=== PATIENT | female | born 1955 ===

== ENCOUNTER → 2019-01-18 13:37 | Outpatient (CLI) | payer OTHER, SELFPAY ==
[2019-01-18 14:15] LABS: Add Manual Diff / Slide Review NO; Basophils Absolute Auto 0 /uL (0-100); Basophils Percent Auto 0.1 % (0-2); Eosinophils Absolute Auto 300 /uL (0-450); Eosinophils Percent Auto 3.4 % (2-4); Hematocrit 38.5 % (36-46); Hemoglobin 13.3 g/dL (12.0-16.0); Lymphocytes Absolute Auto 1800 /uL (1100-4500); Lymphocytes Percent Auto 21.3 % (25-40); Mean Corpuscular HGB Conc 34.6 % (30-36); Mean Corpuscular Hemoglobin 28.4 PG (26-34); Monocytes Absolute Auto 500 /uL (0-900); Monocytes Percent Auto 5.3 % (3-14); Neutrophils Absolute Auto 6000 /uL (1500-7000); Neutrophils Percent Auto 69.9 % (50-75); Platelet Count 263 X10^3/uL (150-400); Red Cell Distribution Width 14.3 % (11.6-14.8); White Blood Cell Count 8.5 X10^3/uL (4.5-11.0)
[2019-01-18 14:44] LABS: Alanine Aminotransferase 77 IU/L (9-52); Albumin 4.7 g/dL (3.5-5.0); Albumin Globulin Ratio 1.4 (1.0-2.8); Alkaline Phosphatase 79 U/L (38-126); Aspartate Aminotransferase 65 IU/L (14-36); BUN Creatinine Ratio 15.7 (6-22); Bilirubin Total 0.6 mg/dL (0.2-1.3); Blood Urea Nitrogen 11 mg/dL (7-17); Calcium 9.6 mg/dL (8.4-10.2); Carbon Dioxide 28 mmol/L (22-32); Chloride 99 mmol/L (98-107); Cholesterol 218 mg/dL (140-199); Estimated Glomerular Filt Rate > 60.0 mL/min (>60); Globulin 3.4 g/dL (1.7-4.1); Glucose 111 mg/dL (80-110); HDL Cholesterol 42 mg/dL (40-60); HEMOLYSIS < 15 (0-50); LDL Cholesterol Calculated 138 mg/dL (<100); Potassium 4.1 mmol/L (3.4-5.1); Sodium 139 mmol/L (137-145); Total Protein 8.1 g/dL (6.3-8.2); Triglycerides 190 mg/dL (35-150)
[2019-01-18 15:19] LABS: TSH w/ Reflex to FT4 0.61 uIU/mL (0.47-4.68)
== END ==
PROVIDERS: PCP Nurse Practitioner; Visit Provider Nurse Practitioner
DX: I10 Essential (primary) hypertension (principal); E66.01 Morbid (severe) obesity due to excess calories; E88.81 Metabolic syndrome and other insulin resistance
CPT/HCPCS: 36415; 80053; 80061; 84443; 85025

== ENCOUNTER 2019-01-18 21:45 | Emergency (ER) | payer OTHER, SELFPAY ==
[2019-01-18 21:50] VITALS: BP 191/92; PULSE 88; RESP 16; TEMP 36.1; O2SAT 97; BMI 42.2
[2019-01-19] VITALS: BP 156/72; PULSE 78; RESP 16; TEMP 36.8; O2SAT 96
[2019-01-19] MEDS: SULFACETAMIDE 10% OPHTH PREPACK 1 BOTTLE MISC (01:10)
[2019-01-19 01:19] VITALS: BP 162/81; PULSE 84; RESP 16; O2SAT 97
--- NOTE | 2019-01-19 04:57 | ED.EYEPROB ---
HPI - Eye Problem General Chief complaint: Eye Problems Stated complaint: LT EYE NOT WORKING RIGHT, PAIN Time Seen by Provider: 01/18/19 22:27 Source: patient and family Mode of arrival: ambulatory Limitations: no limitations History of Present Illness HPI Narrative: 63-year-old female, nonsmoker presents to the emergency department with her in the chief complaint of severe left eye irritation, pain, watering with discharge and blurred vision over the course of the day. She states that she frequently will wake up with irritated eyes are watering and she takes antihistamines and often has to rub them. She does not wear contacts. She denies any other symptoms such as runny nose, sore throat or fever or chills. She has had no rash on her face, the tip of her nose or in her ear. She called the nursing hotline and was encouraged to present to the emergency department for evaluation chief complaint: eye pain and eye redness Onset (ago): hour(s) Onset description: gradual Duration: constant Location: left eye Eye Symptoms: burning, redness, pain, foreign body sensation, itching, discharge and decreased vision Place: home Mechanism: none Severity: moderate If Pain, Quality: burning Treatments Prior to Arrival: none Related Data Home Medications Medication Instructions Recorded Confirmed cetirizine 10 mg tablet 10 mg PO DAILY 01/13/19 01/13/19 Previous Rx's Medication Instructions Recorded [[id number] VAG PERLE] 0 VAGINAL SEE INSTRUCTIONS #30 ea 08/25/17 lisinopril 20 mg tablet 20 mg PO Q DAY #90 tab 11/02/18 Allergies Allergy/AdvReac Type Severity Reaction Status Date / Time doxycycline [DOXYCYCLINE] Allergy Mild DIARRHEA Verified 01/18/19 21:49 erythromycin base Allergy Mild DIARRHEA Verified 01/18/19 21:49 [ERYTHROMYCIN BASE] Review of Systems Constitutional Denies chills, Denies fever(s), Denies lethargy and Denies weakness Eyes Reports change in vision, Reports eye discharge, Reports irritation, Reports itchy eyes and Denies loss of vision ENT Ears, Nose, Mouth, and Throat: Denies change in voice, Denies neck pain and Denies sore throat Cardiovascular Denies chest pain, Denies irregular heart rhythm, Denies lightheadedness, Denies palpitations, Denies dyspnea, Denies dyspnea on exertion and Denies orthopnea Respiratory Denies cough, Denies dyspnea, Denies dyspnea on exertion and Denies wheezing Gastrointestinal Gastrointestinal: Denies abdominal pain, Denies change in bowel habits, Denies diarrhea, Denies nausea and Denies vomiting Genitourinary Denies hematuria, Denies flank pain, Denies urinary incontinence and Denies urinary urgency Musculoskeletal Denies neck pain Integumentary/Breasts Denies pruritus, Denies erythema, Denies rash and Denies wounds Neurologic Denies confusion, Denies loss of vision and Denies weakness Psychiatric Denies anxiety, Denies confusion, Denies depression, Denies homicidal ideation and Denies suicidal ideation Endocrine Denies palpitations Hematologic/Lymphatic Denies easy bruising Allergic/Immunologic Reports itchy eyes and Denies wheezing FORMERLY [facility], [facility] Surgical History History of tonsillectomy Status post dilation and curettage Status post hysterectomy with oophorectomy (12/12/13) Family History (Updated 02/25/16 @ 00:00 by Conversion Provider) Father Cancer Heart disease Grandfather Hypertension Stroke Grandmother Cancer High cholesterol Stroke Mother Age: 79 Breast cancer Cervical cancer Diabetes mellitus Grandfather Liver failure Grandmother Heart disease Social History Smoking Status: Never smoker Family History Father Cancer Heart disease Grandfather Hypertension Stroke Grandmother Cancer High cholesterol Stroke Mother Age: 79 Breast cancer Cervical cancer Diabetes mellitus Grandfather Liver failure Grandmother Heart disease Social History Smoking Status: Never smoker Exam Narrative Exam Narrative: GENERAL: 63-year-old female appears younger than stated age, resting in a dark room but obviously uncomfortable, covering her left eye HEAD: Atraumatic. Normocephalic. No temporal or scalp tenderness. EYES: Pupils are equal and reactive. left eye is erythematous, watering with some drainage. There is a corneal abrasion visible to the naked eye. Upper lid everted and no foreign body noted. near complete resolution of symptoms after proparacaine instilled in eye. Pressure obtained with Clifton-Pen notes 22 in left. Fluorescein uptake overlying the central field of view. No erythematous, warmth or swelling to upper or lower lid ENT: Nose without bleeding, purulent drainage or septal hematoma. Throat without erythema, tonsillar hypertrophy or exudate. Uvula midline. Airway patent. NECK: Trachea midline. No JVD or lymphadenopathy. Supple, nontender, no meningeal signs. CARDIOVASCULAR: Regular rate and rhythm without murmurs, gallops, or rubs. RESPIRATORY: Clear to auscultation. Breath sounds equal bilaterally. No wheezes, rales, or rhonchi. GASTROINTESTINAL: Abdomen soft, non-tender, nondistended. No hepato-splenomegaly, or palpable masses. No guarding. EXTREMITIES: No clubbing, cyanosis, or edema. No joint tenderness, effusion, or edema noted. BACK: Nontender without deformity or crepitance. No flank tenderness. NEURO: AOx3. SKIN: No rash or erythema. Initial Vital Signs Initial Vital Signs: Vital Signs Temperature 97.0 F L 01/18/19 21:50 Pulse Rate 88 01/18/19 21:50 Respiratory Rate 16 01/18/19 21:50 Blood Pressure 191/92 H 01/18/19 21:50 Pulse Oximetry 97 01/18/19 21:50 Course Orders Ordered: Discontinued Medications Sulfacetamide (Bleph-10 Prepack) 1 bottle MISC SEEINSTR ONE Stop: 01/19/19 00:59 Last Admin: 01/19/19 01:10 Dose: 1 bottle Vital Signs - 8 hr 01/18/19 21:50 01/19/19 00:00 01/19/19 01:19 Temperature 97.0 F L 98.2 F Pulse Rate 88 78 84 Respiratory Rate 16 16 16 Blood Pressure 191/92 H 162/81 H Blood Pressure [Left Arm] 156/72 H Pulse Oximetry 97 96 97 MDM - Eye Problem MDM Narrative Medical decision making narrative: Corneal abrasion with superinfection thought most likely cause given above described history and physical. Acute angle closure glaucoma considered but thought less likely given reactivity of pupil and normal pressure. Preseptal cellulitis considered but thought less likely given lack of consistent findings Discharge Plan Departure Patient Disposition: Home Clinical Impression: Corneal abrasion Qualifiers: Encounter type: initial encounter Laterality: left Qualified Code(s): S05.02XA - Injury of conjunctiva and corneal abrasion without foreign body, left eye, initial encounter Conjunctivitis Qualifiers: Conjunctivitis type: acute Acute conjunctivitis type: unspecified Laterality: left Qualified Code(s): H10.32 - Unspecified acute conjunctivitis, left eye Discharge Date/Time: 01/19/19 01:20 Interventions: ED Discharge Assessment Last Done: 01/19/19 01:19 Instructions: DI for Corneal Abrasion Activity Restrictions/Additional Instructions: *You have been diagnosed with [acute corneal abrasion with conjunctivitis ] *What to do: *Take medications as directed *Follow up with your host/hostess ground, call for an appointment. Let them know you were seen in the Emergency Department and that we ask that you be seen in follow up *Return to ER if you should have any new, worsening or concerning symptoms Prescriptions: No Action [[id number] VAG PERLE] Vaginal SEE INSTRUCTIONS Qty: 30 RF: 5 lisinopril [Prinivil] 20 mg tablet 20 mg PO Q DAY Qty: 90 RF: 0 cetirizine [Zyrtec] 10 mg tablet 10 mg PO DAILY RF: 0 Referrals: Jenn Loza ARNP [Primary Care Provider] - Eusebio Hawthorne MD [Physician] -
== END 2019-01-19 01:20 | disposition home or self-care (01) ==
PROVIDERS: Emergency Provider Emergency Medicine; PCP Nurse Practitioner
DX: S05.02XA Injury of conjunctiva and corneal abrasion without foreign body, left eye, initial encounter (principal)
CPT/HCPCS: 99283

== ENCOUNTER → 2019-01-19 14:00 | Outpatient (CLI) | payer OTHER, SELFPAY | PROVIDERS: PCP Nurse Practitioner; Visit Provider Ophthalmology | DX: H16.9 Unspecified keratitis (principal) | CPT/HCPCS: 87070; 87205; 87252 ==

== ENCOUNTER → 2019-01-20 07:45 | Outpatient (CLI) | payer OTHER, SELFPAY ==
--- NOTE | 2019-01-20 | DI.MG.S_ITS ---
BILATERAL DIGITAL SCREENING MAMMOGRAM 3D/2D WITH CAD: 01/20/2019 CLINICAL: Routine screening. Family history of breast cancer. Comparison is made to exams dated: 07/13/2013 mammogram, 02/09/2012 mammogram, and 02/06/2011 mammogram - [facility]. There are scattered fibroglandular elements in both breasts. Current study was also evaluated with a Computer Aided Detection (CAD) system. There is an oval circumscribed benign-appearing intramammary lymph node projecting over the right breast superior aspect posterior depth that is stable in size and morphology on multiple prior comparison exams dating back to at least 02/09/2012, but projects slightly more anteriorly due to patient positioning. There is an oval circumscribed benign-appearing intramammary lymph node projecting over the left breast superior medial aspect middle depth that is stable in size and morphology on multiple prior comparison exams dating back to at least 02/09/2012. There also are benign-appearing secretory calcifications in both breasts. No significant masses, calcifications, or other findings are seen in either breast. There has been no significant interval change. IMPRESSION: There is no mammographic evidence of malignancy. A 1 year screening mammogram is recommended. This exam was interpreted at Station ID: [id number]. NOTE: For mammograms, a report in lay terms will be sent to the patient. Approximately 15% of breast malignancies will not be visualized mammographically. In the management of a palpable breast mass, a negative mammogram must not discourage biopsy of a clinically suspicious lesion. Electronically Signed By: Alvin Quan M.D. ecl/:01/20/2019 12:04:57 letter sent: Normal Exam ACR BI-RADS Category 2: Benign Finding(s) 3342F
== END ==
PROVIDERS: PCP Nurse Practitioner; Visit Provider Nurse Practitioner
DX: Z12.31 Encounter for screening mammogram for malignant neoplasm of breast (principal)
CPT/HCPCS: 77063; 77067

== ENCOUNTER → 2019-01-25 17:30 | Outpatient (REF) | payer OTHER, SELFPAY | LOC: LAB 17:30 | PROVIDERS: PCP Nurse Practitioner; Visit Provider Ophthalmology | DX: H16.9 Unspecified keratitis (principal) | CPT/HCPCS: 87070; 87205; 87206 ==

== ENCOUNTER → 2019-01-27 19:28 | Outpatient (REF) | payer OTHER, SELFPAY | LOC: LAB 19:28 | PROVIDERS: PCP Nurse Practitioner; Visit Provider Ophthalmology | DX: Z22.322 Carrier or suspected carrier of Methicillin resistant Staphylococcus aureus (principal) | CPT/HCPCS: 87081 ==

== ENCOUNTER → 2020-03-23 08:23 | Outpatient (CLI) | payer OTHER, SELFPAY ==
[2020-03-23 09:38] LABS: Hemoglobin A1C% w Est Avg Glu 6.9 % (4.0-6.0)
[2020-03-23 09:44] LABS: Alanine Aminotransferase 69 IU/L (<35); Albumin 4.4 g/dL (3.5-5.0); Albumin Globulin Ratio 1.3 (1.0-2.8); Alkaline Phosphatase 70 U/L (38-126); Aspartate Aminotransferase 56 IU/L (14-36); BUN Creatinine Ratio 17.7 (6-22); Bilirubin Total 0.5 mg/dL (0.2-1.3); Blood Urea Nitrogen 11 mg/dL (7-17); Calcium 9.6 mg/dL (8.4-10.2); Carbon Dioxide 28 mmol/L (22-32); Chloride 100 mmol/L (98-107); Cholesterol 126 mg/dL (140-199); Estimated Glomerular Filt Rate > 60.0 mL/min (>60); Globulin 3.3 g/dL (1.7-4.1); Glucose 141 mg/dL (80-110); HDL Cholesterol 37 mg/dL (40-60); HEMOLYSIS < 15 (0-50); LDL Cholesterol Calculated 60 mg/dL (<100); Potassium 3.9 mmol/L (3.4-5.1); Sodium 137 mmol/L (137-145); Total Protein 7.7 g/dL (6.3-8.2); Triglycerides 146 mg/dL (35-150)
[2020-03-23 10:15] LABS: Thyroid Stimulating Hormone 0.89 uIU/mL (0.47-4.68)
[2020-03-23 10:41] LABS: Creatinine Urine Random 128.5 mg/dL
[2020-03-23 10:45] LABS: Microalbumi Creatinin Ratio Ur 8.5 ug/mg CR (<30); Microalbumin Urine Random 1.1 mg/dL (0-1.6)
[2020-03-26 11:09] LABS: Fecal Immunochemical Test Negative (Negative)
== END ==
PROVIDERS: PCP Nurse Practitioner; Referring Provider Nurse Practitioner; Visit Provider Nurse Practitioner
DX: Z13.29 Encounter for screening for other suspected endocrine disorder (principal); Z12.11 Encounter for screening for malignant neoplasm of colon; E66.01 Morbid (severe) obesity due to excess calories; E88.81 Metabolic syndrome and other insulin resistance; I10 Essential (primary) hypertension
CPT/HCPCS: 36415; 80053; 80061; 82043; 82274; 82570; 83036; 84443

== ENCOUNTER → 2020-05-21 08:36 | Outpatient (CLI) | payer OTHER, SELFPAY ==
--- NOTE | 2020-05-21 08:37 | DI.MG.S_ITS ---
BILATERAL DIGITAL SCREENING MAMMOGRAM 3D/2D WITH CAD: 05/21/2020 CLINICAL: Routine screening. Family history of breast cancer. Comparison is made to exams dated: 01/20/2019 mammogram, 07/13/2013 mammogram, and 02/09/2012 mammogram - [facility]. There are scattered fibroglandular elements in both breasts. Current study was also evaluated with a Computer Aided Detection (CAD) system. There is a benign intramammary node in both breasts. There also are benign calcifications in both breasts. No significant masses, calcifications, or other findings are seen in either breast. There has been no significant interval change. IMPRESSION: BENIGN There is no mammographic evidence of malignancy. A 1 year screening mammogram is recommended. This exam was interpreted at Station ID: [id number]. NOTE: For mammograms, a report in lay terms will be sent to the patient. Approximately 15% of breast malignancies will not be visualized mammographically. In the management of a palpable breast mass, a negative mammogram must not discourage biopsy of a clinically suspicious lesion. Electronically Signed By: Jarek aldana/[place]:05/21/2020 10:02:19 letter sent: Normal Exam ACR BI-RADS Category 2: Benign Finding(s) 3342F
== END ==
PROVIDERS: PCP Nurse Practitioner; Referring Provider Nurse Practitioner; Visit Provider Nurse Practitioner
DX: Z12.31 Encounter for screening mammogram for malignant neoplasm of breast (principal); Z80.3 Family history of malignant neoplasm of breast
CPT/HCPCS: 77063; 77067

== ENCOUNTER → 2020-08-08 07:39 | Outpatient (CLI) | payer OTHER, SELFPAY ==
[2020-08-08 08:21] LABS: Hemoglobin A1C% w Est Avg Glu 5.8 % (4.0-6.0)
[2020-08-08 09:14] LABS: Alanine Aminotransferase 34 IU/L (<35); Albumin 4.5 g/dL (3.5-5.0); Albumin Globulin Ratio 1.5 (1.0-2.8); Alkaline Phosphatase 75 U/L (38-126); Aspartate Aminotransferase 35 IU/L (14-36); Bilirubin Total 0.5 mg/dL (0.2-1.3); Bilirubin Unconjugated 0.5 mg/dL (0.0-1.1); Glucose 103 mg/dL (80-110); HEMOLYSIS < 15 (0-50); Total Protein 7.5 g/dL (6.3-8.2)
== END ==
PROVIDERS: PCP Nurse Practitioner; Referring Provider Nurse Practitioner; Visit Provider Nurse Practitioner
DX: E66.01 Morbid (severe) obesity due to excess calories (principal); E78.5 Hyperlipidemia, unspecified; E88.81 Metabolic syndrome and other insulin resistance; I10 Essential (primary) hypertension; Z79.899 Other long term (current) drug therapy
CPT/HCPCS: 36415; 80076; 82947; 83036

== ENCOUNTER → 2020-10-23 07:33 | Outpatient (CLI) | payer OTHER, SELFPAY ==
[2020-10-23 08:27] LABS: Hemoglobin A1C% w Est Avg Glu 5.7 % (4.0-6.0)
[2020-10-23 17:11] LABS: Creatinine Urine Random 65.6 mg/dL
[2020-10-23 17:21] LABS: Microalbumin Urine Random < 0.6 mg/dL (0-1.6)
== END ==
PROVIDERS: PCP Nurse Practitioner; Referring Provider Nurse Practitioner; Visit Provider Nurse Practitioner
DX: R73.01 Impaired fasting glucose (principal)
CPT/HCPCS: 36415; 82043; 82570; 83036

== ENCOUNTER → 2021-02-12 09:28 | Outpatient (CLI) | payer OTHER, SELFPAY ==
[2021-02-12 10:25] LABS: Hemoglobin A1C% w Est Avg Glu 5.4 % (4.0-6.0)
== END ==
PROVIDERS: PCP Nurse Practitioner; Referring Provider Nurse Practitioner; Visit Provider Nurse Practitioner
DX: E66.09 Other obesity due to excess calories (principal); R73.01 Impaired fasting glucose; Z68.34 Body mass index [BMI] 34.0-34.9, adult; Z79.899 Other long term (current) drug therapy
CPT/HCPCS: 36415; 83036

== ENCOUNTER → 2021-03-23 08:43 | Outpatient (CLI) | payer OTHER, SELFPAY ==
[2021-03-23 09:53] LABS: Hemoglobin A1C% w Est Avg Glu 5.4 % (4.0-6.0)
[2021-03-23 09:59] LABS: Alanine Aminotransferase 24 IU/L (<35); Albumin 4.2 g/dL (3.5-5.0); Albumin Globulin Ratio 1.5 (1.0-2.8); Alkaline Phosphatase 62 U/L (38-126); Aspartate Aminotransferase 27 IU/L (14-36); BUN Creatinine Ratio 27.6 (6-22); Bilirubin Total 0.4 mg/dL (0.2-1.3); Blood Urea Nitrogen 16 mg/dL (7-17); Calcium 9.8 mg/dL (8.4-10.2); Carbon Dioxide 29 mmol/L (22-32); Chloride 104 mmol/L (98-107); Cholesterol 128 mg/dL (140-199); Estimated Glomerular Filt Rate > 60.0 mL/min (>60); Globulin 2.8 g/dL (1.7-4.1); Glucose 97 mg/dL (80-110); HDL Cholesterol 59 mg/dL (40-60); HEMOLYSIS < 15 (0-50); LDL Cholesterol Calculated 57 mg/dL (<100); Potassium 4.3 mmol/L (3.4-5.1); Sodium 139 mmol/L (137-145); Triglycerides 60 mg/dL (35-150)
[2021-03-23 10:16] LABS: Free T3, Triiodothyronine Free 3.89 pg/mL (2.77-5.27); Free T4, Direct Thyroxine 1.07 ng/dL (0.78-2.19)
[2021-03-23 10:30] LABS: Thyroid Stimulating Hormone 1.32 uIU/mL (0.47-4.68)
[2021-03-23 11:07] LABS: Creatinine Urine Random 38.6 mg/dL
[2021-03-23 11:13] LABS: Microalbumin Urine Random < 0.6 mg/dL (0-1.6)
== END ==
PROVIDERS: PCP Nurse Practitioner; Referring Provider Nurse Practitioner; Visit Provider Nurse Practitioner
DX: Z00.00 Encounter for general adult medical examination without abnormal findings (principal); I10 Essential (primary) hypertension; E78.5 Hyperlipidemia, unspecified; R73.01 Impaired fasting glucose; Z79.899 Other long term (current) drug therapy
CPT/HCPCS: 36415; 80053; 80061; 82043; 82570; 83036; 84439; 84443; 84481

== ENCOUNTER → 2022-10-30 09:08 | Outpatient (CLI) | payer OTHER, SELFPAY ==
[2022-10-30 11:06] LABS: COVID19 -Nasal RAPID Negative (Negative)
== END ==
PROVIDERS: PCP Nurse Practitioner; Visit Provider Surgery
DX: Z20.822 Contact with and (suspected) exposure to COVID-19 (principal); Z01.812 Encounter for preprocedural laboratory examination
CPT/HCPCS: 87635; C9803

== ENCOUNTER 2022-10-31 06:53 | Day surgery (SDC) | payer OTHER, SELFPAY ==
[2022-10-31 07:26] VITALS: BMI 35.2
[2022-10-31 07:35] VITALS: BP 139/86; PULSE 76; RESP 16; TEMP 36.2; O2SAT 95
[2022-10-31] MEDS: ONDANSETRON 4 MG/2 ML INJ IV (07:37)
[2022-10-31] MEDS: LACTATED RINGERS 1,000 ML 84 ML IV (07:46)
--- NOTE | 2022-10-31 07:50 | PM.HP.1 ---
History of Present Illness History of Present Illness Chief complaint: SCREENING COLONOSCOPY Narrative: Ms. Weiss has never had a colonoscopy before she is here today for screening. She has no family history of colon cancer. She is not had any bleeding or changes in her bowel habits that are concerning. She has had a hysterectomy for prolapse and a knee replacement and condition runs in her family which makes her have a lot of bone spurs. She has had nausea with anesthesia in the past Patient History Medical History Class 1 obesity due to excess calories with body mass index (BMI) of 34.0 to 34.9 in adult Elevated fasting blood sugar Hyperlipidemia Left knee pain (02/20/15) Metabolic syndrome (08/25/17) Morbid obesity with body mass index (BMI) of 40.0 to 49.9 (02/20/15) Non-insulin dependent diabetes mellitus Other care home (current) drug therapy Surgical History History of tonsillectomy S/P total knee arthroplasty Status post dilation and curettage Status post hysterectomy with oophorectomy (12/12/13) Family & Social History Family History Father Cancer Heart disease Grandfather Hypertension Stroke Grandmother Cancer High cholesterol Stroke Mother Age: 83 Breast cancer Cervical cancer Diabetes mellitus Grandfather Liver failure Grandmother Heart disease Tobacco & Substance use: Smoking Status Never smoker alcohol intake frequency holiday/special occasion Substance Use Type does not use Meds Home Medications and Allergies Home Medications Medication Instructions Recorded Confirmed Type cetirizine 10 mg tablet (Zyrtec) 10 mg PO DAILY 01/13/19 10/31/22 History adjuvant AS01B (PF)vial 1 of 2 0.5 ml IM ONCE #0.5 mL 01/20/19 10/31/22 Rx (Shingrix Adjuvant Component (PF) intramuscular suspension) ascorbic acid (vitamin C) 500 mg mg PO 03/13/20 09/02/22 History capsule cholecalciferol (vitamin D3) 25 25 mcg PO DAILY 03/13/20 10/31/22 History mcg (1,000 unit) capsule fexofenadine 60 mg tablet (Meena 60 mg PO BID 03/13/20 10/31/22 History Allergy) lactobacillus combination no.8 PO 03/13/20 09/02/22 History [Adult Probiotic] multivitamin 1 tab PO DAILY 03/13/20 10/31/22 History blood-glucose meter #1 ea 03/27/20 09/02/22 Rx lancets #200 ea 03/27/20 09/02/22 Rx blood sugar diagnostic (Blood #200 ea 04/04/21 09/02/22 Rx Glucose Test strips) atorvastatin 10 mg tablet See Rx Instructions .Route 08/27/22 10/31/22 Rx .COMPLEX #90 tabs Allertec See Rx Instructions .Route 09/02/22 10/31/22 Rx .COMPLEX #1 cap Cinnamon 1000mg See Rx Instructions .Route .COMPLEX 09/02/22 10/31/22 History Elderberry Gummies See Rx Instructions .Route .COMPLEX 09/02/22 10/31/22 History Turmeric Chromium See Rx Instructions .Route .COMPLEX 09/02/22 10/31/22 History acyclovir 400 mg tablet See Rx Instructions .Route 09/02/22 10/31/22 Rx .COMPLEX #20 tabs hydrochlorothiazide 25 mg tablet See Rx Instructions .Route 09/26/22 Rx .COMPLEX #90 tabs lisinopril 20 mg tablet See Rx Instructions .Route 09/26/22 10/31/22 Rx .COMPLEX #90 tabs sodium,potassium,mag sulfates 17.5 See Rx Instructions PO .COMPLEX 10/17/22 10/31/22 Rx gram-3.13 gram-1.6 gram oral soln #354 mL (Suprep Bowel Prep Kit) Allergies Allergy/AdvReac Type Severity Reaction Status Date / Time doxycycline [DOXYCYCLINE] Allergy Mild DIARRHEA Verified 10/31/22 07:21 erythromycin base Allergy Mild DIARRHEA Verified 10/31/22 07:21 [ERYTHROMYCIN BASE] Exam Vital Signs (past 8 hours): - 10/31/22 07:35 Temperature 97.1 F L Pulse Rate 76 Respiratory Rate 16 Blood Pressure 139/86 Pulse Oximetry 95 Oxygen Delivery Method Room Air Oxygen Delivery Method Room Air Const General: cooperative and healthy appearing Nutritional Appearance: obese HENMT Head: normal to inspection Resp Effort & Inspection: normal respiratory effort and able to speak in complete sentences GI Palpation: soft and No tender Assessment & Plan Assessment and plan (1) Screening for colon cancer: Status: Acute Assessment & Plan narrative: I discussed the risks benefits and alternatives of a screening colonoscopy with Ms. Weiss it specifically I discussed the risk of an incomplete exam or perforation of the colon for risks though they are rare. She fully understands and would like to proceed Time Spent With Patient Critical Care time: I spent a total of [] minutes of critical care time on this patient's care today; this time is exclusive of procedural time.
[2022-10-31 08:30] VITALS: BP 112/64; PULSE 78; RESP 16; TEMP 36.2; O2SAT 98
[2022-10-31 08:33] VITALS: BP 105/60; PULSE 56; RESP 12; TEMP 36.7; O2SAT 97
--- NOTE | 2022-10-31 08:41 | P.OP.COLON_ITS ---
Procedure & Clinicians Study performed: Colonoscopy Same procedure as scheduled: Yes Indications: Screening Surgeon: Ellen Stevens Procedure Notes Procedure in detail: Patient was taken to the endoscopy suite and placed in a left lateral decubitus position. Time-out was performed. Conscious sedation was performed by anesthesiologist Dr. Corbin. A digital rectal exam was performed no strictures or masses were felt. The colonoscope was introduced into the anal canal and advanced through to the cecum. A photograph was taken of the appendiceal orifice. A few scattered diverticula were seen in the sigmoid colon. No polyps were appreciated. No biopsy was taken. The prep was very good [place] bowel prep 3. Specimen(s): none sent Complications: none
[2022-10-31 08:45] VITALS: BP 101/66; PULSE 57; RESP 97; TEMP 36.8; O2SAT 98
== END 2022-10-31 09:00 | disposition home or self-care (01) ==
PROVIDERS: PCP Nurse Practitioner; Referring Provider Surgery; Visit Provider Surgery
PROC: 0DJD8ZZ Inspection of Lower Intestinal Tract, Via Natural or Artificial Opening Endoscopic (ICD-10-PCS; CPT 45378; principal; 2022-10-31 07:45)
DX: Z12.11 Encounter for screening for malignant neoplasm of colon (principal); K57.30 Diverticulosis of large intestine without perforation or abscess without bleeding
CPT/HCPCS: 45378; J2405; J2704

== ENCOUNTER → 2022-11-03 08:59 | Outpatient (CLI) | payer OTHER, SELFPAY ==
[2022-11-03 10:16] LABS: Creatinine Urine Random 107.2 mg/dL
[2022-11-03 10:19] LABS: Hemoglobin A1C% w Est Avg Glu 5.7 % (4.0-6.0)
[2022-11-03 10:20] LABS: Microalbumi Creatinin Ratio Ur 6.5 ug/mg CR (<30); Microalbumin Urine Random 0.7 mg/dL (0-1.6)
[2022-11-03 10:39] LABS: Alanine Aminotransferase 25 IU/L (<35); Albumin 4.5 g/dL (3.5-5.0); Albumin Globulin Ratio 1.3 (1.0-2.8); Alkaline Phosphatase 69 U/L (38-126); Aspartate Aminotransferase 27 IU/L (14-36); Bilirubin Total 0.5 mg/dL (0.2-1.3); Blood Urea Nitrogen 13 mg/dL (7-17); Calcium 9.4 mg/dL (8.4-10.2); Carbon Dioxide 25 mmol/L (22-32); Chloride 104 mmol/L (98-107); Cholesterol 149 mg/dL (140-199); Estimated Glomerular Filt Rate > 60 mL/min (>60); Globulin 3.6 g/dL (1.7-4.1); Glucose 108 mg/dL (80-110); HDL Cholesterol 40 mg/dL (40-60); HEMOLYSIS < 15 (0-50); LDL Cholesterol Calculated 79 mg/dL (<100); Potassium 3.9 mmol/L (3.4-5.1); Sodium 140 mmol/L (137-145); Total Protein 8.1 g/dL (6.3-8.2); Triglycerides 148 mg/dL (35-150)
[2022-11-03 10:53] LABS: Free T3, Triiodothyronine Free 3.68 pg/mL (2.77-5.27); Free T4, Direct Thyroxine 1.17 ng/dL (0.78-2.19)
[2022-11-03 11:07] LABS: Thyroid Stimulating Hormone 1.32 uIU/mL (0.47-4.68)
--- NOTE | 2022-11-03 12:43 | DI.MG.S_ITS ---
BILATERAL DIGITAL SCREENING MAMMOGRAM 3D/2D WITH CAD: 11/03/2022 CLINICAL: Routine screening. Family history of breast cancer. Comparison is made to exams dated: 05/21/2020 mammogram, 01/20/2019 mammogram, and 07/13/2013 mammogram - [facility]. There are scattered areas of fibroglandular density in both breasts (category b / 25%-50% glandular tissue). Current study was also evaluated with a Computer Aided Detection (CAD) system. There is a benign intramammary node in both breasts. There also are benign calcifications in both breasts. No significant masses, calcifications, or other findings are seen in either breast. There has been no significant interval change. IMPRESSION: BENIGN There is no mammographic evidence of malignancy. A 1 year screening mammogram is recommended. Based on the Tyrer Cuzick model (a risk assessment model) the patient's lifetime risk is 9.8% and her 10 year risk is 4.7%. According to the ACR, ACS, and NCCN guidelines, an annual breast MRI exam along with mammogram is recommended if the patient's lifetime risk is 20% or greater. This exam was interpreted at Station ID: [id number]. NOTE: For mammograms, a report in lay terms will be sent to the patient. Approximately 15% of breast malignancies will not be visualized mammographically. In the management of a palpable breast mass, a negative mammogram must not discourage biopsy of a clinically suspicious lesion. Electronically Signed By: Raghavendra waldron/[place]:11/03/2022 14:12:18 letter sent: Normal Exam ACR BI-RADS Category 2: Benign Finding(s) 3342F
[2022-11-03 17:37] LABS: Hep C Virus Ab w/Reflex Quant NEGATIVE s/c (NEGATIVE)
--- NOTE | 2022-12-04 12:59 | DI.ECHO.S_ITS ---
+ + Reason For Study: HYPERTENSION : :Ordering Physician: LUCILLE, : :HILDA DENNY Performed By: Serenity Mauricio : :Referring: HILDA ADKINS : + + Interpretation Summary The ejection fraction is estimated to be 60-65%. There is mild to moderate mitral regurgitation. There is mild tricuspid regurgitation. Procedure: A two-dimensional transthoracic echocardiogram with color flow and Doppler was performed. The study quality was technically adequate. There is no prior echocardiogram noted for this patient. The patient was in sinus rhythm with heart rates between 58-74 bpm during the exam. Left Ventricle: The left ventricle is normal in size and wall thickness. The ejection fraction is estimated to be 60-65%. Left ventricular wall motion is normal. Right Ventricle: The right ventricle is normal in size and function. Atria: The left atrium is mildly dilated. Right atrial size is normal. There is no Doppler evidence for an interatrial shunt. Mitral Valve: The mitral valve is normal in structure and function. There is mild to moderate mitral regurgitation. Aortic Valve: The aortic valve is trileaflet. The aortic valve opens well. There is no aortic valve stenosis. No aortic regurgitation is present. Tricuspid Valve: The tricuspid valve is normal in structure and function. There is mild tricuspid regurgitation. Pulmonary artery pressures cannot be estimated because of the lack of a measurable TR jet velocity. Pulmonic Valve: The pulmonic valve leaflets are thin and pliable; valve motion is normal. There is mild pulmonic regurgitation. Great Vessels: The aortic root is normal size. The dimensions of the ascending aorta are normal. The IVC is of normal diameter and collapses greater than 50% with a sniff. This suggests a low right atrial pressure of 3 mm Hg. Pericardium/ Pleura There is no pericardial effusion. There is no pleural effusion. MMode/2D Measurements & Calculations LVIDd: 4.3 cm LVOT diam: 2.2 cm LVIDs: 2.8 cm Ao root diam: 3.1 cm FS: 35.5 % asc Aorta Diam: 3.1 cm IVSd: 1.0 cm Ao Arch Diam (Prox Trans): 2.5 cm LVPWd: 0.87 cm LV tristan. diameter/BSA (cm/m^2): 2.4 LV sys. diameter/BSA (cm/m^2): 1.6 LA A2 area: 18.8 cm2 RA long axis: 4.9 cm LA A4 area: 18.2 cm2 RA area: 14.3 cm2 LA length (vol): 4.8 cm RA vol: 35.5 ml LA vol: 60.7 ml RA : 19.9 ml/m2 LA vol index: 34.1 ml/m2 IVC diam: 1.6 cm RVD1 (basal): 3.8 cm RVD2 (mid): 3.2 cm TAPSE: 1.6 cm Doppler Measurements & Calculations Ao V2 max: 131.7 cm/sec LVOT Max Federico: 108.3 cm/sec Ao V2 mean: 97.0 cm/sec LV V1 max P.7 mmHg Ao max P.9 mmHg LV V1 VTI: 23.8 cm Ao mean P.2 mmHg NOLVIA(I,D): 3.4 cm2 Ao V2 VTI: 26.6 cm NOLIVA(V,D): 3.1 cm2 sev ratio: 0.90 NOLVIA indexed to BSA (cm^2/m^2): 1.9 MV E max federico: 75.8 cm/sec PA V2 max: 94.6 cm/sec MV A max federico: 66.2 cm/sec PA V2 mean: 61.9 cm/sec MV E/A: 1.1 PA mean P.8 mmHg Med Peak E' Federico: 5.0 cm/sec PA pr(Accel): 20.8 mmHg E/E' med: 15.3 Lat Peak E' Federico: 8.1 cm/sec E/E' lat: 9.4 E/e' average: 12.3 MV dec time: 0.22 sec SV(LVOT): 90.8 ml Reading Physician:03:20 PM
== END ==
PROVIDERS: PCP Nurse Practitioner; Referring Provider Nurse Practitioner; Visit Provider Nurse Practitioner
DX: Z12.31 Encounter for screening mammogram for malignant neoplasm of breast (principal); Z80.3 Family history of malignant neoplasm of breast; Z13.820 Encounter for screening for osteoporosis; Z78.0 Asymptomatic menopausal state; I10 Essential (primary) hypertension; E11.9 Type 2 diabetes mellitus without complications; E78.2 Mixed hyperlipidemia; Z11.59 Encounter for screening for other viral diseases; Z79.899 Other long term (current) drug therapy; Z90.710 Acquired absence of both cervix and uterus
CPT/HCPCS: 36415; 77063; 77067; 77080; 80053; 80061; 82043; 82570; 83036; 84439; 84443; 84481; 86803; 93306

== ENCOUNTER → 2022-12-09 13:26 | Outpatient (CLI) | payer OTHER, SELFPAY | PROVIDERS: PCP Nurse Practitioner; Referring Provider Nurse Practitioner; Visit Provider Nurse Practitioner | DX: I10 Essential (primary) hypertension (principal) | CPT/HCPCS: 93005 ==

== ENCOUNTER → 2023-03-12 07:45 | Outpatient (CLI) | payer OTHER, SELFPAY ==
[2023-03-12 08:44] LABS: Alanine Aminotransferase 28 IU/L (<35); Albumin 4.7 g/dL (3.5-5.0); Albumin Globulin Ratio 1.6 (1.0-2.8); Alkaline Phosphatase 65 U/L (38-126); Aspartate Aminotransferase 28 IU/L (14-36); BUN Creatinine Ratio 21.9 (6-22); Bilirubin Total 0.7 mg/dL (0.2-1.3); Blood Urea Nitrogen 14 mg/dL (7-17); Calcium 9.7 mg/dL (8.4-10.2); Carbon Dioxide 28 mmol/L (22-32); Chloride 99 mmol/L (98-107); Estimated Glomerular Filt Rate > 60 mL/min (>60); Glucose 107 mg/dL (80-110); HEMOLYSIS < 15 (0-50); Potassium 4.1 mmol/L (3.4-5.1); Sodium 137 mmol/L (137-145); Total Protein 7.7 g/dL (6.3-8.2)
[2023-03-12 16:29] LABS: HIV 1 & 2 Ab/Ag 4th Gen Combo NEGATIVE (NEGATIVE)
[2023-03-13 06:44] LABS: x Labcorp Estim. Avg Glu (eAG) 126 mg/dL (.)
== END ==
PROVIDERS: PCP Nurse Practitioner; Referring Provider Nurse Practitioner; Visit Provider Nurse Practitioner
DX: R73.01 Impaired fasting glucose (principal); Z11.4 Encounter for screening for human immunodeficiency virus [HIV]
CPT/HCPCS: 36415; 80053; 83036; 87389

== ENCOUNTER 2023-05-02 11:44 | Emergency (ER) | payer MEDICARE, OTHER, SELFPAY ==
[2023-05-02 11:48] VITALS: BP 149/76; PULSE 61; RESP 18; TEMP 36.6; O2SAT 97; BMI 35.9
--- NOTE | 2023-05-02 11:56 | DI.RAD.S_ITS ---
PROCEDURE: XR SHOULDER LT MIN 2V INDICATIONS: fall/pain TECHNIQUE: 3 views of the shoulder were acquired. COMPARISON: None. FINDINGS: Bones: No fractures or dislocations. No suspicious bony lesions. Visualized ribs appear intact. Degenerative changes of the acromioclavicular and glenohumeral joints. Soft tissues: No suspicious soft tissue calcifications. IMPRESSION: Left shoulder without acute fracture or dislocation. 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 If there is persistent clinical concern for occult fracture given adequate mechanism of injury, consider repeat imaging in 10-14 days. Dictated by: Jarek Diaz M.D. on 05/02/2023 at 11:35 Approved by: Jarek Diaz M.D. on 05/02/2023 at 11:36
--- NOTE | 2023-05-02 11:58 | DI.CT.S_ITS ---
PROCEDURE: CT HEAD/BRAIN WO CON INDICATIONS: fall/headache pain TECHNIQUE: Noncontrast 4.5 mm thick angled axial sections acquired from the foramen magnum to the vertex, with coronal and sagittal reformats. For radiation dose reduction, the following was used: automated exposure control, adjustment of mA and/or kV according to patient size. COMPARISON: None. FINDINGS: Image quality: Excellent. CSF spaces: Basal cisterns are patent. No extra-axial fluid collections. Ventricles are normal in size and shape. Brain: No midline shift. No intracranial masses or hemorrhage. Maradiaga-white matter interface is normal. Skull and face: Left parietal scalp contusion. Calvarium and visualized facial bones are intact, without suspicious lesions. Sinuses: Visualized sinuses and mastoids are clear. IMPRESSION: CT head without acute intracranial abnormalities. Left parietal scalp contusion without underlying calvarial fractures. Dictated by: Jarek Diaz M.D. on 05/02/2023 at 11:31 Approved by: Jarek Diaz M.D. on 05/02/2023 at 11:31
[2023-05-02 13:51] VITALS: BP 171/70; PULSE 57; O2SAT 98
--- NOTE | 2023-05-02 13:59 | ED.HEATRA ---
HPI - Head Injury General Chief complaint: Head Injury Stated complaint: Head inj Time Seen by Provider: 05/02/23 13:59 Source: patient Mode of arrival: Ambulatory History of Present Illness HPI Narrative: Patient is a 68-year-old female history of hypertension hyperlipidemia who presents 6 days after ground level. She is not on antiplatelet or anticoagulation medication. She reports she was running when she slipped and hit her head on a door jam. She hit the top left parietal side of her head. She did not lose consciousness she is not had any nausea vomiting numbness tingling or weakness. She denies any neck pain. She is having some left shoulder pain as well. She called her primary who recommended she take Tylenol rather than ibuprofen however today she is having persistent headache and just wanted to get checked out. She is noted to have significant contusion over her left periorbital area with a subconjunctival hemorrhage. She reports she did not hit her eye she is not having vision changes that the bruising showed up the day after she hit the top of her head. Related Data Home Medications Medication Instructions Recorded Confirmed cetirizine 10 mg tablet (Zyrtec) 10 mg PO DAILY 01/13/19 10/31/22 ascorbic acid (vitamin C) 500 mg mg PO 03/13/20 09/02/22 capsule cholecalciferol (vitamin D3) 25 25 mcg PO DAILY 03/13/20 10/31/22 mcg (1,000 unit) capsule fexofenadine 60 mg tablet (Meena 60 mg PO BID 03/13/20 10/31/22 Allergy) lactobacillus combination no.8 PO 03/13/20 09/02/22 [Adult Probiotic] multivitamin 1 tab PO DAILY 03/13/20 10/31/22 Elderberry Gummies See Rx Instructions .Route .COMPLEX 09/02/22 10/31/22 Turmeric Chromium See Rx Instructions .Route .COMPLEX 09/02/22 10/31/22 Previous Rx's Medication Instructions Recorded blood-glucose meter #1 ea 03/27/20 lancets #200 ea 03/27/20 blood sugar diagnostic (Blood #200 ea 04/04/21 Glucose Test strips) Allertec See Rx Instructions .Route 09/02/22 .COMPLEX #1 cap pneumoc 20-alana conj-dip cr(PF) 0.5 0.5 ml IM ONCE #0.5 mL 12/09/22 mL IM syringe (Prevnar 20 (PF)) tetanus-diphtheria toxoids-Td 2 Lf 0.5 ml IM ONCE #0.5 mL 12/09/22 unit-2 Lf unit/0.5 mL IM suspension varicella-zoster glycoE [id number] 0.5 ml IM ONCE #1 ea 12/09/22 adj(PF) 50 mcg/0.5 mL IM susp, kit (Shingrix (PF)) atorvastatin 10 mg tablet See Rx Instructions .Route 01/05/23 .COMPLEX #90 tabs hydrochlorothiazide 25 mg tablet See Rx Instructions .Route 01/05/23 .COMPLEX #90 tabs lisinopril 20 mg tablet 20 mg PO BID #180 tabs 01/06/23 acyclovir 400 mg tablet 400 mg PO 5XD PRN cold sores #30 03/18/23 tabs estradiol 10 mcg vaginal tablet 10 mcg vaginal DAILY #36 tabs 03/18/23 hydrocodone 5 mg-acetaminophen 325 1 tab PO Q6H PRN pain #10 tabs 05/02/23 mg tablet Allergies Allergy/AdvReac Type Severity Reaction Status Date / Time doxycycline [DOXYCYCLINE] Allergy Mild DIARRHEA Verified 12/09/22 12:08 erythromycin base Allergy Mild DIARRHEA Verified 12/09/22 12:08 [ERYTHROMYCIN BASE] adhesive Allergy Rash Verified 05/02/23 11:48 latex Allergy Rash Verified 05/02/23 11:48 Review of Systems Review of Systems ROS Unobtainable: All systems reviewed & are unremarkable except as noted in HPI and below Patient History Medical History Class 1 obesity due to excess calories with body mass index (BMI) of 34.0 to 34.9 in adult DM (diabetes mellitus), type 2 with ophthalmic complications Elevated fasting blood sugar Hyperlipidemia Left knee pain (02/20/15) Metabolic syndrome (08/25/17) Morbid obesity with body mass index (BMI) of 40.0 to 49.9 (02/20/15) Other senior care (current) drug therapy Pelvic floor dysfunction Surgical History History of tonsillectomy S/P total knee arthroplasty Status post dilation and curettage Status post hysterectomy with oophorectomy (12/12/13) Family History Father Cancer Heart disease Grandfather Hypertension Stroke Grandmother Cancer High cholesterol Stroke Mother Age: 84 Breast cancer Cervical cancer Diabetes mellitus Grandfather Liver failure Grandmother Heart disease Social History household members: spouse Smoking Status: Never smoker Smoking Status: Never smoker alcohol intake frequency: holidays/special occasions only Substance Use Type: does not use Exam Initial Vital Signs Initial Vital Signs: Vital Signs Temperature 98 F 05/02/23 11:48 Pulse Rate 61 05/02/23 11:48 Respiratory Rate 18 05/02/23 11:48 Blood Pressure 149/76 H 05/02/23 11:48 Pulse Oximetry 97 05/02/23 11:48 Oxygen Delivery Method Room Air 05/02/23 11:48 GENERAL: Alert pleasant well-appearing 68-year-old female HEENT: Head left periorbital contusion with left subconjunctival hemorrhage extraocular muscles are intact. Tenderness over superior left parietal area but no depressions crepitations mild hematoma appreciated CARDIOVASCULAR: Regular rate and rhythm without murmurs, rubs or gallops. RESPIRATORY: Breath sounds equal bilaterally, no wheezes rales or rhonchi. EXTREMITIES: Normal range of motion, no clubbing or edema. Neurovascularly intact Left shoulder no gross deformity clavicle does not have any step-off distal radial pulse intact NEUROLOGICAL: Alert and oriented x4.Normal gait and speech. Cranial nerves II through XII grossly intact. SKIN: Warm, dry, no laceration, no petechiae, no rashes or lesions. Course Orders Ordered: ED Orders 05/02/23 11:56 XR shoulder LT min 2V Stat 05/02/23 11:58 CT head/brain wo con Stat Vital Signs Vital signs: Vital Signs - 8 hr 05/02/23 11:48 05/02/23 13:51 05/02/23 14:11 Temperature 98 F Pulse Rate 61 57 L Respiratory Rate 18 Blood Pressure 149/76 H 171/70 H 152/69 H Pulse Oximetry 97 98 97 Oxygen Delivery Method Room Air Room Air Room Air MDM - Head Injury Imaging Data Extremity x-ray #1: Radiologist's Impression: PROCEDURE:? XR SHOULDER LT MIN 2V ? INDICATIONS:? fall/pain ? TECHNIQUE:? 3 views of the shoulder were acquired.? ? COMPARISON:? None. ? FINDINGS:? ? Bones:? No fractures or dislocations.? No suspicious bony lesions.? Visualized ribs appear intact.? Degenerative changes of the acromioclavicular and glenohumeral joints. ? Soft tissues:? No suspicious soft tissue calcifications.? ? IMPRESSION:? Left shoulder without acute fracture or dislocation.? 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 ? If there is persistent clinical concern for occult fracture given adequate mechanism of injury, consider repeat imaging in 10-14 days. ? ? ? Dictated by: Jarek Diaz M.D. on 05/02/2023 at 11:35 ? ? CT scan - head: Radiologist's Impression: PROCEDURE:? CT HEAD/BRAIN WO CON ? INDICATIONS:? fall/headache pain ? TECHNIQUE:? Noncontrast 4.5 mm thick angled axial sections acquired from the foramen magnum to the vertex, with coronal and sagittal reformats.? For radiation dose reduction, the following was used:? automated exposure control, adjustment of mA and/or kV according to patient size.? ? COMPARISON:? None. ? FINDINGS:? Image quality:? Excellent.? ? CSF spaces:? Basal cisterns are patent.? No extra-axial fluid collections.? Ventricles are normal in size and shape.? ? Brain:? No midline shift.? No intracranial masses or hemorrhage.? Maradiaga-white matter interface is normal.? ? Skull and face:? Left parietal scalp contusion.? Calvarium and visualized facial bones are intact, without suspicious lesions.? ? Sinuses:? Visualized sinuses and mastoids are clear.? ? IMPRESSION:? CT head without acute intracranial abnormalities. ? Left parietal scalp contusion without underlying calvarial fractures. ? ? Dictated by: Jarek Diaz M.D. on 05/02/2023 at 11:31? [facility] Narrative Medical decision making narrative: Patient 68-year-old female presenting 6 days after closed head injury. She is no signs or symptoms of intracranial hemorrhage head CT is negative. However she does have symptoms consistent with concussion. She also has significant periorbital contusion she is adamant she did not hit her I that that all showed up the following day. She is not tender no step-offs around the orbital rim no evidence of entrapment. I suspect that this is all swelling and bruising secondary to the hematoma from her head. Shoulder x-ray is also negative but does show arthritic changes. At this time supportive care. Discharge Plan Departure Patient Disposition: Home Clinical Impression: Closed head injury, Contusion of left shoulder Instructions: Concussion Activity Restrictions/Additional Instructions: *You have been diagnosed with closed head injury, contusion left shoulder *What to do: At this time increase activity as tolerated. Expect to have some headache and nausea. However if you are persistently vomiting or headache is on controlled please return to ED. Increase left shoulder movement as tolerated. Ice 20-30 minutes as needed *Continue to take medications as directed Tylenol 650 mg every 4-6 hours if needed for [id number] pain [place] 1 tablet every 6 hours if needed for severe pain *Follow up with your primary care provider in 2-3 days or call [phone] *Return to ER if you should have increased confusion numbness tingling weakness or any new, worsening or concerning symptoms CONTROLLED SUBSTANCE DISCHARGE (Narcotoic/benzodiazepine/Flexeril/Phenergan) 1. You have been prescribed narcotic medications, it does have acetaminophen/Tylenol/paracetamol in it, DO NOT TAKE MORE THAN 4,00mg in 24 hours of Tylenol. TRAMADOL DOES NOT CONTAIN TYLENOL 2. Please understand that we cannot provide further refills of narcotics, benzodiazepines or controlled substances through the ED and her pain management will need to be through your provider. 3. While on these medications you cannot drive or operate heavy machinery. 4. You cannot sign legal documents or perform any duties such as this. 5. As long as you're taking opiate pain medications he should also be taking a stool softener such as Colace, Dulcolax, MiraLAX or prune juice, to help avoid constipation. Prescriptions: New hydrocodone-acetaminophen 5-325 mg tablet 1 tab PO Q6H PRN (Reason: pain) Qty: 10 0RF No Action (DME) Blood Glucose Test Strip See Rx Instructions .ROUTE .MEDSUPPLY Qty: 200 3RF Rx Instructions: Use to check blood glucose twice daily, BRAND PER INSURANCE atorvastatin 10 mg tablet See Rx Instructions .ROUTE .COMPLEX Qty: 90 3RF Dose Instruction: TAKE 1 TABLET BY MOUTH AT BEDTIME Rx Instructions: TAKE 1 TABLET BY MOUTH AT BEDTIME hydrochlorothiazide 25 mg tablet See Rx Instructions .ROUTE .COMPLEX Qty: 90 3RF Dose Instruction: TAKE 1 TABLET(25 MG) BY MOUTH EVERY DAY FOR BLOOD PRESSURE Rx Instructions: TAKE 1 TABLET(25 MG) BY MOUTH EVERY DAY FOR BLOOD PRESSURE lisinopril 20 mg tablet 20 mg PO BID Qty: 180 3RF Rx Instructions: Take 1 tab by mouth twice per day for blood pressure, goal under 130/80 cetirizine [Zyrtec] 10 mg tablet 10 mg PO DAILY Hold Instructions: rotates antihistimine fexofenadine [Meena Allergy] 60 mg tablet 60 mg PO BID ascorbic acid (vitamin C) 500 mg capsule PO cholecalciferol (vitamin D3) 25 mcg (1,000 unit) capsule 25 mcg PO DAILY lactobacillus combination no.8 PO multivitamin Tablet 1 tab PO DAILY (DME) blood-glucose meter [facility] See Rx Instructions .ROUTE .MEDSUPPLY Qty: 1 0RF Rx Instructions: Use to check blood glucose twice daily, BRAND PER INSURANCE (DME) lancets Misc See Rx Instructions .ROUTE .MEDSUPPLY Qty: 200 3RF Rx Instructions: Use to check blood glucose twice daily, BRAND PER INSURANCE Allertec See Rx Instructions .ROUTE .COMPLEX Qty: 1 0RF Rx Instructions: Take 1 daily; Elderberry Gummies See Rx Instructions .ROUTE .COMPLEX Rx Instructions: Take 2 daily; Turmeric Chromium See Rx Instructions .ROUTE .COMPLEX Rx Instructions: Take daily; Shingrix (PF) 50 mcg/0.5 mL suspension for reconstitution 0.5 ml IM ONCE Qty: 1 0RF Rx Instructions: as a single dose Prevnar 20 (PF) 0.5 mL syringe 0.5 ml IM ONCE Qty: 0.5 0RF Rx Instructions: as a single dose tetanus-diphtheria toxoids-Td 2-2 Lf unit/0.5 mL suspension 0.5 ml IM ONCE Qty: 0.5 0RF Rx Instructions: Administer once, Td booster acyclovir 400 mg tablet 400 mg PO 5XD PRN (Reason: cold sores) Qty: 30 2RF estradiol 10 mcg tablet 10 mcg vaginal DAILY Qty: 36 3RF Rx Instructions: Insert vaginally every other day (3x/week) Referrals: Jenn Loza ARNP [Primary Care Provider] - Stand Alone Forms: Patient Portal/API
[2023-05-02 14:11] VITALS: BP 152/69; O2SAT 97
== END 2023-05-02 14:13 | disposition home or self-care (01) ==
PROVIDERS: Emergency Provider Emergency Medicine; Family Provider Nurse Practitioner; PCP Nurse Practitioner
DX: S09.90XA Unspecified injury of head, initial encounter (principal); S40.012A Contusion of left shoulder, initial encounter; W01.0XXA Fall on same level from slipping, tripping and stumbling without subsequent striking against object, initial encounter
CPT/HCPCS: 70450; 73030; 99284

== ENCOUNTER → 2023-07-13 10:46 | Outpatient (CLI) | payer MEDICARE, OTHER, SELFPAY ==
[2023-07-13 12:44] LABS: Add Manual Diff / Slide Review NO; Basophils Absolute Auto 0 /uL (0-100); Basophils Percent Auto 0.3 % (0-2); Eosinophils Absolute Auto 200 /uL (0-450); Eosinophils Percent Auto 4.2 % (2-4); Hematocrit 36.3 % (36-46); Hemoglobin 12.8 g/dL (12.0-16.0); Lymphocytes Absolute Auto 1400 /uL (1100-4500); Lymphocytes Percent Auto 25.2 % (25-40); Mean Corpuscular HGB Conc 35.1 % (30-36); Mean Corpuscular Hemoglobin 29.1 PG (26-34); Mean Corpuscular Volume 82.8 fL (80-100); Monocytes Absolute Auto 400 /uL (0-900); Neutrophils Absolute Auto 3400 /uL (1500-7000); Neutrophils Percent Auto 63.3 % (50-75); Platelet Count 264 X10^3/uL (150-400); Red Blood Cell Count 4.38 X10^6/uL (4.0-5.2); Red Cell Distribution Width 14.2 % (11.6-14.8); White Blood Cell Count 5.4 X10^3/uL (4.5-11.0)
[2023-07-13 12:49] LABS: Hemoglobin A1C% w Est Avg Glu 5.5 % (4.0-6.0)
[2023-07-13 13:15] LABS: Creatinine Urine Random 138.5 mg/dL
[2023-07-13 13:17] LABS: Alanine Aminotransferase 25 IU/L (<35); Albumin 4.5 g/dL (3.5-5.0); Albumin Globulin Ratio 1.3 (1.0-2.8); Alkaline Phosphatase 67 U/L (38-126); Aspartate Aminotransferase 26 IU/L (14-36); BUN Creatinine Ratio 20.3 (6-22); Bilirubin Total 0.5 mg/dL (0.2-1.3); Blood Urea Nitrogen 14 mg/dL (7-17); Carbon Dioxide 28 mmol/L (22-32); Chloride 99 mmol/L (98-107); Estimated Glomerular Filt Rate > 60 mL/min (>60); Globulin 3.4 g/dL (1.7-4.1); Glucose 98 mg/dL (80-110); HEMOLYSIS < 15 (0-50); Potassium 3.7 mmol/L (3.4-5.1); Sodium 136 mmol/L (137-145); Total Protein 7.9 g/dL (6.3-8.2)
[2023-07-13 13:23] LABS: Microalbumin Urine Random 0.7 mg/dL (0-1.6)
[2023-07-13 13:33] LABS: Free T3, Triiodothyronine Free 3.95 pg/mL (2.77-5.27); Free T4, Direct Thyroxine 1.03 ng/dL (0.78-2.19)
[2023-07-13 13:46] LABS: Thyroid Stimulating Hormone 1.29 uIU/mL (0.47-4.68)
== END ==
PROVIDERS: Family Provider Nurse Practitioner; PCP Nurse Practitioner; Referring Provider Nurse Practitioner; Visit Provider Nurse Practitioner
DX: E11.39 Type 2 diabetes mellitus with other diabetic ophthalmic complication (principal); E78.5 Hyperlipidemia, unspecified; I10 Essential (primary) hypertension; R73.01 Impaired fasting glucose
CPT/HCPCS: 36415; 80053; 82043; 82570; 83036; 84439; 84443; 84481; 85025

== ENCOUNTER 2023-07-20 15:00 | Outpatient (RCR) | payer MEDICARE, OTHER, SELFPAY ==
--- NOTE | 2023-05-11 17:36 | PT.OIE ---
Current Diagnoses Muscle weakness (generalized) (05/11/23) Other specified disorders of muscle (05/11/23) Urge incontinence (05/11/23) Incomplete defecation (05/11/23) Past Medical History (Last Reviewed 05/07/23 @ 10:18 by Gary Alston DO) Class 1 obesity due to excess calories with body mass index (BMI) of 34.0 to 34.9 in adult DM (diabetes mellitus), type 2 with ophthalmic complications Elevated fasting blood sugar Facial contusion Hyperlipidemia Left knee pain (02/20/15) Left shoulder strain Metabolic syndrome (08/25/17) Morbid obesity with body mass index (BMI) of 40.0 to 49.9 (02/20/15) Other salvage determiner (current) drug therapy Pelvic floor dysfunction Past Surgical History (Last Reviewed 05/07/23 @ 10:18 by Gary Alston DO) History of tonsillectomy S/P total knee arthroplasty Status post dilation and curettage Status post hysterectomy with oophorectomy (12/12/13) Visit Care Team Role Provider Type DENISHA Hills Attending Provider Advanced Property Site Manager Family Provider Primary Care Provider Referring Provider Specialty: [facility] Address: [address] [place] [address] Email: [email or web address] Physical Therapy Initial Evaluation PT-OP-A Visit Information Start: 04/17/23 20:09 Freq: Status: Active Protocol: Document 05/11/23 10:31 LRN (Rec: 05/11/23 12:18 TOM [id number]) Out-Patient Physical Therapy Visit Information Visit Information Visit Type Initial Evaluation Visit Start Time 10:31 Visit Stop Time 11:22 Total Visit Minutes 51 Visit Number 1 Evaluation Information Evaluation Date 05/11/23 Precautions Precautions Possible tape/latex allergy, Diabetes type 2, arthritis, L knee replacement 2015, D&C several since 1977. PT-OP-B Current Condition Start: 04/17/23 20:09 Freq: Status: Active Protocol: Document 05/11/23 10:31 LRN (Rec: 05/11/23 12:18 [id number]) Current Condition History of Current Condition Onset Date 12/2022 Current Complaints Urinary leakage w/urgency, trigger of seeing toilet, self asst BM History of Current Condition Pt was having pap smear and referring physician was concerned of another prolapse. States she started estrodial 12/2022 and was referred for PT. Pt is not sure what PT will do. Pt also reports has difficulty sometimes with BM and requires pressure applied to perineum to void. Prior Treatments and Tests Bladder lift with hysterectomy by Dr. Rojas ~7 yrs ago. Developmental History Developmental History Vaginal with epiziotomy with all 3 kids (1977, 1979, miscarrage between [id number], 1982) and fissure with first child. Treatment Goals Patient/Caregiver Goals Pt goal is: Decrease symptoms of urinary urge leakage with urgency, and decrease need for self assist with BM (pressure applied to perineum) to void. Independent HEP. Personal Factors Other Personal Factors That May Effect Bladder lift with hysterectomy Therapy/Recovery 7 yrs ago, D& C several since 1977, arthritis. PT-OP-C Subjective Start: 04/17/23 20:09 Freq: Status: Active Protocol: Document 05/11/23 10:31 LRN (Rec: 05/11/23 12:18 LRN [id number]) Patient Questionnaires Pelvic Pain and Urgency/Frequency Patient Symptom Scale Pelvic Pain Score 5 PT-OP-I Pelvic Floor Start: 04/17/23 20:09 Freq: Status: Active Protocol: Document 05/11/23 10:31 LRN (Rec: 05/11/23 12:18 LRN [id number]) Pelvic Floor Assessment Urine Urinary Symptoms Urge Sensation Leakage Size Small Leakage Cause Urge Leaks Per Day Once every couple weeks not able to make it to bathroom Voiding Frequency 3-4 hrs, sometimes 1-2x/day, sometimes 3x. Nocturia 1 Pads Used In 24 Hours 0 Bowel Bowel Surgery No Bowel Symptoms Constipation,Uncontrolled Flatulence Other Bowel Symptoms Frequency 5-6x/day or sometimes not. Bowel Movement Frequency 1-4 Lorimor Stool Chart Comments Type 3-4 Prolapse Cystocele Grade 2 Rectocele Grade 2 Contraction Ability Voluntary Contraction Moderate Manual Muscle Testing Left 1 Manual Muscle Testing Right 2 Manual Muscle Testing Anterior 2 Manual Muscle Testing Posterior 3 Muscle Endurance (Seconds) 3 Number of Quick Contractions In 10 9 Seconds Comments Pelvic Floor Comments Pt uses substitute ms of abdominals, gluteals and hip AD's to assist with PF contractions. PT-OP-J Posture/Palpation/Skin Start: 04/17/23 20:09 Freq: Status: Active Protocol: Document 05/11/23 10:31 LRN (Rec: 05/11/23 12:18 LRN [id number]) Posture Evaluation Position Standing Head/C-Spine Posture Forward Head T-Spine Posture Increased Kyphosis L-Spine Posture Increased Lordosis Shoulder Posture (L) Rounded,(R) Rounded,(L) Forward,(R) Forward,(L) Elevated Arm Posture (L) Internally Rotated,(R) Internally Rotated Pelvis Posture Anteriorly Tilted Weight Distribution Weight Shifted Right Comments Posture Comments C-curve of spine with apex T6- T7 PT-OP-K Range of Motion Start: 04/17/23 20:09 Freq: Status: Active Protocol: Document 05/11/23 10:31 LRN (Rec: 05/11/23 12:18 LRN [id number]) Lumbar Spine Range of Motion Lumbar Spine Active Degrees Testing Position Standing Flexion 90 Extension 15 Rotation Left 30 Rotation Right 35 Lateral Flexion Left 18 Lateral Flexion Right 15 ROM Limitations Soft Tissue Tightness Comments Trunk AROM: Flexion is 90 deg ?s with 68 deg?s hip flexion, Trunk extension is 15 deg?s with 13 deg?s hip extension. Hip Goniometric Range of Motion Hip Right Passive Testing Position Supine Internal Rotation 20 External Rotation 50 Left Passive Testing Position Supine Internal Rotation 25 External Rotation 40 PT-OP-M Strength Start: 04/17/23 20:09 Freq: Status: Active Protocol: Document 05/11/23 10:31 LRN (Rec: 05/11/23 12:18 LRN [id number]) Trunk Strength Trunk Manual Muscle Testing Core Stabilization Core weakness as noted with loss of stabilization with MMT of LE's (weakness with rotation, TA). Hip Strength Hip Manual Muscle Testing Right Flexion (L2) 4 Good Extension (S1) 3 Fair Adduction 1 Trace Comments Generally 5/5 except as indicated above. Pt breathholds with MMT and positional changes. Left Flexion (L2) 4 Good Extension (S1) 3 Fair External Rotation 3+ Fair+ Comments Generally 5/5 except as indicated above. Pt breathholds with MMT and positional changes. PT-OP-Q Treatments Start: 04/17/23 20:09 Freq: Status: Active Protocol: Document 05/11/23 10:31 LRN (Rec: 05/11/23 12:18 LRN [id number]) Self-Care/Home Management Treatment Education Patient Education Home Exercise Program Other Education Discussed results of evaluation, goals, and plan of care (POC). Pt agreeable to goals and POC. Pt educated in use of Bladder Diary and I/S in tracking for 1 week. Discussed use of bladder/food diary for tracking of bladder and bowel. Activities Self-Care/Home Management Activities Issued & reviewed HEP: Kegel ex's and discussed exercise of Quick Flicks, Long Holds and Aggravators. PT-OP-T Assessment and Plan Start: 04/17/23 20:09 Freq: Status: Active Protocol: Document 05/11/23 10:31 LRN (Rec: 05/11/23 12:18 [facility] [id number]) Physical Therapy Assessment Rehab Potential Rehabilitation Potential Good Evaluation Complexity Number of Personal Factors/Comorbidities 1-2 Number of Body Systems Impaired 4 or More Clinical Presentation at Evaluation Evolving Impairments Impairments Posture,ROM,Soft Tissue Mobility,Strength,Transfers Goals Three Impairment Self assist sometimes needed to have a bowel movement Short Term Goal (STG) Pt education in Bowel massage and bowel management program. STG Duration 7 weeks (06/16/23) Retirement Goal (LTG) Decrease need for self assist with BM (pressure applied to perineum) to void. LTG Duration 12 weeks (08/09/23) Two Impairment Urinary urge incontinence Short Term Goal (STG) Pt education in urge deference technique and fluid recommendations (amt & type). STG Duration 2 weeks (05/19/23) Recovery Auditor Goal (LTG) Improve PF strength to decrease symptoms of urinary leakage with a strong urge LTG Duration 12 weeks (08/09/23) One Impairment Lacks appropriate self care HEP Short Term Goal (STG) Pt educated in proper transfers to lessen core abdominal pressure. STG Duration 3 weeks (05/29/23) Retirement Goal (LTG) Pt will be independent in a self care HEP for PF strengthening. LTG Duration 12 weeks (08/09/23) Assessment Summary Assessment Pt is a 68 yo female who presents with urge incontinence and difficulty with bowel movements sometimes requiring manual assist with pressure on perineum to voiding (rectocele ). Grade 2 cystocele and rectocele. She is using self assist sometimes to have bowel movement; therefore the pt may need further medical assessment if she is not able to improve with physical therapy. She demonstrates substitution of abdominal, gluteal and hip muscles to perform a PF contraction with minimal contraction of the anterior PF noted (no visible clitoral nod, but obvious anal wing present). She tends to hold her breath with PF contractions. She appears to have soft tissue, postural and mechanical changes that contribute to her PF weakness. The pt will benefit from skilled physical therapy to address the previously stated dysfunctions and to promote changes to achieve the above stated goals. Physical Therapy Plan Frequency and Duration Frequency of Treatment 1x/Week Duration of treatment (weeks) 12 Plan of Care Start Date 05/11/23 Plan of Care End Date 08/09/23 Therapeutic Interventions Therapeutic Interventions Home Exercise Program,Joint Mobilizations,Manual Therapy, Neuromuscular Re-education, Self-Care/Home Management,Soft Tissue Mobilization, Therapeutic Activities, Therapeutic Exercises Modalities Biofeedback,Electric Stimulation,Hot Packs Next Visit Focus/Plan Next Note Type Treatment Note Next Visit Plan Assess bladder diary and bowel involvement with recommendations as appropriate . Education: Urge deference technique and fluid recommendations (amt & type), Bowel massage and bowel management program, PF contractions in isolation of substitute muscles, Coordination of proper breaths with ADLs, transfers, body mechanics and exercise. Ex's: Hip stretch (Maciej. ER/IR, IR>ER) Core strengthening (rotation, TA). Weak Hip Maciej flex, ext , & R AD. POC: PF strengthening, BM care, pt education, core strengthening, hip stretches.
--- NOTE | 2023-05-11 17:36 | PT.OPPOC ---
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 Family Provider Primary Care Provider Referring Provider Specialty: Family Practice Address: [address] [place] [address], [id number] Email: [email or web address] Plan Of Care PT-OP-T Assessment and Plan Start: 04/17/23 20:09 Freq: Status: Active Protocol: Document 05/11/23 10:31 LRN (Rec: 05/11/23 12:18 LRN [id number]) Physical Therapy Assessment Rehab Potential Rehabilitation Potential Good Evaluation Complexity Number of Personal Factors/Comorbidities 1-2 Number of Body Systems Impaired 4 or More Clinical Presentation at Evaluation Evolving Impairments Impairments Posture,ROM,Soft Tissue Mobility,Strength,Transfers Goals Three Impairment Self assist sometimes needed to have a bowel movement Short Term Goal (STG) Pt education in Bowel massage and bowel management program. STG Duration 7 weeks (06/16/23) Correction Goal (LTG) Decrease need for self assist with BM (pressure applied to perineum) to void. LTG Duration 12 weeks (08/09/23) Two Impairment Urinary urge incontinence Short Term Goal (STG) Pt education in urge deference technique and fluid recommendations (amt & type). STG Duration 2 weeks (05/19/23) Dinkey Brakeman Goal (LTG) Improve PF strength to decrease symptoms of urinary leakage with a strong urge LTG Duration 12 weeks (08/09/23) One Impairment Lacks appropriate self care HEP Short Term Goal (STG) Pt educated in proper transfers to lessen core abdominal pressure. STG Duration 3 weeks (05/29/23) Dinkey Brakeman Goal (LTG) Pt will be independent in a self care HEP for PF strengthening. LTG Duration 12 weeks (08/09/23) Assessment Summary Assessment Pt is a 68 yo female who presents with urge incontinence and difficulty with bowel movements sometimes requiring manual assist with pressure on perineum to voiding (rectocele ). Grade 2 cystocele and rectocele. She is using self assist sometimes to have bowel movement; therefore the pt may need further medical assessment if she is not able to improve with physical therapy. She demonstrates substitution of abdominal, gluteal and hip muscles to perform a PF contraction with minimal contraction of the anterior PF noted (no visible clitoral nod, but obvious anal wing present). She tends to hold her breath with PF contractions. She appears to have soft tissue, postural and mechanical changes that contribute to her PF weakness. The pt will benefit from skilled physical therapy to address the previously stated dysfunctions and to promote changes to achieve the above stated goals. Physical Therapy Plan Frequency and Duration Frequency of Treatment 1x/Week Duration of treatment (weeks) 12 Plan of Care Start Date 05/11/23 Plan of Care End Date 08/09/23 Therapeutic Interventions Therapeutic Interventions Home Exercise Program,Joint Mobilizations,Manual Therapy, Neuromuscular Re-education, Self-Care/Home Management,Soft Tissue Mobilization, Therapeutic Activities, Therapeutic Exercises Modalities Biofeedback,Electric Stimulation,Hot Packs Next Visit Focus/Plan Next Note Type Treatment Note Next Visit Plan Assess bladder diary and bowel involvement with recommendations as appropriate . Education: Urge deference technique and fluid recommendations (amt & type), Bowel massage and bowel management program, PF contractions in isolation of substitute muscles, Coordination of proper breaths with ADLs, transfers, body mechanics and exercise. Ex's: Hip stretch (Maciej. ER/IR, IR>ER) Core strengthening (rotation, TA). Weak Hip Maciej flex, ext , & R AD. POC: PF strengthening, BM care, pt education, core strengthening, hip stretches. Plan of Care Dates Plan of Care Start Date 05/11/23 Plan of Care End Date 08/09/23 Electronically Signed by: Cammie Lomas, PT 05/12/23 0362 If you are in agreement with this Plan of Care, please return a signed and dated copy. I have reviewed this Plan of Care and certify that the skilled therapy services above are required to meet the patient?s needs. Physician Signature Date Printed Name and Credentials Clinical Instructor Signature Printed Name and Credentials
--- NOTE | 2023-06-01 13:24 | PT.OTN ---
Current Diagnoses Muscle weakness (generalized) (06/01/23) Other specified disorders of muscle (06/01/23) Urge incontinence (06/01/23) Incomplete defecation (06/01/23) Physical Therapy Treatment Note PT-OP-A Visit Information Start: 04/17/23 20:09 Freq: Status: Active Protocol: Document 06/01/23 08:49 LRN (Rec: 06/01/23 09:35 LRN [id number]) Out-Patient Physical Therapy Visit Information Visit Information Visit Type Treatment Note Visit Note Pt 4 min late Visit Start Time 08:49 Visit Stop Time 09:27 Total Visit Minutes 38 Visit Number 2 Evaluation Information Evaluation Date 05/11/23 Precautions Precautions Possible tape/latex allergy, Diabetes type 2, arthritis, L knee replacement 2015, D&C several since 1977. PT-OP-B Current Condition Start: 04/17/23 20:09 Freq: Status: Active Protocol: Document 05/11/23 10:31 LRN (Rec: 05/11/23 12:18 LRN [id number]) Current Condition History of Current Condition Onset Date 12/2022 Current Complaints Urinary leakage w/urgency, trigger of seeing toilet, self asst BM History of Current Condition Pt was having pap smear and referring physician was concerned of another prolapse. States she started estrodial 12/2022 and was referred for PT. Pt is not sure what PT will do. Pt also reports has difficulty sometimes with BM and requires pressure applied to perineum to void. Prior Treatments and Tests Bladder lift with hysterectomy by Dr. Rojas ~7 yrs ago. Developmental History Developmental History Vaginal with epiziotomy with all 3 kids (1977, 1979, miscarrage between [id number], 1982) and fissure with first child. Treatment Goals Patient/Caregiver Goals Pt goal is: Decrease symptoms of urinary urge leakage with urgency, and decrease need for self assist with BM (pressure applied to perineum) to void. Independent HEP. Personal Factors Other Personal Factors That May Effect Bladder lift with hysterectomy Therapy/Recovery 7 yrs ago, D& C several since 1977, arthritis. PT-OP-C Subjective Start: 04/17/23 20:09 Freq: Status: Active Protocol: Document 06/01/23 08:49 LRN (Rec: 06/01/23 12:57 LRN [id number]) OP-PT Subjective Patient Comments Patient Comments Did bladder diary but was not as consistent with Kegel ex's because of family events. PT-OP-I Pelvic Floor Start: 04/17/23 20:09 Freq: Status: Active Protocol: Document 05/11/23 10:31 LRN (Rec: 05/11/23 12:18 LRN [id number]) Pelvic Floor Assessment Urine Urinary Symptoms Urge Sensation Leakage Size Small Leakage Cause Urge Leaks Per Day Once every couple weeks not able to make it to bathroom Voiding Frequency 3-4 hrs, sometimes 1-2x/day, sometimes 3x. Nocturia 1 Pads Used In 24 Hours 0 Bowel Bowel Surgery No Bowel Symptoms Constipation,Uncontrolled Flatulence Other Bowel Symptoms Frequency 5-6x/day or sometimes not. Bowel Movement Frequency 1-4 [place] Stool Chart Comments Type 3-4 Prolapse Cystocele Grade 2 Rectocele Grade 2 Contraction Ability Voluntary Contraction Moderate Manual Muscle Testing Left 1 Manual Muscle Testing Right 2 Manual Muscle Testing Anterior 2 Manual Muscle Testing Posterior 3 Muscle Endurance (Seconds) 3 Number of Quick Contractions In 10 9 Seconds Comments Pelvic Floor Comments Pt uses substitute ms of abdominals, gluteals and hip AD's to assist with PF contractions. PT-OP-J Posture/Palpation/Skin Start: 04/17/23 20:09 Freq: Status: Active Protocol: Document 05/11/23 10:31 LRN (Rec: 05/11/23 12:18 LRN [id number]) Posture Evaluation Position Standing Head/C-Spine Posture Forward Head T-Spine Posture Increased Kyphosis L-Spine Posture Increased Lordosis Shoulder Posture (L) Rounded,(R) Rounded,(L) Forward,(R) Forward,(L) Elevated Arm Posture (L) Internally Rotated,(R) Internally Rotated Pelvis Posture Anteriorly Tilted Weight Distribution Weight Shifted Right Comments Posture Comments C-curve of spine with apex T6- T7 PT-OP-K Range of Motion Start: 04/17/23 20:09 Freq: Status: Active Protocol: Document 05/11/23 10:31 LRN (Rec: 05/11/23 12:18 LRN [id number]) Lumbar Spine Range of Motion Lumbar Spine Active Degrees Testing Position Standing Flexion 90 Extension 15 Rotation Left 30 Rotation Right 35 Lateral Flexion Left 18 Lateral Flexion Right 15 ROM Limitations Soft Tissue Tightness Comments Trunk AROM: Flexion is 90 deg ?s with 68 deg?s hip flexion, Trunk extension is 15 deg?s with 13 deg?s hip extension. Hip Goniometric Range of Motion Hip Right Passive Testing Position Supine Internal Rotation 20 External Rotation 50 Left Passive Testing Position Supine Internal Rotation 25 External Rotation 40 PT-OP-M Strength Start: 04/17/23 20:09 Freq: Status: Active Protocol: Document 05/11/23 10:31 LRN (Rec: 05/11/23 12:18 LRN [id number]) Trunk Strength Trunk Manual Muscle Testing Core Stabilization Core weakness as noted with loss of stabilization with MMT of LE's (weakness with rotation, TA). Hip Strength Hip Manual Muscle Testing Right Flexion (L2) 4 Good Extension (S1) 3 Fair Adduction 1 Trace Comments Generally 5/5 except as indicated above. Pt breathholds with MMT and positional changes. Left Flexion (L2) 4 Good Extension (S1) 3 Fair External Rotation 3+ Fair+ Comments Generally 5/5 except as indicated above. Pt breathholds with MMT and positional changes. PT-OP-Q Treatments Start: 04/17/23 20:09 Freq: Status: Active Protocol: Document 06/01/23 08:49 LRN (Rec: 06/01/23 09:35 LRN [id number]) Therapeutic Exercises Supine Exercises Bowel massage Supine Exercise Name Bowel massage training Reps/Minutes 7' Comments Cuing palmar surface circular motions and speed/breath Sitting Exercises Deep Breathing Sitting Exercise Name Deep Breathing Training Reps/Minutes 5' Comments V & self phy cuing w/hands on chest/abdomen for abdominal mvmt Self-Care/Home Management Treatment Education Patient Education Home Exercise Program Other Education Reviewed Bladder dairy and discussed at length, fluid intake (AM/PM), bowel movement frequency, bowel types, bowel /bladder changes with different fluid types and her medications, and discussed modifications to having BM without forcing and improving speed of voiding with use of squatty potty and deep breathing. Pt educated with use of handout picture, internal abdominal anatomy of PF muscles, internal organ positioning, and explaining cystocele and rectocele and discussed how this can worsen with decreased bowel mobility and breath holding. Activities Self-Care/Home Management Activities Issued & reviewed self care HEP: Deep breathing and Bowel (ILU) massage. PT-OP-T Assessment and Plan Start: 04/17/23 20:09 Freq: Status: Active Protocol: Document 06/01/23 08:49 LRN (Rec: 08/21/23 09:35 LRN [id number]) Physical Therapy Assessment Goals Three Impairment Self assist sometimes needed to have a bowel movement Short Term Goal (STG) Pt education in Bowel massage and bowel management program. STG Duration 7 weeks (06/16/23) progressed 06/01/23 (educ needed for bowel mgmt prog) Penitentiary Goal (LTG) Decrease need for self assist with BM (pressure applied to perineum) to void. LTG Duration 12 weeks (08/09/23) Two Impairment Urinary urge incontinence Short Term Goal (STG) Pt education in urge deference technique and fluid recommendations (amt & type). STG Duration 2 weeks (05/19/23) Registry Nurse Goal (LTG) Improve PF strength to decrease symptoms of urinary leakage with a strong urge LTG Duration 12 weeks (08/09/23) One Impairment Lacks appropriate self care HEP Short Term Goal (STG) Pt educated in proper transfers to lessen core abdominal pressure. STG Duration 3 weeks (05/29/23) Registry Nurse Goal (LTG) Pt will be independent in a self care HEP for PF strengthening. LTG Duration 12 weeks (08/09/23) Assessment Summary Assessment Pt with urge incontinence and difficulty with BMs, sometimes requiring manual assist ( pressure on perineum) to void. Pt w/grade 2 cystocele and rectocele. Pt appears to be rushing to have a BM and forces void or incompetely defecates; therefore creating a strong urge to have a BM. Use of diuretic through the day appears to have decreased pt's need to urinary void after intaking in caffeine. Pt to needs to learn to void more easily to avoid worsening of cystocele and to deep breathe properly. Pt is very open to education. Physical Therapy Plan Frequency and Duration Frequency of Treatment 1x/Week Duration of treatment (weeks) 12 Plan of Care Start Date 05/11/23 Plan of Care End Date 08/09/23 Next Visit Focus/Plan Next Note Type Treatment Note Next Visit Plan Educ in bowel management program, Educ pt in Bowel movements without holding breath and issue handout for squatty potty. Education: Urge deference technique and fluid recommendations (amt & type), PF contractions in isolation of substitute muscles, Coordination of proper breaths with ADLs, transfers, body mechanics and exercise. Ex's: Hip stretch (Maciej. ER/IR, IR>ER) Core strengthening (rotation, TA). Weak Hip Maciej flex, ext , & R AD. POC: PF strengthening, BM care, pt education, core strengthening, hip stretches.
--- NOTE | 2023-06-08 12:49 | PT-OP ANOTE ---
Pt DNS. Pt called, message left to notify pt of missed appt and notified of next appt 06/22/23 @ 12:30.
--- NOTE | 2023-06-09 08:46 | PT.OTN ---
Current Diagnoses Muscle weakness (generalized) (06/09/23) Other specified disorders of muscle (06/09/23) Urge incontinence (06/09/23) Incomplete defecation (06/09/23) Physical Therapy Treatment Note PT-OP-A Visit Information Start: 04/17/23 20:09 Freq: Status: Active Protocol: Document 06/09/23 08:00 LRN (Rec: 06/09/23 08:46 LRN [id number]) Out-Patient Physical Therapy Visit Information Visit Information Visit Type Treatment Note Visit Start Time 08:00 Visit Stop Time 08:38 Total Visit Minutes 38 Visit Number 3 Evaluation Information Evaluation Date 05/11/23 Precautions Precautions Possible tape/latex allergy, Diabetes type 2, arthritis, L knee replacement 2015, D&C several since 1977. PT-OP-B Current Condition Start: 04/17/23 20:09 Freq: Status: Active Protocol: Document 05/11/23 10:31 LRN (Rec: 05/11/23 12:18 LRN [id number]) Current Condition History of Current Condition Onset Date 12/2022 Current Complaints Urinary leakage w/urgency, trigger of seeing toilet, self asst BM History of Current Condition Pt was having pap smear and referring physician was concerned of another prolapse. States she started estrodial 12/2022 and was referred for PT. Pt is not sure what PT will do. Pt also reports has difficulty sometimes with BM and requires pressure applied to perineum to void. Prior Treatments and Tests Bladder lift with hysterectomy by Dr. Rojas ~7 yrs ago. Developmental History Developmental History Vaginal with epiziotomy with all 3 kids (1977, 1979, miscarrage between [id number], 1982) and fissure with first child. Treatment Goals Patient/Caregiver Goals Pt goal is: Decrease symptoms of urinary urge leakage with urgency, and decrease need for self assist with BM (pressure applied to perineum) to void. Independent HEP. Personal Factors Other Personal Factors That May Effect Bladder lift with hysterectomy Therapy/Recovery 7 yrs ago, D& C several since 1977, arthritis. PT-OP-C Subjective Start: 04/17/23 20:09 Freq: Status: Active Protocol: Document 06/09/23 08:00 LRN (Rec: 06/09/23 08:46 LRN [id number]) OP-PT Subjective Patient Comments Patient Comments Has been going ok, so tried BM massage one time. PT-OP-I Pelvic Floor Start: 04/17/23 20:09 Freq: Status: Active Protocol: Document 05/11/23 10:31 LRN (Rec: 05/11/23 12:18 LRN [id number]) Pelvic Floor Assessment Urine Urinary Symptoms Urge Sensation Leakage Size Small Leakage Cause Urge Leaks Per Day Once every couple weeks not able to make it to bathroom Voiding Frequency 3-4 hrs, sometimes 1-2x/day, sometimes 3x. Nocturia 1 Pads Used In 24 Hours 0 Bowel Bowel Surgery No Bowel Symptoms Constipation,Uncontrolled Flatulence Other Bowel Symptoms Frequency 5-6x/day or sometimes not. Bowel Movement Frequency 1-4 [place] Stool Chart Comments Type 3-4 Prolapse Cystocele Grade 2 Rectocele Grade 2 Contraction Ability Voluntary Contraction Moderate Manual Muscle Testing Left 1 Manual Muscle Testing Right 2 Manual Muscle Testing Anterior 2 Manual Muscle Testing Posterior 3 Muscle Endurance (Seconds) 3 Number of Quick Contractions In 10 9 Seconds Comments Pelvic Floor Comments Pt uses substitute ms of abdominals, gluteals and hip AD's to assist with PF contractions. PT-OP-J Posture/Palpation/Skin Start: 04/17/23 20:09 Freq: Status: Active Protocol: Document 05/11/23 10:31 LRN (Rec: 05/11/23 12:18 LRN [id number]) Posture Evaluation Position Standing Head/C-Spine Posture Forward Head T-Spine Posture Increased Kyphosis L-Spine Posture Increased Lordosis Shoulder Posture (L) Rounded,(R) Rounded,(L) Forward,(R) Forward,(L) Elevated Arm Posture (L) Internally Rotated,(R) Internally Rotated Pelvis Posture Anteriorly Tilted Weight Distribution Weight Shifted Right Comments Posture Comments C-curve of spine with apex T6- T7 PT-OP-K Range of Motion Start: 04/17/23 20:09 Freq: Status: Active Protocol: Document 05/11/23 10:31 LRN (Rec: 05/11/23 12:18 LRN [id number]) Lumbar Spine Range of Motion Lumbar Spine Active Degrees Testing Position Standing Flexion 90 Extension 15 Rotation Left 30 Rotation Right 35 Lateral Flexion Left 18 Lateral Flexion Right 15 ROM Limitations Soft Tissue Tightness Comments Trunk AROM: Flexion is 90 deg ?s with 68 deg?s hip flexion, Trunk extension is 15 deg?s with 13 deg?s hip extension. Hip Goniometric Range of Motion Hip Right Passive Testing Position Supine Internal Rotation 20 External Rotation 50 Left Passive Testing Position Supine Internal Rotation 25 External Rotation 40 PT-OP-M Strength Start: 04/17/23 20:09 Freq: Status: Active Protocol: Document 05/11/23 10:31 LRN (Rec: 05/11/23 12:18 LRN [id number]) Trunk Strength Trunk Manual Muscle Testing Core Stabilization Core weakness as noted with loss of stabilization with MMT of LE's (weakness with rotation, TA). Hip Strength Hip Manual Muscle Testing Right Flexion (L2) 4 Good Extension (S1) 3 Fair Adduction 1 Trace Comments Generally 5/5 except as indicated above. Pt breathholds with MMT and positional changes. Left Flexion (L2) 4 Good Extension (S1) 3 Fair External Rotation 3+ Fair+ Comments Generally 5/5 except as indicated above. Pt breathholds with MMT and positional changes. PT-OP-Q Treatments Start: 04/17/23 20:09 Freq: Status: Active Protocol: Document 06/09/23 08:00 LRN (Rec: 06/09/23 08:46 LRN [id number]) Therapeutic Exercises Supine Exercises Kegel Supine Exercise Name Kegel quick & long hold Equipment Used wedge Reps/Minutes 6' Deep Breathing Supine Exercise Name Deep Breathing training Reps/Minutes 8' Comments Much v/phy cuing needed and given small straw Bowel massage Supine Exercise Name Bowel massage training Reps/Minutes 10' Comments Cuing palmar surface circular motions and speed/breath Self-Care/Home Management Treatment Education Other Education Educated pt on Fluid management w/discussion of avg of 1/2 body wgt in oz's and other needs if drinking caffeine drinks. Activities Self-Care/Home Management Activities Isued & reviewed HEP: Urge deference technique and reissued Deep breathing and ILU massage handouts with review. PT-OP-T Assessment and Plan Start: 04/17/23 20:09 Freq: Status: Active Protocol: Document 06/09/23 08:00 LRN (Rec: 06/09/23 08:46 LRN [id number]) Physical Therapy Assessment Goals Three Impairment Self assist sometimes needed to have a bowel movement Short Term Goal (STG) Pt education in Bowel massage and bowel management program. 06/01/23: Pt educated in BM massage and reissued 06/09/23. STG Duration 7 weeks (06/16/23) progressed 06/09/23 (educ needed for bowel mgmt prog) Desktop Support Manager Goal (LTG) Decrease need for self assist with BM (pressure applied to perineum) to void. LTG Duration 12 weeks (08/09/23) Two Impairment Urinary urge incontinence Short Term Goal (STG) Pt education in urge deference technique and fluid recommendations (amt & type). STG Duration 2 weeks (05/19/23) (: MET GOAL) Intermediate Goal (LTG) Improve PF strength to decrease symptoms of urinary leakage with a strong urge LTG Duration 12 weeks (08/09/23) One Impairment Lacks appropriate self care HEP Short Term Goal (STG) Pt educated in proper transfers to lessen core abdominal pressure. STG Duration 3 weeks (05/29/23) Desktop Support Manager Goal (LTG) Pt will be independent in a self care HEP for PF strengthening. 06/09/23: HEP: Kegel quick and long holds w/pillow under hips. LTG Duration 12 weeks (08/09/23) progressed 06/09/23 Progress Towards Goals Progress Comments STG #2 MET. HEP progressed. Assessment Summary Assessment Pt with urge incontinence and difficulty with bowel movements sometimes requiring manual assist with pressure on perineum to voiding ( rectocele). Grade 2 cystocele and rectocele. Pt able to perform a deep breath over 6 sec in/out breath only after training with much cuing and use of a small straw. Pt still has trouble with abdominal breathing and automatically goes into chest breathe. Physical Therapy Plan Frequency and Duration Frequency of Treatment 1x/Week Duration of treatment (weeks) 12 Plan of Care Start Date 05/11/23 Plan of Care End Date 08/09/23 Next Visit Focus/Plan Next Note Type Treatment Note Next Visit Plan Educ in bowel management program, and proper transfers to lessen core abdominal pressure (coordinate proper breaths with ADLs, transfers, body mechanics and exercise) Educ pt in Bowel movements without holding breath and issue handout for squatty potty. PF contractions in isolation of substitute muscles, Ex's: Hip stretch (Maciej. ER/IR, IR>ER) Core strengthening (rotation, TA). Weak Hip Maciej flex, ext , & R AD. POC: PF strengthening, BM care, pt education, core strengthening, hip stretches.
--- NOTE | 2023-06-22 13:46 | PT.OTN ---
Current Diagnoses Muscle weakness (generalized) (06/22/23) Other specified disorders of muscle (06/22/23) Urge incontinence (06/22/23) Incomplete defecation (06/22/23) Physical Therapy Treatment Note PT-OP-A Visit Information Start: 04/17/23 20:09 Freq: Status: Active Protocol: Document 06/22/23 12:35 LRN (Rec: 06/22/23 13:46 LRN [id number]) Out-Patient Physical Therapy Visit Information Visit Information Visit Type Treatment Note Visit Start Time 12:35 Visit Stop Time 13:24 Total Visit Minutes 49 Visit Number 4 Evaluation Information Evaluation Date 05/11/23 Precautions Precautions Possible tape/latex allergy, Diabetes type 2, arthritis, L knee replacement 2015, D&C several since 1977. PT-OP-B Current Condition Start: 04/17/23 20:09 Freq: Status: Active Protocol: Document 05/11/23 10:31 LRN (Rec: 05/11/23 12:18 LRN [id number]) Current Condition History of Current Condition Onset Date 12/2022 Current Complaints Urinary leakage w/urgency, trigger of seeing toilet, self asst BM History of Current Condition Pt was having pap smear and referring physician was concerned of another prolapse. States she started estrodial 12/2022 and was referred for PT. Pt is not sure what PT will do. Pt also reports has difficulty sometimes with BM and requires pressure applied to perineum to void. Prior Treatments and Tests Bladder lift with hysterectomy by Dr. Rojas ~7 yrs ago. Developmental History Developmental History Vaginal with epiziotomy with all 3 kids (1977, 1979, miscarrage between [id number], 1982) and fissure with first child. Treatment Goals Patient/Caregiver Goals Pt goal is: Decrease symptoms of urinary urge leakage with urgency, and decrease need for self assist with BM (pressure applied to perineum) to void. Independent HEP. Personal Factors Other Personal Factors That May Effect Bladder lift with hysterectomy Therapy/Recovery 7 yrs ago, D& C several since 1977, arthritis. PT-OP-C Subjective Start: 04/17/23 20:09 Freq: Status: Active Protocol: Document 06/22/23 12:35 LRN (Rec: 06/22/23 13:46 LRN [id number]) OP-PT Subjective Patient Comments Patient Comments BM daily, occasionally needs manual assist but not as often . PT-OP-I Pelvic Floor Start: 04/17/23 20:09 Freq: Status: Active Protocol: Document 05/11/23 10:31 LRN (Rec: 05/11/23 12:18 LRN [id number]) Pelvic Floor Assessment Urine Urinary Symptoms Urge Sensation Leakage Size Small Leakage Cause Urge Leaks Per Day Once every couple weeks not able to make it to bathroom Voiding Frequency 3-4 hrs, sometimes 1-2x/day, sometimes 3x. Nocturia 1 Pads Used In 24 Hours 0 Bowel Bowel Surgery No Bowel Symptoms Constipation,Uncontrolled Flatulence Other Bowel Symptoms Frequency 5-6x/day or sometimes not. Bowel Movement Frequency 1-4 [place] Stool Chart Comments Type 3-4 Prolapse Cystocele Grade 2 Rectocele Grade 2 Contraction Ability Voluntary Contraction Moderate Manual Muscle Testing Left 1 Manual Muscle Testing Right 2 Manual Muscle Testing Anterior 2 Manual Muscle Testing Posterior 3 Muscle Endurance (Seconds) 3 Number of Quick Contractions In 10 9 Seconds Comments Pelvic Floor Comments Pt uses substitute ms of abdominals, gluteals and hip AD's to assist with PF contractions. PT-OP-J Posture/Palpation/Skin Start: 04/17/23 20:09 Freq: Status: Active Protocol: Document 05/11/23 10:31 LRN (Rec: 05/11/23 12:18 LRN [id number]) Posture Evaluation Position Standing Head/C-Spine Posture Forward Head T-Spine Posture Increased Kyphosis L-Spine Posture Increased Lordosis Shoulder Posture (L) Rounded,(R) Rounded,(L) Forward,(R) Forward,(L) Elevated Arm Posture (L) Internally Rotated,(R) Internally Rotated Pelvis Posture Anteriorly Tilted Weight Distribution Weight Shifted Right Comments Posture Comments C-curve of spine with apex T6- T7 PT-OP-K Range of Motion Start: 04/17/23 20:09 Freq: Status: Active Protocol: Document 05/11/23 10:31 LRN (Rec: 05/11/23 12:18 LRN [id number]) Lumbar Spine Range of Motion Lumbar Spine Active Degrees Testing Position Standing Flexion 90 Extension 15 Rotation Left 30 Rotation Right 35 Lateral Flexion Left 18 Lateral Flexion Right 15 ROM Limitations Soft Tissue Tightness Comments Trunk AROM: Flexion is 90 deg ?s with 68 deg?s hip flexion, Trunk extension is 15 deg?s with 13 deg?s hip extension. Hip Goniometric Range of Motion Hip Right Passive Testing Position Supine Internal Rotation 20 External Rotation 50 Left Passive Testing Position Supine Internal Rotation 25 External Rotation 40 PT-OP-M Strength Start: 04/17/23 20:09 Freq: Status: Active Protocol: Document 05/11/23 10:31 LRN (Rec: 05/11/23 12:18 LRN [id number]) Trunk Strength Trunk Manual Muscle Testing Core Stabilization Core weakness as noted with loss of stabilization with MMT of LE's (weakness with rotation, TA). Hip Strength Hip Manual Muscle Testing Right Flexion (L2) 4 Good Extension (S1) 3 Fair Adduction 1 Trace Comments Generally 5/5 except as indicated above. Pt breathholds with MMT and positional changes. Left Flexion (L2) 4 Good Extension (S1) 3 Fair External Rotation 3+ Fair+ Comments Generally 5/5 except as indicated above. Pt breathholds with MMT and positional changes. PT-OP-Q Treatments Start: 04/17/23 20:09 Freq: Status: Active Protocol: Document 06/22/23 12:35 LRN (Rec: 06/22/23 13:46 LRN [id number]) Therapeutic Exercises Supine Exercises PF/BKFO/breath Supine Exercise Name PF/BKFO/breath Equipment Used Lev2 TB Reps/Minutes 6' Comments Much cuing needed for holding PF contraction with mvmt PF/Bridge/breath Supine Exercise Name PF/Bridge/breath Resistance Many times rest due to hamstring cramping Equipment Used wedge & without wedge Reps/Minutes 11' Comments Cuing/traning to coord ex/ activity w/NL breathing TA/heel slides Supine Exercise Name TA/heel slides/breath Side bilateral Reps/Minutes 10x each Comments Cuing/traning to coord ex/ activity w/NL breathing Kegel Supine Exercise Name Kegel quick & long hold Equipment Used wedge Reps/Minutes 6' Comments Cuing for coordination of contract/relax and for long hold thru breath. Deep Breathing Supine Exercise Name Deep Breathing training Reps/Minutes 4' Comments Much v/phy cuing needed and given small straw Other Exercises Core pressure management Other Exercise Name Core pressure management with breathwork on transfers Stand< >sup. Reps/Minutes 4' Comments phys & v cuing with sup<>sit and v cuing sit<>stand to coordinate breathing Self-Care/Home Management Treatment Education Other Education Educated and discussed per pt questions different forms of ex for her to do. Recommended yoga for breathing with ex and discussed pros/cons. Discussed ex workout in gym pros/cons and recommended pt focus on breathing with ex. Educated pt in supine<>sit<> stand with core pressure management. Activities Self-Care/Home Management Activities Issued & reviewed HEP: PF/ Bridge/1-1/2 breaths & I/S for PF/BKFOx2/breath on exhale. Issued handout for squatty potty. PT-OP-T Assessment and Plan Start: 04/17/23 20:09 Freq: Status: Active Protocol: Document 06/22/23 12:35 LRN (Rec: 06/22/23 13:46 LRN [id number]) Physical Therapy Assessment Goals Three Impairment Self assist sometimes needed to have a bowel movement Short Term Goal (STG) Pt education in Bowel massage and bowel management program. 06/01/23: Pt educated in BM massage and reissued 06/09/23. STG Duration 7 weeks (06/16/23) progressed 06/09/23 (educ needed for bowel mgmt prog) Detention Goal (LTG) Decrease need for self assist with BM (pressure applied to perineum) to void. 06/22/23: Pt reporting less use of external support on perineum to have a BM. LTG Duration 12 weeks (08/09/23) progressing 06/22/23 Two Impairment Urinary urge incontinence Short Term Goal (STG) Pt education in urge deference technique and fluid recommendations (amt & type). STG Duration 2 weeks (05/19/23) (: MET GOAL) [facility] Treater Goal (LTG) Improve PF strength to decrease symptoms of urinary leakage with a strong urge LTG Duration 12 weeks (08/09/23) One Impairment Lacks appropriate self care HEP Short Term Goal (STG) Pt educated in proper transfers to lessen core abdominal pressure. 06/22/23: Educated pt in supine<>sit<>stand with core pressure management. STG Duration 3 weeks (05/29/23) 06/22/23: MET GOAL. Detention Goal (LTG) Pt will be independent in a self care HEP for PF strengthening. 06/09/23: HEP: Kegel quick and long holds w/pillow under hips. 06/22/23: HEP: PF Hold thru bridge/1-1/2 breath, & resisted BKFOx2 w/breath on exhale. LTG Duration 12 weeks (08/09/23) progressed 06/22/23 Assessment Summary Assessment Pt with urge incontinence and difficulty with bowel movements, sometimes manual assisting to void by applying pressure on perineum. Pt w/ grade 2 cystocele/rectocele. Today pt reporting less need to support perineum to have BM . Pt by end of session pt felt she was able to hold a PF contraction 10 secs through bridge and resisted BKFO ex. Physical Therapy Plan Frequency and Duration Frequency of Treatment 1x/Week Duration of treatment (weeks) 12 Plan of Care Start Date 05/11/23 Plan of Care End Date 08/09/23 Next Visit Focus/Plan Next Note Type Treatment Note Next Visit Plan Educ in bowel management program, and to lessen core abdominal pressure (coordinate proper breaths with ADLs, body mechanics and exercise) Educ pt in Bowel movements without holding breath. PF contractions in isolation of substitute muscles, Ex's: Hip stretch (Maciej. ER/IR, IR>ER). Strengthen: Weak Hip Maciej flex, ext, & R AD. Core strengthening (rotation, TA). POC: PF strengthening, BM care, pt education, core strengthening, hip stretches.
--- NOTE | 2023-07-06 16:00 | PT.OTN ---
Current Diagnoses Muscle weakness (generalized) (07/06/23) Other specified disorders of muscle (07/06/23) Urge incontinence (07/06/23) Incomplete defecation (07/06/23) Physical Therapy Treatment Note PT-OP-A Visit Information Start: 04/17/23 20:09 Freq: Status: Active Protocol: Document 07/06/23 15:04 LRN (Rec: 07/06/23 16:00 LRN [id number]) Out-Patient Physical Therapy Visit Information Visit Information Visit Type Treatment Note Visit Start Time 15:04 Visit Stop Time 15:44 Total Visit Minutes 40 Visit Number 5 Evaluation Information Evaluation Date 05/11/23 Precautions Precautions Possible tape/latex allergy, Diabetes type 2, arthritis, L knee replacement 2015, D&C several since 1977. PT-OP-B Current Condition Start: 04/17/23 20:09 Freq: Status: Active Protocol: Document 05/11/23 10:31 LRN (Rec: 05/11/23 12:18 LRN [id number]) Current Condition History of Current Condition Onset Date 12/2022 Current Complaints Urinary leakage w/urgency, trigger of seeing toilet, self asst BM History of Current Condition Pt was having pap smear and referring physician was concerned of another prolapse. States she started estrodial 12/2022 and was referred for PT. Pt is not sure what PT will do. Pt also reports has difficulty sometimes with BM and requires pressure applied to perineum to void. Prior Treatments and Tests Bladder lift with hysterectomy by Dr. Rojas ~7 yrs ago. Developmental History Developmental History Vaginal with epiziotomy with all 3 kids (1977, 1979, miscarrage between [id number], 1982) and fissure with first child. Treatment Goals Patient/Caregiver Goals Pt goal is: Decrease symptoms of urinary urge leakage with urgency, and decrease need for self assist with BM (pressure applied to perineum) to void. Independent HEP. Personal Factors Other Personal Factors That May Effect Bladder lift with hysterectomy Therapy/Recovery 7 yrs ago, D& C several since 1977, arthritis. PT-OP-C Subjective Start: 04/17/23 20:09 Freq: Status: Active Protocol: Document 07/06/23 15:04 LRN (Rec: 07/06/23 16:00 LRN [id number]) OP-PT Subjective Patient Comments Patient Comments Not being consistent with ex's . Was camping all last week, didn't really have any urinary leakage but didn't do much coughing, laughing. PT-OP-I Pelvic Floor Start: 04/17/23 20:09 Freq: Status: Active Protocol: Document 05/11/23 10:31 LRN (Rec: 05/11/23 12:18 LRN [id number]) Pelvic Floor Assessment Urine Urinary Symptoms Urge Sensation Leakage Size Small Leakage Cause Urge Leaks Per Day Once every couple weeks not able to make it to bathroom Voiding Frequency 3-4 hrs, sometimes 1-2x/day, sometimes 3x. Nocturia 1 Pads Used In 24 Hours 0 Bowel Bowel Surgery No Bowel Symptoms Constipation,Uncontrolled Flatulence Other Bowel Symptoms Frequency 5-6x/day or sometimes not. Bowel Movement Frequency 1-4 [place] Stool Chart Comments Type 3-4 Prolapse Cystocele Grade 2 Rectocele Grade 2 Contraction Ability Voluntary Contraction Moderate Manual Muscle Testing Left 1 Manual Muscle Testing Right 2 Manual Muscle Testing Anterior 2 Manual Muscle Testing Posterior 3 Muscle Endurance (Seconds) 3 Number of Quick Contractions In 10 9 Seconds Comments Pelvic Floor Comments Pt uses substitute ms of abdominals, gluteals and hip AD's to assist with PF contractions. PT-OP-J Posture/Palpation/Skin Start: 04/17/23 20:09 Freq: Status: Active Protocol: Document 05/11/23 10:31 LRN (Rec: 05/11/23 12:18 LRN [id number]) Posture Evaluation Position Standing Head/C-Spine Posture Forward Head T-Spine Posture Increased Kyphosis L-Spine Posture Increased Lordosis Shoulder Posture (L) Rounded,(R) Rounded,(L) Forward,(R) Forward,(L) Elevated Arm Posture (L) Internally Rotated,(R) Internally Rotated Pelvis Posture Anteriorly Tilted Weight Distribution Weight Shifted Right Comments Posture Comments C-curve of spine with apex T6- T7 PT-OP-K Range of Motion Start: 04/17/23 20:09 Freq: Status: Active Protocol: Document 05/11/23 10:31 LRN (Rec: 05/11/23 12:18 LRN [id number]) Lumbar Spine Range of Motion Lumbar Spine Active Degrees Testing Position Standing Flexion 90 Extension 15 Rotation Left 30 Rotation Right 35 Lateral Flexion Left 18 Lateral Flexion Right 15 ROM Limitations Soft Tissue Tightness Comments Trunk AROM: Flexion is 90 deg ?s with 68 deg?s hip flexion, Trunk extension is 15 deg?s with 13 deg?s hip extension. Hip Goniometric Range of Motion Hip Right Passive Testing Position Supine Internal Rotation 20 External Rotation 50 Left Passive Testing Position Supine Internal Rotation 25 External Rotation 40 PT-OP-M Strength Start: 04/17/23 20:09 Freq: Status: Active Protocol: Document 05/11/23 10:31 LRN (Rec: 05/11/23 12:18 LRN [id number]) Trunk Strength Trunk Manual Muscle Testing Core Stabilization Core weakness as noted with loss of stabilization with MMT of LE's (weakness with rotation, TA). Hip Strength Hip Manual Muscle Testing Right Flexion (L2) 4 Good Extension (S1) 3 Fair Adduction 1 Trace Comments Generally 5/5 except as indicated above. Pt breathholds with MMT and positional changes. Left Flexion (L2) 4 Good Extension (S1) 3 Fair External Rotation 3+ Fair+ Comments Generally 5/5 except as indicated above. Pt breathholds with MMT and positional changes. PT-OP-Q Treatments Start: 04/17/23 20:09 Freq: Status: Active Protocol: Document 07/06/23 15:04 LRN (Rec: 07/06/23 16:00 LRN [id number]) Therapeutic Exercises Supine Exercises Iliopsoas stretch Supine Exercise Name Iliopsoas stretch from side of table Side bilateral Reps/Minutes 60 SH x 1 each Extra time for positioning due to LBP w/ stretch Comments Cuing for positioning for support of upper body while doing stretch. Fig 4 stretch Side bilateral Equipment Used Pillows to prop Hip up for a tolerable stretch Reps/Minutes 60 SH x 1 each Extra time for positioning Comments Extra time taken to position with pillows to get tolerable stretch Lateral Hip stretch Side bilateral Reps/Minutes 60 SH x 1 each Extra time for positioning Comments Pt having to hold stretch leg w/both arms to get stretch. Piriformis stretch Supine Exercise Name Ankle crossing over the knee. Side bilateral Reps/Minutes 60 SH x 1 Extra time for positioning Comments Cuing for positioning and not pulling the knee/lower leg due to stiffness Standing Exercises Iliopsoas stretch Standing Exercise Name Ilipsoas stretch Side bilateral Reps/Minutes 60 SH Extra time for positioning to avoid LBP onset Comments Much extra time w/phys & v cuing to position for stretch. Self-Care/Home Management Treatment Education Other Education Discussed & educated pt in a bowel mgmt program. Activities Self-Care/Home Management Activities Issued & reviewed HEP: Hip stretches (Piriformis & lateral hip, Fig 4, & Iliopsoas-sup & stand). PT-OP-T Assessment and Plan Start: 04/17/23 20:09 Freq: Status: Active Protocol: Document 07/06/23 15:04 LRN (Rec: 07/06/23 16:00 LRN [id number]) Physical Therapy Assessment Goals Three Impairment Self assist sometimes needed to have a bowel movement Short Term Goal (STG) Pt education in Bowel massage and bowel management program. 06/01/23: Pt educated in BM massage and reissued 07/06/23: Pt educated in bowel mgmt program STG Duration 7 weeks (06/16/23) (07/06/23: MET GOAL) Assisted Goal (LTG) Decrease need for self assist with BM (pressure applied to perineum) to void. 06/22/23: Pt reporting less use of external support on perineum to have a BM. 07/06/23: Has to assist with BM 2x/week. When eats right has to help less with BM's. LTG Duration 12 weeks (08/09/23) progressing 06/22/23 Two Impairment Urinary urge incontinence Short Term Goal (STG) Pt education in urge deference technique and fluid recommendations (amt & type). STG Duration 2 weeks (05/19/23) (: MET GOAL) Assisted Goal (LTG) Improve PF strength to decrease symptoms of urinary leakage with a strong urge. 07/06/23: Hasn't had any moments to john into the bathroom. Intermittent with having to john. LTG Duration 12 weeks (08/09/23) One Impairment Lacks appropriate self care HEP Short Term Goal (STG) Pt educated in proper transfers to lessen core abdominal pressure. 06/22/23: Educated pt in supine<>sit<>stand with core pressure management. STG Duration 3 weeks (05/29/23) 06/22/23: MET GOAL. Orthodontic Band Maker Goal (LTG) Pt will be independent in a self care HEP for PF strengthening. 06/09/23: HEP: Kegel quick and long holds w/pillow under hips. 06/22/23: HEP: PF Hold thru bridge/1-1/2 breath, & resisted BKFOx2 w/breath on exhale. 07/06/23: HEP: Stretch to hip IR's, ER's, & Flexors. LTG Duration 12 weeks (08/09/23) progressed 07/06/23 Assessment Summary Assessment Pt is very restricted in hip mobility (rotation and hip flexor). She is not consistently doing her HEP; therefore she needs much encouragement to exercise. Ilipsoas stretch in supine limited due to LBP; does better with standing stretch. Physical Therapy Plan Frequency and Duration Frequency of Treatment 1x/Week Duration of treatment (weeks) 12 Plan of Care Start Date 05/11/23 Plan of Care End Date 08/09/23 Next Visit Focus/Plan Next Note Type Treatment Note Next Visit Plan Lessen core abdominal pressure (coordinate proper breaths with ADLs, body mechanics and exercise) Educ pt in Bowel movements without holding breath. PF contractions in isolation of substitute muscles, Ex's: Hip stretch (Maciej. ER/IR, IR>ER). Strengthen: Weak Hip Maciej flex, ext, & R AD. Core strengthening (rotation, TA). POC: PF strengthening, BM care, pt education, core strengthening, hip stretches.
--- NOTE | 2023-07-13 16:07 | PT.OTN ---
Current Diagnoses Muscle weakness (generalized) (07/13/23) Other specified disorders of muscle (07/13/23) Urge incontinence (07/13/23) Incomplete defecation (07/13/23) Physical Therapy Treatment Note PT-OP-A Visit Information Start: 04/17/23 20:09 Freq: Status: Active Protocol: Document 07/13/23 15:07 LRN (Rec: 07/13/23 16:06 LRN [id number]) Out-Patient Physical Therapy Visit Information Visit Information Visit Type Treatment Note Visit Start Time 15:07 Visit Stop Time 15:48 Total Visit Minutes 41 Visit Number 6 Evaluation Information Evaluation Date 05/11/23 Precautions Precautions Possible tape/latex allergy, Diabetes type 2, arthritis, L knee replacement 2015, D&C several since 1977. PT-OP-B Current Condition Start: 04/17/23 20:09 Freq: Status: Active Protocol: Document 05/11/23 10:31 LRN (Rec: 05/11/23 12:18 LRN [id number]) Current Condition History of Current Condition Onset Date 12/2022 Current Complaints Urinary leakage w/urgency, trigger of seeing toilet, self asst BM History of Current Condition Pt was having pap smear and referring physician was concerned of another prolapse. States she started estrodial 12/2022 and was referred for PT. Pt is not sure what PT will do. Pt also reports has difficulty sometimes with BM and requires pressure applied to perineum to void. Prior Treatments and Tests Bladder lift with hysterectomy by Dr. Rojas ~7 yrs ago. Developmental History Developmental History Vaginal with epiziotomy with all 3 kids (1977, 1979, miscarrage between [id number], 1982) and fissure with first child. Treatment Goals Patient/Caregiver Goals Pt goal is: Decrease symptoms of urinary urge leakage with urgency, and decrease need for self assist with BM (pressure applied to perineum) to void. Independent HEP. Personal Factors Other Personal Factors That May Effect Bladder lift with hysterectomy Therapy/Recovery 7 yrs ago, D& C several since 1977, arthritis. PT-OP-C Subjective Start: 04/17/23 20:09 Freq: Status: Active Protocol: Document 07/13/23 15:07 LRN (Rec: 07/13/23 16:06 LRN [id number]) OP-PT Subjective Patient Comments Patient Comments Does not have squatty potty yet. States she still has to sometimes use pressure to complete BM void. PT-OP-I Pelvic Floor Start: 04/17/23 20:09 Freq: Status: Active Protocol: Document 05/11/23 10:31 LRN (Rec: 05/11/23 12:18 LRN [id number]) Pelvic Floor Assessment Urine Urinary Symptoms Urge Sensation Leakage Size Small Leakage Cause Urge Leaks Per Day Once every couple weeks not able to make it to bathroom Voiding Frequency 3-4 hrs, sometimes 1-2x/day, sometimes 3x. Nocturia 1 Pads Used In 24 Hours 0 Bowel Bowel Surgery No Bowel Symptoms Constipation,Uncontrolled Flatulence Other Bowel Symptoms Frequency 5-6x/day or sometimes not. Bowel Movement Frequency 1-4 [place] Stool Chart Comments Type 3-4 Prolapse Cystocele Grade 2 Rectocele Grade 2 Contraction Ability Voluntary Contraction Moderate Manual Muscle Testing Left 1 Manual Muscle Testing Right 2 Manual Muscle Testing Anterior 2 Manual Muscle Testing Posterior 3 Muscle Endurance (Seconds) 3 Number of Quick Contractions In 10 9 Seconds Comments Pelvic Floor Comments Pt uses substitute ms of abdominals, gluteals and hip AD's to assist with PF contractions. PT-OP-J Posture/Palpation/Skin Start: 04/17/23 20:09 Freq: Status: Active Protocol: Document 05/11/23 10:31 LRN (Rec: 05/11/23 12:18 LRN [id number]) Posture Evaluation Position Standing Head/C-Spine Posture Forward Head T-Spine Posture Increased Kyphosis L-Spine Posture Increased Lordosis Shoulder Posture (L) Rounded,(R) Rounded,(L) Forward,(R) Forward,(L) Elevated Arm Posture (L) Internally Rotated,(R) Internally Rotated Pelvis Posture Anteriorly Tilted Weight Distribution Weight Shifted Right Comments Posture Comments C-curve of spine with apex T6- T7 PT-OP-K Range of Motion Start: 04/17/23 20:09 Freq: Status: Active Protocol: Document 05/11/23 10:31 LRN (Rec: 05/11/23 12:18 LRN [id number]) Lumbar Spine Range of Motion Lumbar Spine Active Degrees Testing Position Standing Flexion 90 Extension 15 Rotation Left 30 Rotation Right 35 Lateral Flexion Left 18 Lateral Flexion Right 15 ROM Limitations Soft Tissue Tightness Comments Trunk AROM: Flexion is 90 deg ?s with 68 deg?s hip flexion, Trunk extension is 15 deg?s with 13 deg?s hip extension. Hip Goniometric Range of Motion Hip Right Passive Testing Position Supine Internal Rotation 20 External Rotation 50 Left Passive Testing Position Supine Internal Rotation 25 External Rotation 40 PT-OP-M Strength Start: 04/17/23 20:09 Freq: Status: Active Protocol: Document 05/11/23 10:31 LRN (Rec: 05/11/23 12:18 LRN [id number]) Trunk Strength Trunk Manual Muscle Testing Core Stabilization Core weakness as noted with loss of stabilization with MMT of LE's (weakness with rotation, TA). Hip Strength Hip Manual Muscle Testing Right Flexion (L2) 4 Good Extension (S1) 3 Fair Adduction 1 Trace Comments Generally 5/5 except as indicated above. Pt breathholds with MMT and positional changes. Left Flexion (L2) 4 Good Extension (S1) 3 Fair External Rotation 3+ Fair+ Comments Generally 5/5 except as indicated above. Pt breathholds with MMT and positional changes. PT-OP-Q Treatments Start: 04/17/23 20:09 Freq: Status: Active Protocol: Document 07/13/23 15:07 LRN (Rec: 07/13/23 16:06 LRN [id number]) Therapeutic Exercises Supine Exercises PF/Diagonal abdominal rot Supine Exercise Name Wedge/PF/Abodminal rot Equipment Used Wedge, ball Reps/Minutes PF/L & R (inhale mve, exhale rtn to start) Comments phys & v cuing for coordination of breath with exercise. PF/LE Roll in/outs Supine Exercise Name PF/LE Roll in-ball squeeze/ outs-TB resist Equipment Used Wedge/Ball & Lev 2 TBand Reps/Minutes 5 sec roll in/5 sec roll out Comments 10x, extra time for training/ coord of mvmt & mvmt w/breath Deep Breathing Supine Exercise Name 5-6 sec Deep breathing review Reps/Minutes 1' Sitting Exercises PF/Diagonal abdominal rot Sitting Exercise Name PF/Diagonal Abdominal rot Reps/Minutes PF/L & R (inhale mve, exhale rtn to start) Comments phys & v cuing for coordination of breath with exercise. PF/LE roll in/outs Sitting Exercise Name PF/LE Roll in-ball squeeze/ outs-TB resist Side bilateral Equipment Used Ball & Lev 2 TBand Reps/Minutes 5 sec roll in/5 sec roll out Comments 10x, extra time for training/ coord of mvmt & mvmt w/breath Isolated PF Sitting Exercise Name Isolated PF contraction Reps/Minutes 2' Comments Cuing to isolate PF contraction Self-Care/Home Management Treatment Education Patient Education Body Mechanics,Home Exercise Program Other Education Pt education to lessen core abdominal pressure (coordinate proper breaths with ADLs, body mechanics and exercise). Activities Self-Care/Home Management Activities Issued & reviewed HEP: Roll for Control 1) Abdominal ball squeeze/TBand with I/S of PF strengthening; 2) Diagonal ( rot) Abdominal rot with I/S of PF tightening. PT-OP-T Assessment and Plan Start: 04/17/23 20:09 Freq: Status: Active Protocol: Document 07/13/23 15:07 LRN (Rec: 07/13/23 16:06 LRN [id number]) Physical Therapy Assessment Goals Three Impairment Self assist sometimes needed to have a bowel movement Short Term Goal (STG) Pt education in Bowel massage and bowel management program. 06/01/23: Pt educated in BM massage and reissued 07/06/23: Pt educated in bowel mgmt program STG Duration 7 weeks (06/16/23) (07/06/23: MET GOAL) Gastroenterology Nurse Practitioner Goal (LTG) Decrease need for self assist with BM (pressure applied to perineum) to void. 06/22/23: Pt reporting less use of external support on perineum to have a BM. 07/06/23: Has to assist with BM 2x/week. When eats right has to help less with BM's. LTG Duration 12 weeks (08/09/23) progressing 06/22/23 Two Impairment Urinary urge incontinence Short Term Goal (STG) Pt education in urge deference technique and fluid recommendations (amt & type). STG Duration 2 weeks (05/19/23) (: MET GOAL) Fpc Goal (LTG) Improve PF strength to decrease symptoms of urinary leakage with a strong urge. 07/06/23: Hasn't had any moments to john into the bathroom. Intermittent with having to john. LTG Duration 12 weeks (08/09/23) progressed 07/06/23 One Impairment Lacks appropriate self care HEP Short Term Goal (STG) Pt educated in proper transfers to lessen core abdominal pressure. 06/22/23: Educated pt in supine<>sit<>stand with core pressure management. STG Duration 3 weeks (05/29/23) 06/22/23: MET GOAL. Fpc Goal (LTG) Pt will be independent in a self care HEP for PF strengthening. 06/09/23: HEP: Kegel quick and long holds w/pillow under hips. 06/22/23: HEP: PF Hold thru bridge/1-1/2 breath, & resisted BKFOx2 w/breath on exhale. 07/06/23: HEP: Stretch to hip IR's, ER's, & Flexors. 07/13/23: HEP: Coordinate core abdominal pressure with ADLs, body mechanics and future exercise program; & LE roll in/outs for abdominal and trunk rotation strengtheing w /PF. LTG Duration 12 weeks (08/09/23) progressed 07/13/23 Assessment Summary Assessment Pt may needing more training for consistency of coordination of breathing/PF contraction with ADLs and body mechanics. She need much cuing at this time for ex to perform PF contraction & coordination of breath with ex . Pt had multiple times of hamstring ms cramping with ex on wedge, probably due to weakness of ms and possibly positioning on wedge. Physical Therapy Plan Frequency and Duration Frequency of Treatment 1x/Week Duration of treatment (weeks) 12 Plan of Care Start Date 05/11/23 Plan of Care End Date 08/09/23 Next Visit Focus/Plan Next Note Type Treatment Note Next Visit Plan Assess response to educ in BM positioning w/breathwork for BM voiding. Review Roll in/ out exs and PF contractions in isolation of substitute muscles. Next: Add Hip stretch (Maciej. ER/IR, IR>ER). Strengthen: Weak Hip Maciej flex, ext, & R AD . POC: PF strengthening, BM care, pt education, core strengthening, hip stretches.
--- NOTE | 2023-07-20 15:59 | PT.OTN ---
Current Diagnoses Muscle weakness (generalized) (07/20/23) Other specified disorders of muscle (07/20/23) Urge incontinence (07/20/23) Incomplete defecation (07/20/23) Physical Therapy Treatment Note PT-OP-A Visit Information Start: 04/17/23 20:09 Freq: Status: Active Protocol: Document 07/20/23 15:03 LRN (Rec: 07/20/23 15:57 LRN [id number]) Out-Patient Physical Therapy Visit Information Visit Information Visit Type Treatment Note Visit Start Time 15:03 Visit Stop Time 15:41 Total Visit Minutes 38 Visit Number 7 Evaluation Information Evaluation Date 05/11/23 Precautions Precautions Possible tape/latex allergy, Diabetes type 2, arthritis, L knee replacement 2015, D&C several since 1977. PT-OP-B Current Condition Start: 04/17/23 20:09 Freq: Status: Active Protocol: Document 05/11/23 10:31 LRN (Rec: 05/11/23 12:18 LRN [id number]) Current Condition History of Current Condition Onset Date 12/2022 Current Complaints Urinary leakage w/urgency, trigger of seeing toilet, self asst BM History of Current Condition Pt was having pap smear and referring physician was concerned of another prolapse. States she started estrodial 12/2022 and was referred for PT. Pt is not sure what PT will do. Pt also reports has difficulty sometimes with BM and requires pressure applied to perineum to void. Prior Treatments and Tests Bladder lift with hysterectomy by Dr. Rojas ~7 yrs ago. Developmental History Developmental History Vaginal with epiziotomy with all 3 kids (1977, 1979, miscarrage between [id number], 1982) and fissure with first child. Treatment Goals Patient/Caregiver Goals Pt goal is: Decrease symptoms of urinary urge leakage with urgency, and decrease need for self assist with BM (pressure applied to perineum) to void. Independent HEP. Personal Factors Other Personal Factors That May Effect Bladder lift with hysterectomy Therapy/Recovery 7 yrs ago, D& C several since 1977, arthritis. PT-OP-C Subjective Start: 04/17/23 20:09 Freq: Status: Active Protocol: Document 07/20/23 15:03 LRN (Rec: 07/20/23 15:57 LRN [id number]) OP-PT Subjective Patient Comments Patient Comments Thinks are good, not good at doing on regular basis but states she is starting to put things togther (coordinating breathwork with movement). States having to help less with fingers pushing to have BM, maybe a couple times a week. Back pain from moving boxes over weekend. Pt feeling like she may be ready to be placed on HEP. PT-OP-I Pelvic Floor Start: 04/17/23 20:09 Freq: Status: Active Protocol: Document 05/11/23 10:31 LRN (Rec: 05/11/23 12:18 LRN [id number]) Pelvic Floor Assessment Urine Urinary Symptoms Urge Sensation Leakage Size Small Leakage Cause Urge Leaks Per Day Once every couple weeks not able to make it to bathroom Voiding Frequency 3-4 hrs, sometimes 1-2x/day, sometimes 3x. Nocturia 1 Pads Used In 24 Hours 0 Bowel Bowel Surgery No Bowel Symptoms Constipation,Uncontrolled Flatulence Other Bowel Symptoms Frequency 5-6x/day or sometimes not. Bowel Movement Frequency 1-4 [place] Stool Chart Comments Type 3-4 Prolapse Cystocele Grade 2 Rectocele Grade 2 Contraction Ability Voluntary Contraction Moderate Manual Muscle Testing Left 1 Manual Muscle Testing Right 2 Manual Muscle Testing Anterior 2 Manual Muscle Testing Posterior 3 Muscle Endurance (Seconds) 3 Number of Quick Contractions In 10 9 Seconds Comments Pelvic Floor Comments Pt uses substitute ms of abdominals, gluteals and hip AD's to assist with PF contractions. PT-OP-J Posture/Palpation/Skin Start: 04/17/23 20:09 Freq: Status: Active Protocol: Document 05/11/23 10:31 LRN (Rec: 05/11/23 12:18 LRN [id number]) Posture Evaluation Position Standing Head/C-Spine Posture Forward Head T-Spine Posture Increased Kyphosis L-Spine Posture Increased Lordosis Shoulder Posture (L) Rounded,(R) Rounded,(L) Forward,(R) Forward,(L) Elevated Arm Posture (L) Internally Rotated,(R) Internally Rotated Pelvis Posture Anteriorly Tilted Weight Distribution Weight Shifted Right Comments Posture Comments C-curve of spine with apex T6- T7 PT-OP-K Range of Motion Start: 04/17/23 20:09 Freq: Status: Active Protocol: Document 05/11/23 10:31 LRN (Rec: 05/11/23 12:18 LRN [id number]) Lumbar Spine Range of Motion Lumbar Spine Active Degrees Testing Position Standing Flexion 90 Extension 15 Rotation Left 30 Rotation Right 35 Lateral Flexion Left 18 Lateral Flexion Right 15 ROM Limitations Soft Tissue Tightness Comments Trunk AROM: Flexion is 90 deg ?s with 68 deg?s hip flexion, Trunk extension is 15 deg?s with 13 deg?s hip extension. Hip Goniometric Range of Motion Hip Right Passive Testing Position Supine Internal Rotation 20 External Rotation 50 Left Passive Testing Position Supine Internal Rotation 25 External Rotation 40 PT-OP-M Strength Start: 04/17/23 20:09 Freq: Status: Active Protocol: Document 05/11/23 10:31 LRN (Rec: 05/11/23 12:18 LRN [id number]) Trunk Strength Trunk Manual Muscle Testing Core Stabilization Core weakness as noted with loss of stabilization with MMT of LE's (weakness with rotation, TA). Hip Strength Hip Manual Muscle Testing Right Flexion (L2) 4 Good Extension (S1) 3 Fair Adduction 1 Trace Comments Generally 5/5 except as indicated above. Pt breathholds with MMT and positional changes. Left Flexion (L2) 4 Good Extension (S1) 3 Fair External Rotation 3+ Fair+ Comments Generally 5/5 except as indicated above. Pt breathholds with MMT and positional changes. PT-OP-Q Treatments Start: 04/17/23 20:09 Freq: Status: Active Protocol: Document 07/20/23 15:03 LRN (Rec: 07/20/23 15:57 LRN [id number]) Therapeutic Exercises Supine Exercises PF/LE Roll in/outs Supine Exercise Name PF/LE Roll in-ball squeeze/ outs-TB resist Equipment Used Ball & Lev 2 TBand (no wedge due to back pain) Reps/Minutes 3-5 sec roll in/3-5 sec roll out Comments 10x, extra time for training/ coord of mvmt & mvmt w/breath Iliopsoas stretch Supine Exercise Name Iliopsoas stretch from side of table Side bilateral Reps/Minutes 60 SH x 1 each Extra time for positioning due to LBP w/ stretch Comments Cuing for positioning for support of upper body while doing stretch. Fig 4 stretch Side bilateral Equipment Used Pillows to prop Hip up for a tolerable stretch Reps/Minutes 60 SH x 1 each Extra time for positioning Comments Extra time taken to position with pillows to get tolerable stretch Lateral Hip stretch Side bilateral Reps/Minutes 60 SH x 1 each Extra time for positioning Comments Pt having to hold stretch leg w/both arms to get stretch. Piriformis stretch Supine Exercise Name Ankle crossing over the knee. Side bilateral Reps/Minutes 60 SH x 1 Extra time for positioning Comments Cuing for positioning and not pulling the knee/lower leg due to stiffness Kegel Supine Exercise Name Kegel in isolation of buttock and TA. Comments Cuing for positioning, arching back, reducing force of contraction. Deep Breathing Supine Exercise Name 5-6 sec Deep breathing review Reps/Minutes 2' Comments V & Phys Cuing for abdominal breathing w/a hand on chest and TA Sidelying Exercises R hip AD Sidelying Exercise Name R hip AD/exhale on lift Side bilateral Reps/Minutes 5x each Comments Phys & v cuing for core stabilization,exhale on lift, and positioning. DB/Clamshell Sidelying Exercise Name Clamshell w/Breath (exhale on lift) Side bilateral Reps/Minutes 5x each Comments Cuing for TA stab, exhale on lift and for positioning. Self-Care/Home Management Treatment Activities Self-Care/Home Management Activities Issued & verbally reviewd HEP: Strengthening of Hip Maciej flex , ext. PT-OP-T Assessment and Plan Start: 04/17/23 20:09 Freq: Status: Active Protocol: Document 07/20/23 15:03 LRN (Rec: 07/20/23 15:57 LRN [id number]) Physical Therapy Assessment Goals Three Impairment Self assist sometimes needed to have a bowel movement Short Term Goal (STG) Pt education in Bowel massage and bowel management program. 06/01/23: Pt educated in BM massage and reissued 07/06/23: Pt educated in bowel mgmt program STG Duration 7 weeks (06/16/23) (07/06/23: MET GOAL) Alf Goal (LTG) Decrease need for self assist with BM (pressure applied to perineum) to void. 06/22/23: Pt reporting less use of external support on perineum to have a BM. 07/06/23: Has to assist with BM 2x/week. When eats right has to help less with BM's. LTG Duration 12 weeks (08/09/23) progressing 06/22/23 Two Impairment Urinary urge incontinence Short Term Goal (STG) Pt education in urge deference technique and fluid recommendations (amt & type). STG Duration 2 weeks (05/19/23) (: MET GOAL) Dry Chain Worker Goal (LTG) Improve PF strength to decrease symptoms of urinary leakage with a strong urge. 07/06/23: Hasn't had any moments to john into the bathroom. Intermittent with having to john. LTG Duration 12 weeks (08/09/23) progressed 07/06/23 One Impairment Lacks appropriate self care HEP Short Term Goal (STG) Pt educated in proper transfers to lessen core abdominal pressure. 06/22/23: Educated pt in supine<>sit<>stand with core pressure management. STG Duration 3 weeks (05/29/23) 06/22/23: MET GOAL. Dry Chain Worker Goal (LTG) Pt will be independent in a self care HEP for PF strengthening. 06/09/23: HEP: Kegel quick and long holds w/pillow under hips. 06/22/23: HEP: PF Hold thru bridge/1-1/2 breath, & resisted BKFOx2 w/breath on exhale. 07/06/23: HEP: Stretch to hip IR's, ER's, & Flexors. 07/13/23: HEP: Coordinate core abdominal pressure with ADLs, body mechanics and future exercise program; & LE roll in/outs for abdominal and trunk rotation strengthening w/PF. 07/20/23: HEP: Strengthen Hip Maciej flex, ext, (R hip AD isssued last session; therefore reviewed handout). LTG Duration 12 weeks (08/09/23) progressed 07/20/23 Assessment Summary Assessment Postive response to BM trainng with pt reporting lessening of need to assist with BM's from daily initially to 2x/ week. Pt able to perform hip rotational stretches previously issued with handout to assist in recall. Pt had difficulty to start with Deep Breathing/LE roll in-outs, but improved coordination after training jadiel in sidelie. Pt not able to tolerate supine ex's w/pillow under hips due to back pain. Physical Therapy Plan Frequency and Duration Frequency of Treatment 1x/Week Duration of treatment (weeks) 12 Plan of Care Start Date 05/11/23 Plan of Care End Date 08/09/23 Next Visit Focus/Plan Next Note Type Treatment Note Next Visit Plan DC next visit if pt still requests. Review Deep Breath/ PF/Roll in-out exs and PF contractions in isolation of substitute muscles. Review HEP issued of hip strengthening (flex, Ext). POC: PF strengthening, BM care, HEP, core strengthening.
--- NOTE | 2023-08-03 17:09 | PT-OP ANOTE ---
Per phone conversation, the pt reports she has been sick with 2 different illness and this week woke with temperature and not feeling well. She states she would not be able to return for therapy this week due to illness and that she has a new referral that was given to her for PT and requests DC from PT for her PF rehabilitation due to having less urgency ad able to h ave BM more easy. Pt will seek to schedule PT for her new condition and is agreeable to DC today from PT.
--- NOTE | 2023-08-04 08:15 | PT.OPDS ---
Current Diagnoses Muscle weakness (generalized) (07/20/23) Other specified disorders of muscle (07/20/23) Urge incontinence (07/20/23) Incomplete defecation (07/20/23) Visit Care Team Role Provider Type DENISHA Hills Attending Provider Advanced Accounts Collector Family Provider Primary Care Provider Referring Provider Specialty: Family Practice Address: [address] [place] [address], [facility] Email: [email or web address] Visit Number Visit Number 7 Discharge Summary PT-OP-B Current Condition Start: 04/17/23 20:09 Freq: Status: Active Protocol: Document 05/11/23 10:31 LRN (Rec: 05/11/23 12:18 LRN [id number]) Current Condition History of Current Condition Onset Date 12/2022 Current Complaints Urinary leakage w/urgency, trigger of seeing toilet, self asst BM History of Current Condition Pt was having pap smear and referring physician was concerned of another prolapse. States she started estrodial 12/2022 and was referred for PT. Pt is not sure what PT will do. Pt also reports has difficulty sometimes with BM and requires pressure applied to perineum to void. Prior Treatments and Tests Bladder lift with hysterectomy by Dr. Rojas ~7 yrs ago. Developmental History Developmental History Vaginal with epiziotomy with all 3 kids (1977, 1979, miscarrage between [id number], 1982) and fissure with first child. Treatment Goals Patient/Caregiver Goals Pt goal is: Decrease symptoms of urinary urge leakage with urgency, and decrease need for self assist with BM (pressure applied to perineum) to void. Independent HEP. Personal Factors Other Personal Factors That May Effect Bladder lift with hysterectomy Therapy/Recovery 7 yrs ago, D& C several since 1977, arthritis. PT-OP-C Subjective Start: 04/17/23 20:09 Freq: Status: Active Protocol: Document 08/03/23 17:12 LRN (Rec: 08/03/23 17:17 LRN [id number]) OP-PT Subjective Patient Comments Patient Comments Per phone conversation pt reports canceled therapy due to sickness 2 weeks in a row. Today woke with fever. States she has a new PT referral for something different. Request DC from PF rehab due to having less urgency and BM's are easier. PT-OP-I Pelvic Floor Start: 04/17/23 20:09 Freq: Status: Active Protocol: Document 05/11/23 10:31 LRN (Rec: 05/11/23 12:18 LRN [id number]) Pelvic Floor Assessment Urine Urinary Symptoms Urge Sensation Leakage Size Small Leakage Cause Urge Leaks Per Day Once every couple weeks not able to make it to bathroom Voiding Frequency 3-4 hrs, sometimes 1-2x/day, sometimes 3x. Nocturia 1 Pads Used In 24 Hours 0 Bowel Bowel Surgery No Bowel Symptoms Constipation,Uncontrolled Flatulence Other Bowel Symptoms Frequency 5-6x/day or sometimes not. Bowel Movement Frequency 1-4 [place] Stool Chart Comments Type 3-4 Prolapse Cystocele Grade 2 Rectocele Grade 2 Contraction Ability Voluntary Contraction Moderate Manual Muscle Testing Left 1 Manual Muscle Testing Right 2 Manual Muscle Testing Anterior 2 Manual Muscle Testing Posterior 3 Muscle Endurance (Seconds) 3 Number of Quick Contractions In 10 9 Seconds Comments Pelvic Floor Comments Pt uses substitute ms of abdominals, gluteals and hip AD's to assist with PF contractions. PT-OP-J Posture/Palpation/Skin Start: 04/17/23 20:09 Freq: Status: Active Protocol: Document 05/11/23 10:31 LRN (Rec: 05/11/23 12:18 LRN [id number]) Posture Evaluation Position Standing Head/C-Spine Posture Forward Head T-Spine Posture Increased Kyphosis L-Spine Posture Increased Lordosis Shoulder Posture (L) Rounded,(R) Rounded,(L) Forward,(R) Forward,(L) Elevated Arm Posture (L) Internally Rotated,(R) Internally Rotated Pelvis Posture Anteriorly Tilted Weight Distribution Weight Shifted Right Comments Posture Comments C-curve of spine with apex T6- T7 PT-OP-K Range of Motion Start: 04/17/23 20:09 Freq: Status: Active Protocol: Document 05/11/23 10:31 LRN (Rec: 05/11/23 12:18 LRN [id number]) Lumbar Spine Range of Motion Lumbar Spine Active Degrees Testing Position Standing Flexion 90 Extension 15 Rotation Left 30 Rotation Right 35 Lateral Flexion Left 18 Lateral Flexion Right 15 ROM Limitations Soft Tissue Tightness Comments Trunk AROM: Flexion is 90 deg ?s with 68 deg?s hip flexion, Trunk extension is 15 deg?s with 13 deg?s hip extension. Hip Goniometric Range of Motion Hip Right Passive Testing Position Supine Internal Rotation 20 External Rotation 50 Left Passive Testing Position Supine Internal Rotation 25 External Rotation 40 PT-OP-M Strength Start: 04/17/23 20:09 Freq: Status: Active Protocol: Document 05/11/23 10:31 LRN (Rec: 05/11/23 12:18 LRN [id number]) Trunk Strength Trunk Manual Muscle Testing Core Stabilization Core weakness as noted with loss of stabilization with MMT of LE's (weakness with rotation, TA). Hip Strength Hip Manual Muscle Testing Right Flexion (L2) 4 Good Extension (S1) 3 Fair Adduction 1 Trace Comments Generally 5/5 except as indicated above. Pt breathholds with MMT and positional changes. Left Flexion (L2) 4 Good Extension (S1) 3 Fair External Rotation 3+ Fair+ Comments Generally 5/5 except as indicated above. Pt breathholds with MMT and positional changes. PT-OP-T Assessment and Plan Start: 04/17/23 20:09 Freq: Status: Active Protocol: Document 08/03/23 17:12 LRN (Rec: 08/03/23 17:17 LRN [id number]) Physical Therapy Assessment Goals Three Impairment Self assist sometimes needed to have a bowel movement Short Term Goal (STG) Pt education in Bowel massage and bowel management program. 06/01/23: Pt educated in BM massage and reissued 07/06/23: Pt educated in bowel mgmt program STG Duration 7 weeks (06/16/23) (07/06/23: MET GOAL) [facility] Goal (LTG) Decrease need for self assist with BM (pressure applied to perineum) to void. 06/22/23: Pt reporting less use of external support on perineum to have a BM. 07/06/23: Has to assist with BM 2x/week. When eats right has to help less with BM's. LTG Duration 12 weeks (08/09/23) progressing 06/22/23 Two Impairment Urinary urge incontinence Short Term Goal (STG) Pt education in urge deference technique and fluid recommendations (amt & type). STG Duration 2 weeks (05/19/23) (: MET GOAL) [facility] Goal (LTG) Improve PF strength to decrease symptoms of urinary leakage with a strong urge. 07/06/23: Hasn't had any moments to john into the bathroom. Intermittent with having to john. LTG Duration 12 weeks (08/09/23) progressed 07/06/23 One Impairment Lacks appropriate self care HEP Short Term Goal (STG) Pt educated in proper transfers to lessen core abdominal pressure. 06/22/23: Educated pt in supine<>sit<>stand with core pressure management. STG Duration 3 weeks (05/29/23) 06/22/23: MET GOAL. [facility] Goal (LTG) Pt will be independent in a self care HEP for PF strengthening. 06/09/23: HEP: Kegel quick and long holds w/pillow under hips. 06/22/23: HEP: PF Hold thru bridge/1-1/2 breath, & resisted [id number] w/breath on exhale. 07/06/23: HEP: Stretch to hip IR's, ER's, & Flexors. 07/13/23: HEP: Coordinate core abdominal pressure with ADLs, body mechanics and future exercise program; & LE roll in/outs for abdominal and trunk rotation strengthening w/PF. 07/20/23: HEP: Strengthen Hip Maciej flex, ext, (R hip AD isssued last session; therefore reviewed handout). LTG Duration 12 weeks (08/09/23) progressed 07/20/23 Assessment Summary Assessment Pt has canceled her last 2 appts due to illness and will not be able to return before her Plan of Care expires. The pt is requesting DC from PT due to having less urgency and having BM's that are easier. She has a new PT referral she would like to begin; therefore DC from PF rehab is request. The pt did not complete her PF rehab; therefore would benefit from PF rehab in the future to complete her program when she is able to focus on PF rehabilitation. Physical Therapy Plan Discharge Physical Therapy Discharge Reasons Patient Request Discharge Comments Thank you for your referral. PF rehab in the future would be appropriate.
== END 2023-08-05 11:20 | disposition home or self-care (01) ==
LOC: PHYS 15:00
PROVIDERS: Family Provider Nurse Practitioner; PCP Nurse Practitioner; Referring Provider Nurse Practitioner; Visit Provider Nurse Practitioner
DX: M62.89 Other specified disorders of muscle (principal); N39.41 Urge incontinence; R15.0 Incomplete defecation; M62.81 Muscle weakness (generalized)
CPT/HCPCS: 97110; 97162; 97530; 97535

== ENCOUNTER → 2023-07-30 09:46 | Outpatient (CLI) | payer MEDICARE, OTHER, SELFPAY ==
[2023-07-30 12:17] LABS: Erythrocyte Sedimentation Rate 25 MM/HR (0-20)
[2023-07-30 12:28] LABS: C-Reactive Protein Quant 0.5 mg/dL (<1.0); Rheumatoid Factor < 8.6 IU/mL (<12.0)
[2023-07-30 13:10] LABS: Vitamin B12 427 pg/mL (239-931)
== END ==
PROVIDERS: Family Provider Nurse Practitioner; PCP Nurse Practitioner; Referring Provider Physician Assistant; Visit Provider Physician Assistant
DX: M54.30 Sciatica, unspecified side (principal); G62.9 Polyneuropathy, unspecified
CPT/HCPCS: 36415; 82607; 85651; 86140; 86430

== ENCOUNTER → 2023-11-12 09:39 | Outpatient (CLI) | payer MEDICARE, OTHER, SELFPAY ==
[2023-11-12 11:26] LABS: Cholesterol 148 mg/dL (140-199); HDL Cholesterol 34 mg/dL (40-60); LDL Cholesterol Calculated 61 mg/dL (<100); Triglycerides 265 mg/dL (35-150)
== END ==
PROVIDERS: Family Provider Nurse Practitioner; PCP Family Medicine; Referring Provider Family Medicine; Visit Provider Family Medicine
DX: E78.2 Mixed hyperlipidemia (principal)
CPT/HCPCS: 36415; 80061

== ENCOUNTER → 2024-04-17 10:20 | Outpatient (CLI) | payer MEDICARE, OTHER, SELFPAY ==
--- NOTE | 2024-04-17 10:22 | DI.MRI.S_ITS ---
PROCEDURE: MR SHOULDER LT WO CON INDICATIONS: LEFT SHOULDER PAIN TECHNIQUE: Noncontrast oblique coronal T2 fast spin echo with fat saturation, oblique sagittal T1 spin echo and T2 fast spin echo with fat saturation, axial T1 spin echo and T2 fast spin echo with fat saturation through the shoulder. COMPARISON: None. FINDINGS: Image quality: Excellent. Rotator cuff: Moderate grade articular surface partial-thickness tear involving distal supraspinatus at its insertion on the humeral head is seen extending to musculotendinous junction. Low-grade articular surface partial-thickness tear involving distal infraspinatus at its insertion on humeral head is seen. Low-grade partial-thickness tear involving superior fibers of distal subscapularis is also seen. No full-thickness rotator cuff tendon rupture. Sagittal images demonstrate moderate supraspinatus muscle atrophy. Bones and bursae: No bone marrow contusions or fractures. Mild to moderate acromioclavicular joint osteoarthritic changes are seen with joint space narrowing and downward osteophyte formation depressing the musculotendinous junction of supraspinatus. Type 1 acromion is seen, without an os acromiale. Moderate joint effusion and subacromial subdeltoid bursal fluid, no gross loose bodies. Capsule and soft tissues: Signal abnormality and fraying of superior anterior labrum is seen concerning for superior anterior labral tear. The long head of the biceps tendon appears attenuated at the level of greater tuberosity. The rotator interval appears normal, without fibrosis. The coracohumeral ligament is normal in thickness. IMPRESSION: 1. Moderate grade articular surface partial-thickness tear involving distal supraspinatus extending to musculotendinous junction. Moderate supraspinatus muscle atrophy. 2. Low-grade articular surface partial-thickness tear involving distal infraspinatus. Low-grade partial-thickness tear involving superior fibers of distal subscapularis. No full-thickness rotator cuff tendon rupture. 3. Mild to moderate acromioclavicular joint osteoarthritis. No fracture or dislocation. Moderate joint effusion and subacromial subdeltoid bursal fluid, no gross loose bodies. 4. Suggestion of superior anterior left shoulder labral tear. 5. Proximal long head of biceps tendinosis and low-grade intrasubstance partial-thickness tear. Dictated by: Camilo Mata M.D. on 04/18/2024 at 8:41 Approved by: Camilo Mata M.D. on 04/18/2024 at 8:44
== END ==
LOC: MRI 10:21
PROVIDERS: Family Provider Nurse Practitioner; PCP Family Medicine; Referring Provider Orthopaedic Surgery; Visit Provider Orthopaedic Surgery
DX: M75.112 Incomplete rotator cuff tear or rupture of left shoulder, not specified as traumatic (principal); M25.512 Pain in left shoulder; M19.012 Primary osteoarthritis, left shoulder
CPT/HCPCS: 73221

== ENCOUNTER 2024-05-31 08:15 | Outpatient (RCR) | payer MEDICARE, OTHER, SELFPAY ==
--- NOTE | 2024-04-11 10:59 | PT.OIE ---
Current Diagnoses Pain in left shoulder (04/11/24) Sciatica, unspecified side (04/11/24) Pain in left hand (04/11/24) Past Medical History (Last Updated 03/11/24 @ 18:55 by Kylie Anderson MD) Class 1 obesity due to excess calories with body mass index (BMI) of 34.0 to 34.9 in adult DM (diabetes mellitus), type 2 with ophthalmic complications Elevated fasting blood sugar Facial contusion Hyperlipidemia Left knee pain (02/20/15) Left shoulder strain Metabolic syndrome (08/25/17) Morbid obesity with body mass index (BMI) of 40.0 to 49.9 (02/20/15) Osteoarthritis of left shoulder Other group home (current) drug therapy Pelvic floor dysfunction Trigger finger (acquired) Past Surgical History (Last Reviewed 05/07/23 @ 10:18 by Gary Alston DO) History of tonsillectomy S/P total knee arthroplasty Status post dilation and curettage Status post hysterectomy with oophorectomy (12/12/13) Visit Care Team Role Provider Type DENISHA Hills Family Provider Advanced Artificial Snow Making Machine Operator Specialty: Family Practice Address: [address] [place] [address] Email: [email or web address] Kylie Anderson MD Attending Provider Physician Primary Care Provider Referring Provider Specialty: [facility] ASSEMBLY LINE DRIVER Address: [address] [place] [address] Fax: Email: [email or web address] Physical Therapy Initial Evaluation PT-OP-A Visit Information Start: 04/10/24 07:48 Freq: Status: Active Protocol: Document 04/11/24 07:30 MB (Rec: 04/11/24 08:15 MB [id number]) Out-Patient Physical Therapy Visit Information Visit Information Visit Type Initial Evaluation Visit Note Medicare 10/30 before KX Progress note before 05/12 Pt arrives 5' before evaluation Visit Start Time 07:30 Visit Stop Time 08:10 Visit Number 1 Number of KETTLE FIRER Visits 0 Evaluation Information Evaluation Date 04/11/24 Precautions Precautions Left shoulder OA, to have left shoulder MRI to r/o rotator cuff injury. Pt has problems with latex and adhesives. PT-OP-B Current Condition Start: 04/10/24 07:48 Freq: Status: Active Protocol: Document 04/11/24 07:30 MB (Rec: 04/11/24 08:15 MB [id number]) Current Condition History of Current Condition Onset Date April 2023 Current Complaints Left sided problems History of Current Condition Pt reports fall last April. She had a concussion and left shoulder injury and was found to have arthritis. She went to see [facility] last week and they would like a MRI to make sure that she does not have a rotator cuff tear. Pt is right handed. She has problems on her entire left side and has a history of sciatica. Her LLE and LUE occ swell up. She has history of LTKA 7 years ago. The sciatic a started 1.5 years ago and she had swelling on the back of her LLE after TKA. Pt is retired and she likes to quilt. Pt prefers to sleep on her left side. Reaching is problematic with her left arm and she has pain at night. Pt uses Voltaren during the day and lidocine patch at night. Pt has DM. 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 Prior Treatments and Tests Recent left shoulder x-ray at [facility] and OA, they would like a MRI Treatment Goals Patient/Caregiver Goals To decreased left shoulder pain and increase arm strength PT-OP-C Subjective Start: 04/10/24 07:48 Freq: Status: Active Protocol: Document 04/11/24 07:30 MB (Rec: 04/11/24 08:15 MB [id number]) OP-PT Subjective Patient Comments Patient Comments See history of current condition Patient Questionnaires Quick Dash- Upper Extremity Quick Dash UE Score 37 Quick Dash UE Impairment 40 to 59% Impaired (Score 40- 59) PT-OP-J Posture/Palpation/Skin Start: 04/10/24 07:48 Freq: Status: Active Protocol: Document 04/11/24 07:30 MB (Rec: 04/11/24 08:15 MB [id number]) Posture Evaluation Comments Posture Comments Increased soft tissue, more soft tissue left abdomen compared to the right, right shoulder is lower than the left, left thoracic convexity and right iliac crest higher than the right, overpronation on the right ankle and increased right knee valgus. PT-OP-K Range of Motion Start: 04/10/24 07:48 Freq: Status: Active Protocol: Document 04/11/24 07:30 MB (Rec: 04/11/24 08:15 MB [id number]) Cervical Spine Range of Motion Cervical Spine Active Testing Position Standing Flexion 20 Extension 40 Rotation Left 40 Rotation Right 50 Shoulder Goniometric Range of Motion Shoulder Left Shoulder ROM WFL No Testing Position Standing Flexion 135 Abduction 155 Internal Rotation Behind Back (text) L5 Comments AROM standing PROM hook lying with arm in 80 deg abduction, ER to 30 deg and IR to 15 deg Right Shoulder ROM WFL Yes Testing Position Standing Flexion 150 Abduction 165 Internal Rotation Behind Back (text) T11 Comments AROM standing PROM hook lying with arm in 90 /90: ER 90 deg and IR 80 deg PT-OP-M Strength Start: 04/10/24 07:48 Freq: Status: Active Protocol: Document 04/11/24 07:30 MB (Rec: 04/11/24 08:15 MB [id number]) Shoulder Strength Shoulder Manual Muscle Testing Left Comments Deferred MMT d/t painful and limited AROM Right Flexion 4 Good Abduction (C5) 5 Normal External Rotation 5 Normal Internal Rotation 5 Normal Elbow/Forearm Strength Elbow and Forearm Manual Muscle Testing Left Flexion (C6) 4 Good Extension (C7) 5 Normal Right Flexion (C6) 5 Normal Extension (C7) 5 Normal PT-OP-Q Treatments Start: 04/10/24 07:48 Freq: Status: Active Protocol: Document 04/11/24 07:30 MB (Rec: 04/11/24 08:15 MB [id number]) Therapeutic Exercises Supine Exercises AAROM cane flexion Comments RUE assisting with LUE and pillow under head, several gentle reps Self-Care/Home Management Treatment Education Patient Education Body Mechanics,Home Exercise Program,Joint Protection,Pain Management,Posture Other Education Ed pt on benefits of proper sleeping position with pillow support under head, between legs and arms and arms down, benefits of ice to help left shoulder pain, frozen peas. Ed pt that since she has the most pain at night, if she does not work on her sleeping position, it is unlikely that PT will be maximally helpful. PT-OP-T Assessment and Plan Start: 04/10/24 07:48 Freq: Status: Active Protocol: Document 04/11/24 07:30 MB (Rec: 04/11/24 08:15 MB [id number]) Physical Therapy Assessment Rehab Potential Rehabilitation Potential Fair Evaluation Complexity Number of Personal Factors/Comorbidities 1-2 Number of Body Systems Impaired 1-2 Clinical Presentation at Evaluation Evolving Impairments Impairments Activity Tolerance,Pain, Posture,ROM,Soft Tissue Mobility,Strength Goals 3 Impairment Decreased left shoulder range Dental Mold Maker Goal (LTG) Pt will present with left shoulder AROM flexion, abduction and IR similar to the left to improve functional ability to perform tasks overhead and behind back for bathing and dressing. LTG Duration 8 weeks 2 Impairment Lack of HEP Senior Living Goal (LTG) Pt will perform progressive HEP with I including pelvic realignment, postural, range, flexibility, core and intrascapular and shoulder strengthening exercises to improve pain and function. LTG Duration 8 weeks 1 Impairment QuickDASH reflects 59.09% impairment Senior Living Goal (LTG) Pt will present with improved QuickDASH score to reflect no more than 25% impairment to improve pain and quality of life with functional activities. LTG Duration 8 weeks Assessment Summary Assessment Pt is a 69 y/o female presenting increased body mass , spinal curvature changes, fall one year ago with reports of concussion and left shoulder injury/pain, history of left sided swelling in arm and leg, left sided sciatica and MHE, a familial disease causing bone spurs. Pt presents with painful and decreased left shoulder ROM and weakness. PT order is for sciatica and left shoulder and pt reports that her biggest concern is her left shoulder and that she has a shoulder MRI ordered by ortho and she might have an injection. PT will address posture including pelvic alignment and this might benefit left sciatic symptoms. Further, thoracic convexity to the left and stiffness may be exacerbating her LLE symptoms and so PT will work on thoracic mobility with her shoulder. Reports of left sided swelling is a red flag and recommend follow-up with PCP about this. Abdominal adipose tissue and left UE adipose tissue is different compared to right side. Pt will benefit from PT for posture, alignment, flexibility and strengthening. Physical Therapy Plan Frequency and Duration Frequency of Treatment 1-2x/wk Duration of treatment (weeks) 8 Plan of Care Start Date 04/11/24 Plan of Care End Date 06/17/24 Therapeutic Interventions Therapeutic Interventions Balance Training,Canalithic Repositioning,Coordination Training,Home Exercise Program ,Joint Mobilizations,Manual Therapy,Neuromuscular Re- education,Patient/Caregiver Education,Self-Care/Home Management,Soft Tissue Mobilization,Therapeutic Activities,Therapeutic Exercises Modalities Cold Pack/Ice Massage,Hot Packs,Ultrasound Next Visit Focus/Plan Next Note Type Treatment Note Next Visit Plan Review cane flexion and consider pulleys, pelvic realignment exercises to help with posture and initiate manual work
--- NOTE | 2024-04-11 10:59 | PT.OPPOC ---
Physical, Occupational & Speech Therapy At [facility] Current Diagnoses Pain in left shoulder (04/11/24) Sciatica, unspecified side (04/11/24) Pain in left hand (04/11/24) Visit Care Team Role Provider Type DENISHA Hills Family Provider Advanced Photo Editor Specialty: Family Practice Address: [address] [place] [address], [id number] Email: [email or web address] Kylie Anderson MD Attending Provider Physician Primary Care Provider Referring Provider Specialty: [facility] HAZARDOUS MATERIALS ANALYST Address: [address] [place] [address], [id number] Fax: Email: [email or web address] Plan Of Care PT-OP-T Assessment and Plan Start: 04/10/24 07:48 Freq: Status: Active Protocol: Document 04/11/24 07:30 MB (Rec: 04/11/24 08:15 MB [id number]) Physical Therapy Assessment Rehab Potential Rehabilitation Potential Fair Evaluation Complexity Number of Personal Factors/Comorbidities 1-2 Number of Body Systems Impaired 1-2 Clinical Presentation at Evaluation Evolving Impairments Impairments Activity Tolerance,Pain, Posture,ROM,Soft Tissue Mobility,Strength Goals 3 Impairment Decreased left shoulder range Helper Steel Fabrication Goal (LTG) Pt will present with left shoulder AROM flexion, abduction and IR similar to the left to improve functional ability to perform tasks overhead and behind back for bathing and dressing. LTG Duration 8 weeks 2 Impairment Lack of HEP Assisted Goal (LTG) Pt will perform progressive HEP with I including pelvic realignment, postural, range, flexibility, core and intrascapular and shoulder strengthening exercises to improve pain and function. LTG Duration 8 weeks 1 Impairment QuickDASH reflects 59.09% impairment Assisted Goal (LTG) Pt will present with improved QuickDASH score to reflect no more than 25% impairment to improve pain and quality of life with functional activities. LTG Duration 8 weeks Assessment Summary Assessment Pt is a 69 y/o female presenting increased body mass , spinal curvature changes, fall one year ago with reports of concussion and left shoulder injury/pain, history of left sided swelling in arm and leg, left sided sciatica and MHE, a familial disease causing bone spurs. Pt presents with painful and decreased left shoulder ROM and weakness. PT order is for sciatica and left shoulder and pt reports that her biggest concern is her left shoulder and that she has a shoulder MRI ordered by ortho and she might have an injection. PT will address posture including pelvic alignment and this might benefit left sciatic symptoms. Further, thoracic convexity to the left and stiffness may be exacerbating her LLE symptoms and so PT will work on thoracic mobility with her shoulder. Reports of left sided swelling is a red flag and recommend follow-up with PCP about this. Abdominal adipose tissue and left UE adipose tissue is different compared to right side. Pt will benefit from PT for posture, alignment, flexibility and strengthening. Physical Therapy Plan Frequency and Duration Frequency of Treatment 1-2x/wk Duration of treatment (weeks) 8 Plan of Care Start Date 04/11/24 Plan of Care End Date 06/17/24 Therapeutic Interventions Therapeutic Interventions Balance Training,Canalithic Repositioning,Coordination Training,Home Exercise Program ,Joint Mobilizations,Manual Therapy,Neuromuscular Re- education,Patient/Caregiver Education,Self-Care/Home Management,Soft Tissue Mobilization,Therapeutic Activities,Therapeutic Exercises Modalities Cold Pack/Ice Massage,Hot Packs,Ultrasound Next Visit Focus/Plan Next Note Type Treatment Note Next Visit Plan Review cane flexion and consider pulleys, pelvic realignment exercises to help with posture and initiate manual work Plan of Care Dates Plan of Care Start Date 04/11/24 Plan of Care End Date 06/17/24 Electronically Signed by: Rita Meza PT 04/11/24 [id number] If you are in agreement with this Plan of Care, please return a signed and dated copy. I have reviewed this Plan of Care and certify that the skilled therapy services above are required to meet the patient?s needs. Physician Signature Date Printed Name and Credentials Clinical Instructor Signature Printed Name and Credentials
--- NOTE | 2024-04-20 10:29 | PT.OTN ---
Current Diagnoses Pain in left shoulder (04/20/24) Sciatica, unspecified side (04/20/24) Pain in left hand (04/20/24) Physical Therapy Treatment Note PT-OP-A Visit Information Start: 04/10/24 07:48 Freq: Status: Active Protocol: Document 04/20/24 09:49 MB (Rec: 04/20/24 10:29 MB [id number]) Out-Patient Physical Therapy Visit Information Visit Information Visit Type Treatment Note Visit Note Medicare 11/30 before KX Progress note before 05/12 Visit Start Time 09:49 Visit Stop Time 10:30 Visit Number 2 Number of RELATIONSHIP SPECIALIST Visits 0 Evaluation Information Evaluation Date 04/11/24 Precautions Precautions Pt has problems with latex and adhesives. MRI left shoulder 04/17/24: IMPRESSION: 1. Moderate grade articular surface partial-thickness tear involving distal supraspinatus extending to musculotendinous junction. Moderate supraspinatus muscle atrophy. 2. Low-grade articular surface partial-thickness tear involving distal infraspinatus . Low-grade partial-thickness tear involving superior fibers of distal subscapularis. No full-thickness rotator cuff tendon rupture. 3. Mild to moderate acromioclavicular joint osteoarthritis. No fracture or dislocation. Moderate joint effusion and subacromial subdeltoid bursal fluid, no gross loose bodies. 4. Suggestion of superior anterior left shoulder labral tear. 5. Proximal long head of biceps tendinosis and low- grade intrasubstance partial- thickness tear. PT-OP-B Current Condition Start: 04/10/24 07:48 Freq: Status: Active Protocol: Document 04/11/24 07:30 MB (Rec: 04/11/24 08:15 MB [id number]) Current Condition History of Current Condition Onset Date April 2023 Current Complaints Left sided problems History of Current Condition Pt reports fall last April. She had a concussion and left shoulder injury and was found to have arthritis. She went to see [facility] last week and they would like a MRI to make sure that she does not have a rotator cuff tear. Pt is right handed. She has problems on her entire left side and has a history of sciatica. Her LLE and LUE occ swell up. She has history of LTKA 7 years ago. The sciatic a started 1.5 years ago and she had swelling on the back of her LLE after TKA. Pt is retired and she likes to quilt. Pt prefers to sleep on her left side. Reaching is problematic with her left arm and she has pain at night. Pt uses Voltaren during the day and lidocine patch at night. Pt has DM. 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 Prior Treatments and Tests Recent left shoulder x-ray at [facility] and OA, they would like a MRI Treatment Goals Patient/Caregiver Goals To decreased left shoulder pain and increase arm strength PT-OP-C Subjective Start: 04/10/24 07:48 Freq: Status: Active Protocol: Document 04/20/24 09:49 MB (Rec: 04/20/24 10:29 MB [id number]) OP-PT Subjective Patient Comments Patient Comments Pt had shoulder MRI at [place]. Results above in precautions. Pt sees Dr. Justice today. PT-OP-J Posture/Palpation/Skin Start: 04/10/24 07:48 Freq: Status: Active Protocol: Document 04/11/24 07:30 MB (Rec: 04/11/24 08:15 MB [id number]) Posture Evaluation Comments Posture Comments Increased soft tissue, more soft tissue left abdomen compared to the right, right shoulder is lower than the left, left thoracic convexity and right iliac crest higher than the right, overpronation on the right ankle and increased right knee valgus. PT-OP-K Range of Motion Start: 04/10/24 07:48 Freq: Status: Active Protocol: Document 04/11/24 07:30 MB (Rec: 04/11/24 08:15 MB [id number]) Cervical Spine Range of Motion Cervical Spine Active Testing Position Standing Flexion 20 Extension 40 Rotation Left 40 Rotation Right 50 Shoulder Goniometric Range of Motion Shoulder Left Shoulder ROM WFL No Testing Position Standing Flexion 135 Abduction 155 Internal Rotation Behind Back (text) L5 Comments AROM standing PROM hook lying with arm in 80 deg abduction, ER to 30 deg and IR to 15 deg Right Shoulder ROM WFL Yes Testing Position Standing Flexion 150 Abduction 165 Internal Rotation Behind Back (text) T11 Comments AROM standing PROM hook lying with arm in 90 /90: ER 90 deg and IR 80 deg PT-OP-M Strength Start: 04/10/24 07:48 Freq: Status: Active Protocol: Document 04/11/24 07:30 MB (Rec: 04/11/24 08:15 MB [id number]) Shoulder Strength Shoulder Manual Muscle Testing Left Comments Deferred MMT d/t painful and limited AROM Right Flexion 4 Good Abduction (C5) 5 Normal External Rotation 5 Normal Internal Rotation 5 Normal Elbow/Forearm Strength Elbow and Forearm Manual Muscle Testing Left Flexion (C6) 4 Good Extension (C7) 5 Normal Right Flexion (C6) 5 Normal Extension (C7) 5 Normal PT-OP-Q Treatments Start: 04/10/24 07:48 Freq: Status: Active Protocol: Document 04/20/24 09:49 MB (Rec: 04/20/24 10:29 MB [id number]) Cardio Equipment Upper Body Ergometer (UBE) Duration (Minutes) 12 Other Alternating forward and backward, alternating each minute after warm-up Therapeutic Exercises Supine Exercises Pelvic realignment exercises Equipment Used Blue ball Reps/Minutes 5 reps, 3 sec hold all exercises in order Comments Feet together ball squeeze isometric, knee opp ankle iso, knee press down i Sitting Exercises Blanca flexion and abduction (scaption) Reps/Minutes More than 20 reps of each, cues on form Standing Exercises Blanca bicycling Comments Back to column and forward and backward cycling circling 1' at a time, many Self-Care/Home Management Treatment Education Other Education Re-ed on sleeping position, findings of MRI and questions to ask ortho surgeon about con 't PT, benefits of ongoing PT, benefits of frozen peas for pain PT-OP-T Assessment and Plan Start: 04/10/24 07:48 Freq: Status: Active Protocol: Document 04/20/24 09:49 MB (Rec: 04/20/24 10:29 MB [id number]) Physical Therapy Assessment Rehab Potential Rehabilitation Potential Fair Evaluation Complexity Number of Personal Factors/Comorbidities 1-2 Number of Body Systems Impaired 1-2 Clinical Presentation at Evaluation Evolving Impairments Impairments Activity Tolerance,Pain, Posture,ROM,Soft Tissue Mobility,Strength Goals 3 Impairment Decreased left shoulder range [facility] Goal (LTG) Pt will present with left shoulder AROM flexion, abduction and IR similar to the left to improve functional ability to perform tasks overhead and behind back for bathing and dressing. LTG Duration 8 weeks 2 Impairment Lack of HEP [facility] Goal (LTG) Pt will perform progressive HEP with I including pelvic realignment, postural, range, flexibility, core and intrascapular and shoulder strengthening exercises to improve pain and function. LTG Duration 8 weeks 1 Impairment QuickDASH reflects 59.09% impairment Cigar Head Puncher Goal (LTG) Pt will present with improved QuickDASH score to reflect no more than 25% impairment to improve pain and quality of life with functional activities. LTG Duration 8 weeks Assessment Summary Assessment Pt with multiple positive findings on MRI that may need surgical intervention. PT and pt would like to con't PT efforts as long as PT can offer help in range, education , function and pain. Initiated AAROM with pulleys and arm bike today and pt does well and does not have immediate pain afterwards. Physical Therapy Plan Frequency and Duration Frequency of Treatment 1-2x/wk Duration of treatment (weeks) 8 Plan of Care Start Date 04/11/24 Plan of Care End Date 06/17/24 Therapeutic Interventions Therapeutic Interventions Balance Training,Canalithic Repositioning,Coordination Training,Home Exercise Program ,Joint Mobilizations,Manual Therapy,Neuromuscular Re- education,Patient/Caregiver Education,Self-Care/Home Management,Soft Tissue Mobilization,Therapeutic Activities,Therapeutic Exercises Modalities Cold Pack/Ice Massage,Hot Packs,Ultrasound Next Visit Focus/Plan Next Note Type Treatment Note Next Visit Plan Ongoing UBE, review pelvic realignment exercises, initiate manual work, consider body blade, pool noodle postural training and exercises and range
--- NOTE | 2024-04-22 15:02 | PT.OTN ---
Current Diagnoses Pain in left shoulder (04/22/24) Sciatica, unspecified side (04/22/24) Pain in left hand (04/22/24) Physical Therapy Treatment Note PT-OP-A Visit Information Start: 04/10/24 07:48 Freq: Status: Active Protocol: Document 04/22/24 08:04 AB (Rec: 04/22/24 09:49 AB [id number]) Out-Patient Physical Therapy Visit Information Visit Information Visit Type Treatment Note Visit Note Medicare 12/28 before KX Progress note before 05/12 Visit Start Time 09:03 Visit Stop Time 09:48 Visit Number 3 Number of DONATIONS ATTENDANT Visits 1 Evaluation Information Evaluation Date 04/11/24 Precautions Precautions Pt has problems with latex and adhesives. MRI left shoulder 04/17/24: IMPRESSION: 1. Moderate grade articular surface partial-thickness tear involving distal supraspinatus extending to musculotendinous junction. Moderate supraspinatus muscle atrophy. 2. Low-grade articular surface partial-thickness tear involving distal infraspinatus . Low-grade partial-thickness tear involving superior fibers of distal subscapularis. No full-thickness rotator cuff tendon rupture. 3. Mild to moderate acromioclavicular joint osteoarthritis. No fracture or dislocation. Moderate joint effusion and subacromial subdeltoid bursal fluid, no gross loose bodies. 4. Suggestion of superior anterior left shoulder labral tear. 5. Proximal long head of biceps tendinosis and low- grade intrasubstance partial- thickness tear. PT-OP-B Current Condition Start: 04/10/24 07:48 Freq: Status: Active Protocol: Document 04/11/24 07:30 MB (Rec: 04/11/24 08:15 MB [id number]) Current Condition History of Current Condition Onset Date April 2023 Current Complaints Left sided problems History of Current Condition Pt reports fall last April. She had a concussion and left shoulder injury and was found to have arthritis. She went to see [facility] last week and they would like a MRI to make sure that she does not have a rotator cuff tear. Pt is right handed. She has problems on her entire left side and has a history of sciatica. Her LLE and LUE occ swell up. She has history of LTKA 7 years ago. The sciatic a started 1.5 years ago and she had swelling on the back of her LLE after TKA. Pt is retired and she likes to quilt. Pt prefers to sleep on her left side. Reaching is problematic with her left arm and she has pain at night. Pt uses Voltaren during the day and lidocine patch at night. Pt has DM. 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 Prior Treatments and Tests Recent left shoulder x-ray at [facility] and OA, they would like a MRI Treatment Goals Patient/Caregiver Goals To decreased left shoulder pain and increase arm strength PT-OP-C Subjective Start: 04/10/24 07:48 Freq: Status: Active Protocol: Document 04/22/24 08:04 AB (Rec: 04/22/24 09:49 AB [id number]) OP-PT Subjective Patient Comments Patient Comments Patient reports she had a cortisone shot at ortho Thursday, comments she has not noticed any change in the shoulder. Patient comments that she hasn't started the HEP yet, hasn't gotten all the equipment yet. PT-OP-J Posture/Palpation/Skin Start: 04/10/24 07:48 Freq: Status: Active Protocol: Document 04/11/24 07:30 MB (Rec: 04/11/24 08:15 MB [id number]) Posture Evaluation Comments Posture Comments Increased soft tissue, more soft tissue left abdomen compared to the right, right shoulder is lower than the left, left thoracic convexity and right iliac crest higher than the right, overpronation on the right ankle and increased right knee valgus. PT-OP-K Range of Motion Start: 04/10/24 07:48 Freq: Status: Active Protocol: Document 04/11/24 07:30 MB (Rec: 04/11/24 08:15 MB [id number]) Cervical Spine Range of Motion Cervical Spine Active Testing Position Standing Flexion 20 Extension 40 Rotation Left 40 Rotation Right 50 Shoulder Goniometric Range of Motion Shoulder Left Shoulder ROM WFL No Testing Position Standing Flexion 135 Abduction 155 Internal Rotation Behind Back (text) L5 Comments AROM standing PROM hook lying with arm in 80 deg abduction, ER to 30 deg and IR to 15 deg Right Shoulder ROM WFL Yes Testing Position Standing Flexion 150 Abduction 165 Internal Rotation Behind Back (text) T11 Comments AROM standing PROM hook lying with arm in 90 /90: ER 90 deg and IR 80 deg PT-OP-M Strength Start: 04/10/24 07:48 Freq: Status: Active Protocol: Document 04/11/24 07:30 MB (Rec: 04/11/24 08:15 MB [id number]) Shoulder Strength Shoulder Manual Muscle Testing Left Comments Deferred MMT d/t painful and limited AROM Right Flexion 4 Good Abduction (C5) 5 Normal External Rotation 5 Normal Internal Rotation 5 Normal Elbow/Forearm Strength Elbow and Forearm Manual Muscle Testing Left Flexion (C6) 4 Good Extension (C7) 5 Normal Right Flexion (C6) 5 Normal Extension (C7) 5 Normal PT-OP-Q Treatments Start: 04/10/24 07:48 Freq: Status: Active Protocol: Document 04/22/24 08:04 AB (Rec: 04/22/24 09:49 AB [id number]) Cardio Equipment Upper Body Ergometer (UBE) Duration (Minutes) 4 RPM 60 Other standing 2 fwd 2 retro Therapeutic Exercises Supine Exercises abduction Supine Exercise Name on pool noodle AROM abd HEP Side bilateral Reps/Minutes X10 Comments verbal cues to keep back of UE on mat/limited ROM alternating UE flexion Supine Exercise Name on pool noodle Side bilateral Reps/Minutes X4 Comments not claudine chest recruiting specialist/pec stretch on pool noodle Supine Exercise Name HEP Side bilateral Reps/Minutes 2 min Pelvic realignment exercises Equipment Used Blue ball Reps/Minutes 5 reps, 3 sec hold all exercises in order Comments Feet together ball squeeze isometric, knee opp ankle iso, knee press down i Sidelying Exercises AROM Sidelying Exercise Name AROM IR Side left Reps/Minutes X10 Comments no change post manual and AROM left hand to left glute Manual Therapy Treatment Consent Patient gave verbal consent for manual Yes treatment Soft Tissue Mobilization Left glute, piriformis, quadratus, paraspinals Mobilization Type Cross-Friction,Rolling, Sustained Pressure Intensity/Depth Superficial Body Position Sidelying Comments prior to pelvic realignment exercise, monitored for pain Joint Mobilizations scapular mobilization Joint left scapula Direction into depression and adduction Grade II Body Position Sidelying Reps/Duration X10 each Comments monitored for pain left shoulder Joint GH Direction ap Grade II Body Position Hooklying Reps/Duration X10 PT-OP-T Assessment and Plan Start: 04/10/24 07:48 Freq: Status: Active Protocol: Document 04/22/24 08:04 AB (Rec: 04/22/24 09:49 AB [id number]) Physical Therapy Assessment Goals 3 Impairment Decreased left shoulder range Nursing Home Goal (LTG) Pt will present with left shoulder AROM flexion, abduction and IR similar to the left to improve functional ability to perform tasks overhead and behind back for bathing and dressing. LTG Duration 8 weeks 2 Impairment Lack of HEP Nursing Home Goal (LTG) Pt will perform progressive HEP with I including pelvic realignment, postural, range, flexibility, core and intrascapular and shoulder strengthening exercises to improve pain and function. LTG Duration 8 weeks 1 Impairment QuickDASH reflects 59.09% impairment Nursing Home Goal (LTG) Pt will present with improved QuickDASH score to reflect no more than 25% impairment to improve pain and quality of life with functional activities. LTG Duration 8 weeks Assessment Summary Assessment Patient reports the shoulder feels a little more sore end of session, gestures to left pec, lat deltoid area. Physical Therapy Plan Frequency and Duration Frequency of Treatment 1-2x/wk Duration of treatment (weeks) 8 Plan of Care Start Date 04/11/24 Plan of Care End Date 06/17/24 Next Visit Focus/Plan Next Note Type Treatment Note Next Visit Plan Ongoing UBE, progress manual work/possibly [place] protocol, consider body blade, Reasses claudine to pool noodle shoulder flexion, and assess claudine to HEP pool noodle pec stretch and shoulder abduction , postural training and exercises and range
--- NOTE | 2024-04-26 10:28 | PT.OTN ---
Current Diagnoses Pain in left shoulder (04/26/24) Sciatica, unspecified side (04/26/24) Pain in left hand (04/26/24) Physical Therapy Treatment Note PT-OP-A Visit Information Start: 04/10/24 07:48 Freq: Status: Active Protocol: Document 04/26/24 09:47 MB (Rec: 04/26/24 10:26 MB [id number]) Out-Patient Physical Therapy Visit Information Visit Information Visit Type Treatment Note Visit Note Medicare 12/28 before KX Progress note before 05/12 Visit Start Time 09:47 Visit Stop Time 10:27 Visit Number 4 Number of PRE WAVE ASSEMBLER Visits 0 Evaluation Information Evaluation Date 04/11/24 Precautions Precautions Pt has problems with latex and adhesives. MRI left shoulder 04/17/24: IMPRESSION: 1. Moderate grade articular surface partial-thickness tear involving distal supraspinatus extending to musculotendinous junction. Moderate supraspinatus muscle atrophy. 2. Low-grade articular surface partial-thickness tear involving distal infraspinatus . Low-grade partial-thickness tear involving superior fibers of distal subscapularis. No full-thickness rotator cuff tendon rupture. 3. Mild to moderate acromioclavicular joint osteoarthritis. No fracture or dislocation. Moderate joint effusion and subacromial subdeltoid bursal fluid, no gross loose bodies. 4. Suggestion of superior anterior left shoulder labral tear. 5. Proximal long head of biceps tendinosis and low- grade intrasubstance partial- thickness tear. PT-OP-B Current Condition Start: 04/10/24 07:48 Freq: Status: Active Protocol: Document 04/11/24 07:30 MB (Rec: 04/11/24 08:15 MB [id number]) Current Condition History of Current Condition Onset Date April 2023 Current Complaints Left sided problems History of Current Condition Pt reports fall last April. She had a concussion and left shoulder injury and was found to have arthritis. She went to see [facility] last week and they would like a MRI to make sure that she does not have a rotator cuff tear. Pt is right handed. She has problems on her entire left side and has a history of sciatica. Her LLE and LUE occ swell up. She has history of LTKA 7 years ago. The sciatic a started 1.5 years ago and she had swelling on the back of her LLE after TKA. Pt is retired and she likes to quilt. Pt prefers to sleep on her left side. Reaching is problematic with her left arm and she has pain at night. Pt uses Voltaren during the day and lidocine patch at night. Pt has DM. 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 Prior Treatments and Tests Recent left shoulder x-ray at [facility] and OA, they would like a MRI Treatment Goals Patient/Caregiver Goals To decreased left shoulder pain and increase arm strength PT-OP-C Subjective Start: 04/10/24 07:48 Freq: Status: Active Protocol: Document 04/26/24 09:47 MB (Rec: 04/26/24 10:26 MB [id number]) OP-PT Subjective Patient Comments Patient Comments Pt states that her shoulder is better. She has not had to have a lidocane patch to sleep . She had leg cramps that kept her up last night. She is going to see her doctor soon about her overall health. PT-OP-J Posture/Palpation/Skin Start: 04/10/24 07:48 Freq: Status: Active Protocol: Document 04/11/24 07:30 MB (Rec: 04/11/24 08:15 MB [id number]) Posture Evaluation Comments Posture Comments Increased soft tissue, more soft tissue left abdomen compared to the right, right shoulder is lower than the left, left thoracic convexity and right iliac crest higher than the right, overpronation on the right ankle and increased right knee valgus. PT-OP-K Range of Motion Start: 04/10/24 07:48 Freq: Status: Active Protocol: Document 04/11/24 07:30 MB (Rec: 04/11/24 08:15 MB [id number]) Cervical Spine Range of Motion Cervical Spine Active Testing Position Standing Flexion 20 Extension 40 Rotation Left 40 Rotation Right 50 Shoulder Goniometric Range of Motion Shoulder Left Shoulder ROM WFL No Testing Position Standing Flexion 135 Abduction 155 Internal Rotation Behind Back (text) L5 Comments AROM standing PROM hook lying with arm in 80 deg abduction, ER to 30 deg and IR to 15 deg Right Shoulder ROM WFL Yes Testing Position Standing Flexion 150 Abduction 165 Internal Rotation Behind Back (text) T11 Comments AROM standing PROM hook lying with arm in 90 /90: ER 90 deg and IR 80 deg PT-OP-M Strength Start: 04/10/24 07:48 Freq: Status: Active Protocol: Document 04/11/24 07:30 MB (Rec: 04/11/24 08:15 MB [id number]) Shoulder Strength Shoulder Manual Muscle Testing Left Comments Deferred MMT d/t painful and limited AROM Right Flexion 4 Good Abduction (C5) 5 Normal External Rotation 5 Normal Internal Rotation 5 Normal Elbow/Forearm Strength Elbow and Forearm Manual Muscle Testing Left Flexion (C6) 4 Good Extension (C7) 5 Normal Right Flexion (C6) 5 Normal Extension (C7) 5 Normal PT-OP-Q Treatments Start: 04/10/24 07:48 Freq: Status: Active Protocol: Document 04/26/24 09:47 MB (Rec: 04/26/24 10:26 MB [id number]) Cardio Equipment Upper Body Ergometer (UBE) Duration (Minutes) 10 Other Sitting, 1' forward and 1' backward Therapeutic Exercises Supine Exercises Pool noodle exercises Supine Exercise Name Flexion B and unilateral, Ts, 1/2X, pect stretch Equipment Used Red pool noodle, walking stick for flexion Comments Several reps AROM exercises, 1 rep pect stretch 30 sec hold Sitting Exercises Blanca flexion and abduction (scaption) Comments Many reps of all exercises including flexion, scaption, forward and backwar Manual Therapy Treatment Consent Patient gave verbal consent for manual Yes treatment Other Other Manual Treatments Pt supine with head and legs supported: B upper traps STM, pects with more tension right pect major, B 1st rib grade I- II mobs and isometric mob left first rib PT-OP-T Assessment and Plan Start: 04/10/24 07:48 Freq: Status: Active Protocol: Document 04/26/24 09:47 MB (Rec: 04/26/24 10:26 MB [id number]) Physical Therapy Assessment Rehab Potential Rehabilitation Potential Fair Evaluation Complexity Number of Personal Factors/Comorbidities 1-2 Number of Body Systems Impaired 1-2 Clinical Presentation at Evaluation Evolving Impairments Impairments Activity Tolerance,Pain, Posture,ROM,Soft Tissue Mobility,Strength Goals 3 Impairment Decreased left shoulder range Mcfp Goal (LTG) Pt will present with left shoulder AROM flexion, abduction and IR similar to the left to improve functional ability to perform tasks overhead and behind back for bathing and dressing. LTG Duration 8 weeks 2 Impairment Lack of HEP Topography Technician Goal (LTG) Pt will perform progressive HEP with I including pelvic realignment, postural, range, flexibility, core and intrascapular and shoulder strengthening exercises to improve pain and function. LTG Duration 8 weeks 1 Impairment QuickDASH reflects 59.09% impairment Topography Technician Goal (LTG) Pt will present with improved QuickDASH score to reflect no more than 25% impairment to improve pain and quality of life with functional activities. LTG Duration 8 weeks Assessment Summary Assessment Pt c/o cramping in legs last night and she limps into treatment, favoring LLE that she reports is the most problematic. She hopes to make appointment with doctor and spoke about hydration and electrolytes. Pt has history fo DM. Reviewed HEP of pulleys and pool noodle and con't to progress as able. Pt does have trouble/discomfort with pect stretch on pool noodle and half x when left arm is elevating and so ed pt to be mindful of this. Pt states that she has not yet exercised much at home and this is a barrier to PT. Physical Therapy Plan Frequency and Duration Frequency of Treatment 1-2x/wk Duration of treatment (weeks) 8 Plan of Care Start Date 04/11/24 Plan of Care End Date 06/17/24 Therapeutic Interventions Therapeutic Interventions Balance Training,Canalithic Repositioning,Coordination Training,Home Exercise Program ,Joint Mobilizations,Manual Therapy,Neuromuscular Re- education,Patient/Caregiver Education,Self-Care/Home Management,Soft Tissue Mobilization,Therapeutic Activities,Therapeutic Exercises Modalities Cold Pack/Ice Massage,Hot Packs,Ultrasound Next Visit Focus/Plan Next Note Type Treatment Note Next Visit Plan UBE, HEP review if needed, in future, consider progression of gentle strengthening with theraband over pool noodle, body blade, gentle core progression in hook lying
--- NOTE | 2024-05-04 08:09 | PT.OTN ---
Current Diagnoses Pain in left shoulder (05/04/24) Sciatica, unspecified side (05/04/24) Pain in left hand (05/04/24) Physical Therapy Treatment Note PT-OP-A Visit Information Start: 04/10/24 07:48 Freq: Status: Active Protocol: Document 05/04/24 07:32 MB (Rec: 05/04/24 07:38 MB [id number]) Out-Patient Physical Therapy Visit Information Visit Information Visit Type Progress Note Visit Note Medicare 02/27 before KX Visit Start Time 07:32 Visit Stop Time 08:12 Visit Number 5 Number of SENIOR RESEARCH SCIENTIST Visits 0 Evaluation Information Evaluation Date 04/11/24 Precautions Precautions Pt has problems with latex and adhesives. MRI left shoulder 04/17/24: IMPRESSION: 1. Moderate grade articular surface partial-thickness tear involving distal supraspinatus extending to musculotendinous junction. Moderate supraspinatus muscle atrophy. 2. Low-grade articular surface partial-thickness tear involving distal infraspinatus . Low-grade partial-thickness tear involving superior fibers of distal subscapularis. No full-thickness rotator cuff tendon rupture. 3. Mild to moderate acromioclavicular joint osteoarthritis. No fracture or dislocation. Moderate joint effusion and subacromial subdeltoid bursal fluid, no gross loose bodies. 4. Suggestion of superior anterior left shoulder labral tear. 5. Proximal long head of biceps tendinosis and low- grade intrasubstance partial- thickness tear. PT-OP-B Current Condition Start: 04/10/24 07:48 Freq: Status: Active Protocol: Document 04/11/24 07:30 MB (Rec: 04/11/24 08:15 MB [id number]) Current Condition History of Current Condition Onset Date April 2023 Current Complaints Left sided problems History of Current Condition Pt reports fall last April. She had a concussion and left shoulder injury and was found to have arthritis. She went to see [facility] last week and they would like a MRI to make sure that she does not have a rotator cuff tear. Pt is right handed. She has problems on her entire left side and has a history of sciatica. Her LLE and LUE occ swell up. She has history of LTKA 7 years ago. The sciatic a started 1.5 years ago and she had swelling on the back of her LLE after TKA. Pt is retired and she likes to [employer]. Pt prefers to sleep on her left side. Reaching is problematic with her left arm and she has pain at night. Pt uses Voltaren during the day and lidocine patch at night. Pt has DM. 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 Prior Treatments and Tests Recent left shoulder x-ray at [facility] and OA, they would like a MRI Treatment Goals Patient/Caregiver Goals To decreased left shoulder pain and increase arm strength PT-OP-C Subjective Start: 04/10/24 07:48 Freq: Status: Active Protocol: Document 05/04/24 07:32 MB (Rec: 05/04/24 07:39 MB [id number]) OP-PT Subjective Patient Comments Patient Comments Pt states that her left shoulder is feeling a lot better. She is able to sleep on that side. She got her pulleys and she is using them some, not every day. She is using the pool needle some but not everyday. Pt can now reach the coffee grounds with left hand which is above her head. PT-OP-J Posture/Palpation/Skin Start: 04/10/24 07:48 Freq: Status: Active Protocol: Document 04/11/24 07:30 MB (Rec: 04/11/24 08:15 MB [id number]) Posture Evaluation Comments Posture Comments Increased soft tissue, more soft tissue left abdomen compared to the right, right shoulder is lower than the left, left thoracic convexity and right iliac crest higher than the right, overpronation on the right ankle and increased right knee valgus. PT-OP-K Range of Motion Start: 04/10/24 07:48 Freq: Status: Active Protocol: Document 04/11/24 07:30 MB (Rec: 04/11/24 08:15 MB [id number]) Cervical Spine Range of Motion Cervical Spine Active Testing Position Standing Flexion 20 Extension 40 Rotation Left 40 Rotation Right 50 Shoulder Goniometric Range of Motion Shoulder Left Shoulder ROM WFL No Testing Position Standing Flexion 135 Abduction 155 Internal Rotation Behind Back (text) L5 Comments AROM standing PROM hook lying with arm in 80 deg abduction, ER to 30 deg and IR to 15 deg Right Shoulder ROM WFL Yes Testing Position Standing Flexion 150 Abduction 165 Internal Rotation Behind Back (text) T11 Comments AROM standing PROM hook lying with arm in 90 /90: ER 90 deg and IR 80 deg PT-OP-M Strength Start: 04/10/24 07:48 Freq: Status: Active Protocol: Document 04/11/24 07:30 MB (Rec: 04/11/24 08:15 MB [id number]) Shoulder Strength Shoulder Manual Muscle Testing Left Comments Deferred MMT d/t painful and limited AROM Right Flexion 4 Good Abduction (C5) 5 Normal External Rotation 5 Normal Internal Rotation 5 Normal Elbow/Forearm Strength Elbow and Forearm Manual Muscle Testing Left Flexion (C6) 4 Good Extension (C7) 5 Normal Right Flexion (C6) 5 Normal Extension (C7) 5 Normal PT-OP-Q Treatments Start: 04/10/24 07:48 Freq: Status: Active Protocol: Document 05/04/24 07:32 MB (Rec: 05/04/24 07:38 MB [id number]) Cardio Equipment Upper Body Ergometer (UBE) Duration (Minutes) 16 Other Sitting, 1' forward and 1' backward Therapeutic Exercises Supine Exercises Pool noodle exercises Supine Exercise Name Flexion B and unilateral, Ts, 1/2X, pect stretch Equipment Used Red pool noodle, walking stick for flexion Comments Several reps AROM exercises, a couple of shorter pect stretches d/t discomf Pelvic realignment exercises Equipment Used Blue ball Reps/Minutes 5 reps, 3 sec hold all exercises in order Comments Feet together ball squeeze isometric, knee opp ankle iso, knee press down i Sitting Exercises Blanca flexion and abduction (scaption) Comments Flexion, abduction, forward cycling and backwards cycling Standing Exercises AROM shoulders Comments Performed in standing and see goals for range PT-OP-T Assessment and Plan Start: 04/10/24 07:48 Freq: Status: Active Protocol: Document 05/04/24 07:32 MB (Rec: 05/04/24 07:51 MB [id number]) Physical Therapy Assessment Rehab Potential Rehabilitation Potential Fair Evaluation Complexity Number of Personal Factors/Comorbidities 1-2 Number of Body Systems Impaired 1-2 Clinical Presentation at Evaluation Evolving Impairments Impairments Activity Tolerance,Pain, Posture,ROM,Soft Tissue Mobility,Strength Goals 4 Impairment QuickDASH score reflects 25% impairment Chemist Assistant Goal (LTG) Pt will present with no more than 20% impairment on QuickDASH to improve functional I. LTG Duration 8 weeks 3 Impairment Decreased left shoulder range Mcc Goal (LTG) Pt will present with left shoulder AROM flexion, abduction and IR similar to the left to improve functional ability to perform tasks overhead and behind back for bathing and dressing. 05/04/24: AROM in standing: flexion right to 150 deg and left to 130 deg; right shoulder abduction to 160 deg and left to 150 deg. IR behind back: left hand about L3 and right hand about T11. LTG Duration 8 weeks 2 Impairment Lack of HEP Chemist Assistant Goal (LTG) Pt will perform progressive HEP with I including pelvic realignment, postural, range, flexibility, core and intrascapular and shoulder strengthening exercises to improve pain and function. 05/04/24: Some days, pt is performing pulleys and some days, she is performing pool noodle exercises. She is performing exercises 4 days a week, partially met goal. LTG Duration 8 weeks 1 Impairment QuickDASH reflects 59.09% impairment Chemist Assistant Goal (LTG) Pt will present with improved QuickDASH score to reflect no more than 25% impairment to improve pain and quality of life with functional activities. 05/04/24: QuickDASH reflects 25 % impairment, goal met and so will make more challenging as set above. LTG Duration 8 weeks Assessment Summary Assessment Pt has been performing HEP but not daily since starting PT. Her pain is much better and the shot appears to be working . PT spoke with pt about following up with PCP about her concerns about bone disease/asking PT about patrol conductor as PCP will manage this. QuickDASH score is improved. Range is mildly improved. She will benefit from ongoing PT to improve range and strength. Decreased HEP performance at home may be a barrier to progress. Physical Therapy Plan Frequency and Duration Frequency of Treatment 1-2x/wk Duration of treatment (weeks) 8 Plan of Care Start Date 04/11/24 Plan of Care End Date 06/17/24 Therapeutic Interventions Therapeutic Interventions Balance Training,Canalithic Repositioning,Coordination Training,Home Exercise Program ,Joint Mobilizations,Manual Therapy,Neuromuscular Re- education,Patient/Caregiver Education,Self-Care/Home Management,Soft Tissue Mobilization,Therapeutic Activities,Therapeutic Exercises Modalities Cold Pack/Ice Massage,Hot Packs,Ultrasound Next Visit Focus/Plan Next Note Type Treatment Note Next Visit Plan UBE, HEP review if needed, in future, consider progression of gentle strengthening with theraband over pool noodle, body blade, gentle core progression in hook lying
--- NOTE | 2024-05-10 08:16 | PT.OTN ---
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 MRI left shoulder 04/17/24: IMPRESSION: 1. Moderate grade articular surface partial-thickness tear involving distal supraspinatus extending to musculotendinous junction. Moderate supraspinatus muscle atrophy. 2. Low-grade articular surface partial-thickness tear involving distal infraspinatus . Low-grade partial-thickness tear involving superior fibers of distal subscapularis. No full-thickness rotator cuff tendon rupture. 3. Mild to moderate acromioclavicular joint osteoarthritis. No fracture or dislocation. Moderate joint effusion and subacromial subdeltoid bursal fluid, no gross loose bodies. 4. Suggestion of superior anterior left shoulder labral tear. 5. Proximal long head of biceps tendinosis and low- grade intrasubstance partial- thickness tear. PT-OP-B Current Condition Start: 04/10/24 07:48 Freq: Status: Active Protocol: Document 04/11/24 07:30 MB (Rec: 04/11/24 08:15 MB [id number]) Current Condition History of Current Condition Onset Date April 2023 Current Complaints Left sided problems History of Current Condition Pt reports fall last April. She had a concussion and left shoulder injury and was found to have arthritis. She went to see [facility] last week and they would like a MRI to make sure that she does not have a rotator cuff tear. Pt is right handed. She has problems on her entire left side and has a history of sciatica. Her LLE and LUE occ swell up. She has history of LTKA 7 years ago. The sciatic a started 1.5 years ago and she had swelling on the back of her LLE after TKA. Pt is retired and she likes to quilt. Pt prefers to sleep on her left side. Reaching is problematic with her left arm and she has pain at night. Pt uses Voltaren during the day and lidocine patch at night. Pt has DM. 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 Prior Treatments and Tests Recent left shoulder x-ray at [facility] and OA, they would like a MRI Treatment Goals Patient/Caregiver Goals To decreased left shoulder pain and increase arm strength PT-OP-C Subjective Start: 04/10/24 07:48 Freq: Status: Active Protocol: Document 05/10/24 07:33 SP (Rec: 05/10/24 08:18 SP [id number]) OP-PT Subjective Patient Comments Patient Comments Pt reports her L shoulder bothersome, has been out of town to grandchildren and not able to do exercises as much as should. Still having foot and leg cramps more and taking electrolyte in drinks and not seeing reduction. Physician discussed changing a medication (adding a statin but hasn't been on long, hx past been on lysinipril for BP ). She states when does exercises over noodle feels helpful. Can reach coffee on top refridge and hand up bathrobe better, less pain. She reports later in treatment that knows she lateral leans to R causing L shld be higher and R knee bent so is a challenge with correcting. PT-OP-J Posture/Palpation/Skin Start: 04/10/24 07:48 Freq: Status: Active Protocol: Document 04/11/24 07:30 MB (Rec: 04/11/24 08:15 MB [id number]) Posture Evaluation Comments Posture Comments Increased soft tissue, more soft tissue left abdomen compared to the right, right shoulder is lower than the left, left thoracic convexity and right iliac crest higher than the right, overpronation on the right ankle and increased right knee valgus. PT-OP-K Range of Motion Start: 04/10/24 07:48 Freq: Status: Active Protocol: Document 04/11/24 07:30 MB (Rec: 04/11/24 08:15 MB [id number]) Cervical Spine Range of Motion Cervical Spine Active Testing Position Standing Flexion 20 Extension 40 Rotation Left 40 Rotation Right 50 Shoulder Goniometric Range of Motion Shoulder Left Shoulder ROM WFL No Testing Position Standing Flexion 135 Abduction 155 Internal Rotation Behind Back (text) L5 Comments AROM standing PROM hook lying with arm in 80 deg abduction, ER to 30 deg and IR to 15 deg Right Shoulder ROM WFL Yes Testing Position Standing Flexion 150 Abduction 165 Internal Rotation Behind Back (text) T11 Comments AROM standing PROM hook lying with arm in 90 /90: ER 90 deg and IR 80 deg PT-OP-M Strength Start: 04/10/24 07:48 Freq: Status: Active Protocol: Document 04/11/24 07:30 MB (Rec: 04/11/24 08:15 MB [id number]) Shoulder Strength Shoulder Manual Muscle Testing Left Comments Deferred MMT d/t painful and limited AROM Right Flexion 4 Good Abduction (C5) 5 Normal External Rotation 5 Normal Internal Rotation 5 Normal Elbow/Forearm Strength Elbow and Forearm Manual Muscle Testing Left Flexion (C6) 4 Good Extension (C7) 5 Normal Right Flexion (C6) 5 Normal Extension (C7) 5 Normal PT-OP-Q Treatments Start: 04/10/24 07:48 Freq: Status: Active Protocol: Document 05/10/24 07:33 SP (Rec: 05/10/24 08:18 SP [id number]) Cardio Equipment Upper Body Ergometer (UBE) Duration (Minutes) 10 RPM 60 Seat Position 11 Height 3 Other Sitting, 1' forward and 1' backward Therapeutic Exercises Supine Exercises Pool noodle exercises Supine Exercise Name Flexion B and unilateral, Ts, 1/2X, pec stretch Resistance AROM 10 each, trial TB #1 light blue 10 each Equipment Used Red pool noodle, walking stick for flexion Reps/Minutes (next tx trial large noodle- has both home) Comments Several reps AROM exercises, a couple of shorter pect stretches d/t discomf Pelvic realignment exercises Supine Exercise Name performing at home- reports feels ok. Equipment Used Blue ball Reps/Minutes 5 reps, 3 sec hold all exercises in order Comments Feet together ball squeeze isometric, knee opp ankle iso, knee press down i Sitting Exercises Blanca flexion and abduction (scaption) Sitting Exercise Name Flexion, abduction, scaption, forward cycling, backwards cycling Side bilateral Resistance AAROM Reps/Minutes 20 each Comments cues slow pacing, no UT recruitment, pause end range allow claudine ROM Standing Exercises side bend Standing Exercise Name L side bend assist level shld& back alignment Resistance declined HO Equipment Used front mirror Reps/Minutes 2x5 Comments pnfree, feels will assist trunk/back/arm Self-Care/Home Management Treatment Education Patient Education Body Mechanics,Home Exercise Program,Pain Management, Posture Other Education Much time spent discussion postural alignment use mirror and using mirror for self corrections and assist of other help her notice. Provided L side bend AROM to support R side stretching with good feedback stretch. Suggested purse positioning cross body hanging on L to provide weight L assist counter act postural alignment with good feedback. added TB #1 to HEP over noodle PT-OP-T Assessment and Plan Start: 04/10/24 07:48 Freq: Status: Active Protocol: Document 05/10/24 07:33 SP (Rec: 05/10/24 08:18 SP [id number]) Physical Therapy Assessment Goals 4 Impairment QuickDASH score reflects 25% impairment Office Rep Goal (LTG) Pt will present with no more than 20% impairment on QuickDASH to improve functional I. LTG Duration 8 weeks 3 Impairment Decreased left shoulder range Office Rep Goal (LTG) Pt will present with left shoulder AROM flexion, abduction and IR similar to the left to improve functional ability to perform tasks overhead and behind back for bathing and dressing. 05/04/24: AROM in standing: flexion right to 150 deg and left to 130 deg; right shoulder abduction to 160 deg and left to 150 deg. IR behind back: left hand about L3 and right hand about T11. LTG Duration 8 weeks 2 Impairment Lack of HEP Usp Goal (LTG) Pt will perform progressive HEP with I including pelvic realignment, postural, range, flexibility, core and intrascapular and shoulder strengthening exercises to improve pain and function. 05/04/24: Some days, pt is performing pulleys and some days, she is performing pool noodle exercises. She is performing exercises 4 days a week, partially met goal. LTG Duration 8 weeks Assessment Summary Assessment Pt good response to addition to addition of theraband to UE supine over noodle exercises and scapular mobility, no adverse affects. Mod cues for slower pacing during pull and supine noodle exercises to allow GH Jt fluid ROM and not UT recruitment. Physical Therapy Plan Frequency and Duration Frequency of Treatment 1-2x/wk Duration of treatment (weeks) 8 Plan of Care Start Date 04/11/24 Plan of Care End Date 06/17/24 Therapeutic Interventions Therapeutic Interventions Balance Training,Canalithic Repositioning,Coordination Training,Home Exercise Program ,Joint Mobilizations,Manual Therapy,Neuromuscular Re- education,Patient/Caregiver Education,Self-Care/Home Management,Soft Tissue Mobilization,Therapeutic Activities,Therapeutic Exercises Modalities Cold Pack/Ice Massage,Hot Packs,Ultrasound Next Visit Focus/Plan Next Note Type Treatment Note Next Visit Plan Next ask response later day TB resistance and L side bend. POC: UBE, HEP review if needed , in future, consider progression, body blade, gentle core progression in hook lying
--- NOTE | 2024-05-25 11:58 | PT-OP ANOTE ---
Pt cancelled appointment today. Next appointment is with primary PT on 05/31/24 and will do a progress note on that date.
--- NOTE | 2024-05-31 08:51 | PT.OTN ---
Current Diagnoses Pain in left shoulder (05/31/24) Sciatica, unspecified side (05/31/24) Pain in left hand (05/31/24) Physical Therapy Treatment Note PT-OP-A Visit Information Start: 04/10/24 07:48 Freq: Status: Active Protocol: Document 05/31/24 08:12 MB (Rec: 05/31/24 08:48 MB [id number]) Out-Patient Physical Therapy Visit Information Visit Information Visit Type Discharge Summary Visit Note Medicare, 04/29 before KX Visit Start Time 08:12 Visit Stop Time 08:52 Visit Number 7 Number of CLINICAL NURSE SPECIALIST Visits 0 Evaluation Information Evaluation Date 04/11/24 Precautions Precautions Pt has problems with latex and adhesives. MRI left shoulder 04/17/24: IMPRESSION: 1. Moderate grade articular surface partial-thickness tear involving distal supraspinatus extending to musculotendinous junction. Moderate supraspinatus muscle atrophy. 2. Low-grade articular surface partial-thickness tear involving distal infraspinatus . Low-grade partial-thickness tear involving superior fibers of distal subscapularis. No full-thickness rotator cuff tendon rupture. 3. Mild to moderate acromioclavicular joint osteoarthritis. No fracture or dislocation. Moderate joint effusion and subacromial subdeltoid bursal fluid, no gross loose bodies. 4. Suggestion of superior anterior left shoulder labral tear. 5. Proximal long head of biceps tendinosis and low- grade intrasubstance partial- thickness tear. PT-OP-B Current Condition Start: 04/10/24 07:48 Freq: Status: Active Protocol: Document 04/11/24 07:30 MB (Rec: 04/11/24 08:15 MB [id number]) Current Condition History of Current Condition Onset Date April 2023 Current Complaints Left sided problems History of Current Condition Pt reports fall last April. She had a concussion and left shoulder injury and was found to have arthritis. She went to see [facility] last week and they would like a MRI to make sure that she does not have a rotator cuff tear. Pt is right handed. She has problems on her entire left side and has a history of sciatica. Her LLE and LUE occ swell up. She has history of LTKA 7 years ago. The sciatic a started 1.5 years ago and she had swelling on the back of her LLE after TKA. Pt is retired and she likes to quilt. Pt prefers to sleep on her left side. Reaching is problematic with her left arm and she has pain at night. Pt uses Voltaren during the day and lidocine patch at night. Pt has DM. 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 Prior Treatments and Tests Recent left shoulder x-ray at [facility] and OA, they would like a MRI Treatment Goals Patient/Caregiver Goals To decreased left shoulder pain and increase arm strength PT-OP-C Subjective Start: 04/10/24 07:48 Freq: Status: Active Protocol: Document 05/31/24 08:12 MB (Rec: 05/31/24 08:48 MB [id number]) OP-PT Subjective Patient Comments Patient Comments Pt states that her left shoulder is doing a lot better . She is able to tie an apron behind her back. [place] and she had the grandkids and did not exercise as she was busy, She can sleep on her left shoulder . She con't to c/o of muscle cramps all over. She can raise her arm up and it is not bothering her. PT-OP-J Posture/Palpation/Skin Start: 04/10/24 07:48 Freq: Status: Active Protocol: Document 04/11/24 07:30 MB (Rec: 04/11/24 08:15 MB [id number]) Posture Evaluation Comments Posture Comments Increased soft tissue, more soft tissue left abdomen compared to the right, right shoulder is lower than the left, left thoracic convexity and right iliac crest higher than the right, overpronation on the right ankle and increased right knee valgus. PT-OP-K Range of Motion Start: 04/10/24 07:48 Freq: Status: Active Protocol: Document 04/11/24 07:30 MB (Rec: 04/11/24 08:15 MB [id number]) Cervical Spine Range of Motion Cervical Spine Active Testing Position Standing Flexion 20 Extension 40 Rotation Left 40 Rotation Right 50 Shoulder Goniometric Range of Motion Shoulder Left Shoulder ROM WFL No Testing Position Standing Flexion 135 Abduction 155 Internal Rotation Behind Back (text) L5 Comments AROM standing PROM hook lying with arm in 80 deg abduction, ER to 30 deg and IR to 15 deg Right Shoulder ROM WFL Yes Testing Position Standing Flexion 150 Abduction 165 Internal Rotation Behind Back (text) T11 Comments AROM standing PROM hook lying with arm in 90 /90: ER 90 deg and IR 80 deg PT-OP-M Strength Start: 04/10/24 07:48 Freq: Status: Active Protocol: Document 04/11/24 07:30 MB (Rec: 04/11/24 08:15 MB [id number]) Shoulder Strength Shoulder Manual Muscle Testing Left Comments Deferred MMT d/t painful and limited AROM Right Flexion 4 Good Abduction (C5) 5 Normal External Rotation 5 Normal Internal Rotation 5 Normal Elbow/Forearm Strength Elbow and Forearm Manual Muscle Testing Left Flexion (C6) 4 Good Extension (C7) 5 Normal Right Flexion (C6) 5 Normal Extension (C7) 5 Normal PT-OP-Q Treatments Start: 04/10/24 07:48 Freq: Status: Active Protocol: Document 05/31/24 08:12 MB (Rec: 05/31/24 08:48 MB [id number]) Cardio Equipment Upper Body Ergometer (UBE) Duration (Minutes) 14 Other Sitting, 1' forward and 1' backwards Therapeutic Exercises Supine Exercises Pool noodle exercises Supine Exercise Name Flexion B and unilateral, Ts, 1/2X, pec stretch Resistance AROM 10 each, TB #1 light blue , LF green band 10 each Equipment Used Red pool noodle, walking stick for flexion Comments Several reps AROM exercises, a couple of shorter pect stretches d/t discomf Pelvic realignment exercises Equipment Used Blue ball Reps/Minutes 5 reps, 3 sec hold all exercises in order Comments Feet together ball squeeze isometric, knee opp ankle iso, knee press down i Sitting Exercises Blanca flexion and abduction (scaption) Sitting Exercise Name Flexion, abduction, forward cycling, backwards cycling Side bilateral Resistance AAROM Reps/Minutes Many reps Comments Cues for purer flexion and abduction range at this point d/t scaption tende Standing Exercises AROM shoulders Comments Performed today in standing and see goals for numbers PT-OP-T Assessment and Plan Start: 04/10/24 07:48 Freq: Status: Active Protocol: Document 05/31/24 08:12 MB (Rec: 05/31/24 08:48 MB [id number]) Physical Therapy Assessment Goals 4 Impairment QuickDASH score reflects 25% impairment Half-Way Goal (LTG) Pt will present with no more than 20% impairment on QuickDASH to improve functional I. 05/31/24: QuickDASH score is 13 out of 10 answered and score reflects 7.5% impairment LTG Duration Surpassed goal 3 Impairment Decreased left shoulder range Half-Way Goal (LTG) Pt will present with left shoulder AROM flexion, abduction and IR similar to the left to improve functional ability to perform tasks overhead and behind back for bathing and dressing. 05/04/24: AROM in standing: flexion right to 150 deg and left to 130 deg; right shoulder abduction to 160 deg and left to 150 deg. IR behind back: left hand about L3 and right hand about T11. 05/31/24: Shoulder flexion right 160 deg and left 148 deg ; shoulder abduction right 160 deg and left 146 deg; IR behind back right L11 and left L1 level. LTG Duration Improvements 2 Impairment Lack of HEP Half-Way Goal (LTG) Pt will perform progressive HEP with I including pelvic realignment, postural, range, flexibility, core and intrascapular and shoulder strengthening exercises to improve pain and function. 05/04/24: Some days, pt is performing pulleys and some days, she is performing pool noodle exercises. She is performing exercises 4 days a week, partially met goal. 05/31/24: Pt has not been performing exercises when traveling since 05/10/24 appointment and she has not been very compliant with HEP LTG Duration Little progression Assessment Summary Assessment Pt has met QuickDASH score since starting PT. She has not been very compliant with HEP and so this has been a barrier . She did have a shot and she is feeling a lot better and her shoulder is not bothering her anymore. She would like to d/c. Will d/c OPPT. Recommend follow-up with PCP about c/o all over muscle cramping. Encouraged pt to con't exercises at home.
== END 2024-06-17 15:14 | disposition home or self-care (01) ==
LOC: PHYS 08:15
PROVIDERS: Family Provider Nurse Practitioner; PCP Family Medicine; Referring Provider Family Medicine; Visit Provider Family Medicine
DX: M54.30 Sciatica, unspecified side (principal); M25.512 Pain in left shoulder; M79.642 Pain in left hand
CPT/HCPCS: 97110; 97140; 97161; 97535

== ENCOUNTER → 2024-06-07 07:29 | Outpatient (CLI) | payer MEDICARE, OTHER, SELFPAY ==
[2024-06-07 08:37] LABS: Add Manual Diff / Slide Review NO; Basophils Absolute Auto 0 /uL (0-100); Basophils Percent Auto 0.3 % (0-2); Eosinophils Absolute Auto 200 /uL (0-450); Eosinophils Percent Auto 3.9 % (2-4); Hematocrit 36.3 % (36-46); Hemoglobin 12.7 g/dL (12.0-16.0); Lymphocytes Absolute Auto 1700 /uL (1100-4500); Lymphocytes Percent Auto 31.3 % (25-40); Mean Corpuscular HGB Conc 34.9 % (30-36); Mean Corpuscular Hemoglobin 29.3 PG (26-34); Monocytes Absolute Auto 500 /uL (0-900); Monocytes Percent Auto 9.2 % (3-14); Neutrophils Absolute Auto 3000 /uL (1500-7000); Neutrophils Percent Auto 55.3 % (50-75); Platelet Count 264 X10^3/uL (150-400); Red Blood Cell Count 4.32 X10^6/uL (4.0-5.2); Red Cell Distribution Width 14.2 % (11.6-14.8); White Blood Cell Count 5.4 X10^3/uL (4.5-11.0)
[2024-06-07 08:38] LABS: Alanine Aminotransferase 28 IU/L (<35); Albumin 4.3 g/dL (3.5-5.0); Albumin Globulin Ratio 1.7 (1.0-2.8); Alkaline Phosphatase 68 U/L (38-126); Aspartate Aminotransferase 28 IU/L (14-36); BUN Creatinine Ratio 18.5 (6-22); Bilirubin Total 0.5 mg/dL (0.2-1.3); Blood Urea Nitrogen 12 mg/dL (7-17); Calcium 9.3 mg/dL (8.4-10.2); Carbon Dioxide 27 mmol/L (22-32); Chloride 97 mmol/L (98-107); Cholesterol 140 mg/dL (140-199); Estimated Glomerular Filt Rate > 60 mL/min (>60); Globulin 2.6 g/dL (1.7-4.1); Glucose 110 mg/dL (80-110); HDL Cholesterol 57 mg/dL (40-60); HEMOLYSIS < 15 (0-50); LDL Cholesterol Calculated 57 mg/dL (<100); Potassium 4.2 mmol/L (3.4-5.1); Sodium 132 mmol/L (137-145); Total Protein 6.9 g/dL (6.3-8.2); Triglycerides 128 mg/dL (35-150)
[2024-06-07 10:04] LABS: Hemoglobin A1C% w Est Avg Glu 5.5 % (4.0-6.0)
== END ==
PROVIDERS: Family Provider Nurse Practitioner; PCP Family Medicine; Referring Provider Family Medicine; Visit Provider Family Medicine
DX: E11.319 Type 2 diabetes mellitus with unspecified diabetic retinopathy without macular edema (principal); E78.2 Mixed hyperlipidemia; I10 Essential (primary) hypertension; D72.10 Eosinophilia, unspecified
CPT/HCPCS: 36415; 80053; 80061; 83036; 85025

== ENCOUNTER → 2024-10-10 15:14 | Outpatient (CLI) | payer MEDICARE, OTHER, SELFPAY ==
--- NOTE | 2024-10-10 15:15 | DI.MG.S_ITS ---
BILATERAL DIGITAL SCREENING MAMMOGRAM 3D/2D WITH CAD: 10/10/2024 CLINICAL: Routine screening. Family history of breast cancer. Comparison is made to exams dated: 11/03/2022 mammogram, 05/21/2020 mammogram, and 01/20/2019 mammogram - [facility]. There are scattered areas of fibroglandular density (category b / 25%-50% glandular tissue). Current study was also evaluated with a Computer Aided Detection (CAD) system. There is a benign intramammary node in both breasts. There also are benign calcifications in both breasts. No significant masses, calcifications, or other findings are seen in either breast. There has been no significant interval change. IMPRESSION: BENIGN There is no mammographic evidence of malignancy. A 1 year screening mammogram is recommended. Based on the Tyrer Cuzick model (a risk assessment model) the patient's lifetime risk is 8.9% and her 10 year risk is 4.7%. According to the ACR, ACS, and NCCN guidelines, an annual breast MRI exam along with mammogram is recommended if the patient's lifetime risk is 20% or greater. This exam was interpreted at Station ID: [id number]. NOTE: For mammograms, a report in lay terms will be sent to the patient. Approximately 15% of breast malignancies will not be visualized mammographically. In the management of a palpable breast mass, a negative mammogram must not discourage biopsy of a clinically suspicious lesion. Electronically Signed By: Jarek aldana/[place]:10/11/2024 07:55:14 letter sent: Normal Exam ACR BI-RADS Category 2: Benign
== END ==
PROVIDERS: Family Provider Nurse Practitioner; PCP Family Medicine; Referring Provider Family Medicine; Visit Provider Family Medicine
DX: Z12.31 Encounter for screening mammogram for malignant neoplasm of breast (principal); Z80.3 Family history of malignant neoplasm of breast
CPT/HCPCS: 77063; 77067

== ENCOUNTER → 2025-01-23 07:52 | Outpatient (CLI) | payer MEDICARE, OTHER, SELFPAY ==
[2025-01-23 08:44] LABS: Hemoglobin A1C% w Est Avg Glu 5.6 % (4.0-6.0)
[2025-01-23 08:56] LABS: Alanine Aminotransferase 34 IU/L (<35); Albumin 4.6 g/dL (3.5-5.0); Albumin Globulin Ratio 1.6 (1.0-2.8); Alkaline Phosphatase 62 U/L (38-126); Aspartate Aminotransferase 32 IU/L (14-36); BUN Creatinine Ratio 19.4 (6-22); Bilirubin Total 0.5 mg/dL (0.2-1.3); Blood Urea Nitrogen 14 mg/dL (7-17); Calcium 9.8 mg/dL (8.4-10.2); Carbon Dioxide 24 mmol/L (22-32); Chloride 104 mmol/L (98-107); Cholesterol 182 mg/dL (140-199); Estimated Glomerular Filt Rate > 60 mL/min (>60); Globulin 2.8 g/dL (1.7-4.1); Glucose 114 mg/dL (80-110); HDL Cholesterol 49 mg/dL (40-60); HEMOLYSIS < 15 (0-50); LDL Cholesterol Calculated 88 mg/dL (<100); Potassium 4.3 mmol/L (3.4-5.1); Sodium 139 mmol/L (137-145); Total Protein 7.4 g/dL (6.3-8.2); Triglycerides 225 mg/dL (35-150)
[2025-01-23 10:27] LABS: Creatinine Urine Random 131.47 mg/dL
[2025-01-23 10:33] LABS: Microalbumin Urine Random 0.6 mg/dL (0-1.6)
== END ==
PROVIDERS: Family Provider Nurse Practitioner; PCP Family Medicine; Referring Provider Family Medicine; Visit Provider Family Medicine
DX: E11.319 Type 2 diabetes mellitus with unspecified diabetic retinopathy without macular edema (principal); E11.39 Type 2 diabetes mellitus with other diabetic ophthalmic complication; Z13.220 Encounter for screening for lipoid disorders
CPT/HCPCS: 36415; 80053; 80061; 82043; 82570; 83036

== ENCOUNTER → 2025-03-30 14:10 | Outpatient (CLI) | payer MEDICARE, OTHER, SELFPAY ==
--- NOTE | 2025-03-30 14:11 | DI.US.S_ITS ---
PROCEDURE: US EXTREMITY NONVASC LOWER RT INDICATIONS: New lump in upper front of iqbal TECHNIQUE: Real-time scanning was performed of the right lateral lower extremity , with image documentation. COMPARISON: None. FINDINGS AND IMPRESSION: No discrete mass or fluid collection identified. Mild edema is seen in this region. Clinical followup is recommended. If there is new or worsening clinical concern, reimaging could be obtained. Dictated by: Raghavendra Denton M.D. on 03/31/2025 at 14:07 Approved by: Raghavendra Denton M.D. on 03/31/2025 at 14:08
--- NOTE | 2025-03-30 14:11 | DI.US.S_ITS ---
PROCEDURE: US EXTREMITY NONVASC LOWER LT INDICATIONS: New lump in lower outer iqbal TECHNIQUE: Real-time scanning was performed of the left lateral lower extremity , with image documentation. COMPARISON: [facility], , EXTREMITY NONVASC LOWER RT, 03/30/2025, 14:37. FINDINGS AND IMPRESSION: No defined mass or fluid collection identified by ultrasound. There is mild edema in the region of interest. Clinical followup is recommended. If there is new or worsening clinical concern, reimaging could be obtained. Dictated by: Raghavendra Denton M.D. on 03/31/2025 at 14:08 Approved by: Raghavendra Denton M.D. on 03/31/2025 at 14:09
== END ==
PROVIDERS: Family Provider Nurse Practitioner; PCP Family Medicine; Referring Provider Family Medicine; Visit Provider Family Medicine
DX: R22.41 Localized swelling, mass and lump, right lower limb (principal); R22.42 Localized swelling, mass and lump, left lower limb
CPT/HCPCS: 76882